=== PATIENT | male | born 1965 | race Caucasian/White ===

== ENCOUNTER 2022-04-30 08:44 | Inpatient (IN) ==
[2022-04-30] MEDS ORDERED: ASPIRIN CHEW 324 MG PO STA (08:53)
[2022-04-30] MEDS ORDERED: SODIUM CHLORIDE 0.9% 1000ML 1,000 ML IV ONE (08:55)
--- NOTE | 2022-04-30 08:55 | Emergency Department Note ---
Impression & Plan Syncope, Current tobacco use, Abnormal ECG, HTN (hypertension) ED Provider Note NAME: SHASTA PEREZ AGE: 56 SEX: M : 1965 ARRIVES VIA: Ambulance INFORMANT: Patient ED PROVIDER(S): Julio Cesar Fuentes DO CHIEF COMPLAINT: syncope HPI: Patient is a 56-year-old male who presents to the ER for syncope. He was working for [employer]. He was working and he felt very dizzy and lightheaded and passed out. He denies any chest pain or shortness of breath preceding or following the event. No belly pain, nausea, vomiting, or diarrhea. No dysuria, urgency, or frequency. No other exacerbating or remitting factors. Does have a history of hypertension, hyperlipidemia and is a smoker. ROS: See above HPI for pertinent positives & negatives. A total of 10 systems reviewed and were otherwise negative. PAST MEDICAL HISTORY:See Below PAST SURGICAL HISTORY:See Below FAMILY HISTORY:See Below SOCIAL HISTORY:See Below HOME MEDICATIONS:See Below ALLERGIES:See Below VITALS:See Below PHYSICAL EXAMINATION: GENERAL: Sitting up in bed, alert, well appearing, well nourished, no distress, non-toxic EYE EXAM: normal conjunctiva. OROPHARYNX: no exudate, no erythema, lips, buccal mucosa, and tongue normal and mucous membranes are moist NECK: supple, no nuchal rigidity, no adenopathy, non-tender LUNGS: Clear to auscultation. Normal chest wall mechanics HEART: no murmurs, S1 normal and S2 normal ABDOMEN: abdomen soft, non-tender, normo-active bowel sounds, no masses, no rebound or guarding. UPPER EXTREMITIES: upper extremities are grossly normal. LOWER EXTREMITIES: No pitting edema. NEURO EXAM: Normal sensorium, cranial nerves II-XII grossly intact, normal speech, no gross weakness of arms, no gross weakness of legs. MEDICAL DECISION MAKING: Patient is a 56-year-old male who presents ER for syncopal episode. IV was established blood work was obtained. He was brought in by EMS. Labs show no significant leukocytosis or anemia. BMP with slightly low CO2 at 19. There is no seizure activity per EMS. LFTs bilirubin were unremarkable. Troponin was negative. Lipase was unremarkable. COVID was negative. EKG showed ST depressions and T wave inversions in the inferior leads with no old to compare to. With his presentation of syncope and commendation with abnormal EKG and hypertension discussed with hospitalist for further evaluation. Triage Nursing notes reviewed. Limited review of prior medical records performed Vital Signs: reviewed and remarkable for no significant abnormalities Differential diagnosis: Differential diagnosis includes etiologies such as vasovagal event, infection, hypoglycemia, electrolyte abnormalities, cardiac sources, intracerebral event, toxicologic, neurologic, as well as others were entertained. ER treatment provided: See below Diagnostics interpreted by me: ECG: Sinus rhythm rate 86 ST depressions in inferior leads with T wave inversion Septal Q waves Nonspecific ST wave changes in the lateral leads QTC 418 Cardiac Monitoring: An order was placed for continuous cardiac monitoring. The monitor shows a rate of 89 with sinus rhythm. Laboratory studies: As stated above and show below. Imaging studies: Portable AP upright 1 view of the chest is unremarkable Consultation(s): Discussed with hospitalist for further evaluation [facility] Procedures: none Critical Care: None Past Med/Surg History Medical History Dyslipidemia Essential hypertension Surgical History History of hernia surgery S/P tonsillectomy Social History (Updated 04/30/22 @ 11:08 by Marlene De Los Santos PA-C) Smoking Status: Current every day smoker Tobacco Type: Cigarettes Cigarettes Per Day: 2 PPD since late teens; Do You Dip or Chew Tobacco: No; Tobacco Cessation Education Requested by Patient: No Hx Alcohol Use: Yes (Occasional depending on social setting - does not consume daily) Alcohol type: beer and wine Hx Substance Use: No Preferred Language: Guamanian Communication Ability: Effective Manager Mental Health Required: No Beliefs That Will Affect Care: None marital status: Current Living Situation: Spouse current occupational status: employed current occupation: works for [employer] Other Information That Helps Us Care for You: No Feels Safe at Home: Yes Safety Concerns: Feels Safe At This Time Assistive Devices: Glasses Allergies Allergies Allergy/AdvReac Type Severity Reaction Status Date / Time Penicillins Allergy Unknown Verified 05/31/19 11:50 Home Meds Home Medications Medication Instructions Recorded Confirmed amlodipine 5 mg tablet 5 mg PO DAILY 05/31/19 04/30/22 lisinopril 30 mg tablet 30 mg PO DAILY 05/31/19 04/30/22 rosuvastatin 10 mg tablet 10 mg PO DAILY 05/31/19 04/30/22 Results & Data (ED) Vital Signs Vital Signs - 24 hr 04/30/22 08:47 04/30/22 08:53 04/30/22 08:55 Temperature 36.5 C 36.5 C Temperature Source Oral Oral Pulse Rate 90 88 Pulse Rate [Left Finger] 89 Pulse Rhythm Regular Regular Pulse Rhythm [Left Finger] Regular Pulse Strength Normal Pulse Strength [Left Finger] Normal Respiratory Rate 21 21 21 Respiratory Effort / Characteristics Non-Labored Spontaneous Non-Labored Spontaneous Respiratory Depth Normal Normal Respiratory Pattern Regular Regular Blood Pressure 144/102 H Blood Pressure [Right Arm] 144/102 H Blood Pressure Mean 116 Blood Pressure Mean [Right Arm] 116 Blood Pressure Position Lying Blood Pressure Position [Right Arm] Lying Pulse Oximetry 96 97 97 Oxygen Delivery Method Room Air Room Air Room Air Sepsis Recent Fever Within 48 Hours No Sepsis New/Unexplained Change in Mental Status No Sepsis Action Taken by Nursing No Action Required 04/30/22 09:00 04/30/22 09:33 04/30/22 10:00 Temperature Temperature Source Pulse Rate Pulse Rate [Left Finger] 84 70 75 Pulse Rhythm Pulse Rhythm [Left Finger] Regular Regular Regular Pulse Strength Pulse Strength [Left Finger] Normal Normal Normal Respiratory Rate 18 18 17 Respiratory Effort / Characteristics Non-Labored Spontaneous Non-Labored Spontaneous Non-Labored Spontaneous Respiratory Depth Normal Normal Normal Respiratory Pattern Regular Blood Pressure Blood Pressure [Right Arm] 130/92 144/96 H 168/102 H Blood Pressure Mean Blood Pressure Mean [Right Arm] 104 112 124 Blood Pressure Position Blood Pressure Position [Right Arm] Lying Lying Lying Pulse Oximetry 98 97 99 Oxygen Delivery Method Room Air Room Air Room Air Sepsis Recent Fever Within 48 Hours Sepsis New/Unexplained Change in Mental Status Sepsis Action Taken by Nursing Laboratory Data Result diagrams: 04/30/22 08:55 04/30/22 08:55 Lab Results 04/30/22 04/30/22 04/30/22 Range/Units 08:55 08:55 08:55 WBC 10.11 (4.8-10.8) K/ul RBC 4.73 (4.63-6.08) M/uL Hgb 15.0 (14.0-18.0) g/dl Hct 43.3 (40.1-51.0) % MCV 91.5 (80.0-100.0) fL MCH 31.7 (25.0-34.0) pg MCHC 34.6 (32.0-36.0) g/dL RDW Std Deviation 45.1 (36.4-46.3) fL RDW Coeff of Bar 13.3 (11.5-14.5) % Plt Count 265 (130-400) K/uL MPV 9.6 (9.4-12.4) fL Immature Gran % (Auto) 0.4 % Neut % (Auto) 74.0 % Lymph % (Auto) 18.4 % [place] % (Auto) 6.0 % Eos % (Auto) 0.6 % Baso % (Auto) 0.6 % Neut # (Auto) 7.48 H (1.4-6.5) K/uL Lymph # (Auto) 1.86 (1.2-3.4) K/uL [place] # (Auto) 0.61 (0.24-0.82) K/uL Eos # (Auto) 0.06 (0-0.50) K/uL Baso # (Auto) 0.06 (0-0.2) K/uL Immature Gran # (Auto) 0.04 H (0.00-0.02) K/uL Sodium 139 (136-145) mmol/L Potassium 3.9 (3.5-5.1) mmol/L Chloride 107 (98-107) mmol/L Carbon Dioxide 19 L (21-32) mmol/L Anion Gap 13 H (3-11) BUN 8 (6-23) mg/dl Creatinine 0.89 (0.6-1.4) mg/dl Est Cr Clr Drug Dosing 94.0 ml/min Est GFR ( Amer) 110.0 ml/min Est GFR (Non-Af Amer) 94.9 ml/min BUN/Creatinine Ratio 9.0 L (10-20) Glucose 118 H (70-99(Fasting)) mg/dl Calcium 8.7 (8.5-10.1) mg/dl Total Bilirubin 0.4 (0.2-1.0) mg/dl AST 22 (13-39) U/L ALT 12 (7-52) U/L Alkaline Phosphatase 56 (34-104) U/L Troponin I High Sens 9.8 (0-20) pg/ml Total Protein 6.6 (6.0-8.3) gm/dl Albumin 3.9 (3.4-5.0) gm/dl Globulin 2.7 (2.5-4.0) gm/dl Albumin/Globulin Ratio 1.4 (0.9-2) Lipase 37 (11-82) U/L SARS-CoV-2, RNA, NAAT NEGATIVE (NEGATIVE) Administered Medications Amlodipine Besylate (Amlodipine Besylate 5 Mg Tab) 5 mg PO DAILY LILA Stop: 05/30/22 11:29 Last Admin: 04/30/22 12:38 Dose: 5 mg Documented by: [id number] Lisinopril (Lisinopril 10 Mg Tab) 30 mg PO DAILY LILA Stop: 05/30/22 11:29 Last Admin: 04/30/22 12:38 Dose: 30 mg Documented by: [id number] Rosuvastatin Calcium (Rosuvastatin Calcium 10 Mg Tab) 10 mg PO DAILY LILA Stop: 05/30/22 11:29 Last Admin: 04/30/22 12:39 Dose: 10 mg Documented by: [id number] Discontinued Medications Aspirin (Aspirin Chew 324 Mg) 324 mg PO NOW STA Stop: 04/30/22 08:54 Last Admin: 04/30/22 09:00 Dose: 324 mg Documented by: [id number] Sodium Chloride (Nss 1000ml) 1,000 mls @ 999 mls/hr IV .Q1H1M ONE Stop: 04/30/22 09:55 Last Infusion: 04/30/22 10:20 Dose: 0 mls/hr Documented by: [id number] Admin: 04/30/22 09:00 Dose: 999 mls/hr Documented by: [id number] Ioversol (Optiray 320 125ml) 120 ml IV ONCE ONE Stop: 04/30/22 12:36 Last Admin: 04/30/22 12:35 Dose: 120 ml Documented by: [id number] Imaging Data Radiologist's Impression: Chest X-Ray 04/30/22 08:52 XR chest 1V portable CLINICAL HISTORY: Chest Pain. COMPARISON STUDY: No previous studies for comparison. TECHNIQUE: 1 view of the chest FINDINGS: Single frontal view of the chest demonstrates the cardiomediastinal silhouette to be within normal limits. The lungs are clear of alveolar opacities. There is no evidence for pleural effusion. There is no evidence for vascular congestion. There is no acute osseous pathology. IMPRESSION: 1. No acute cardiopulmonary disease. ACT 112: Negative or not required by law. Electronically signed by: Bolivar Chand M.D. 04/30/2022 9:24 AM Discharge Plan Visit Data Chief Complaint: Syncope Stated Complaint: syncope ED Provider: Julio Cesar Fuentes Discharge Problem: Syncope, Current tobacco use, Abnormal ECG, HTN (hypertension) Patient Disposition: Admitted As Inpatient Discharge Instructions Interventions: ED Discharge Assessment Last Done: 04/30/22 10:48
[2022-04-30 09:07] LABS: Basophils # (auto) 0.06 K/uL (0-0.2); Basophils % (auto) 0.6 %; Eosinophils # (auto) 0.06 K/uL (0-0.50); Eosinophils % (auto) 0.6 %; Hematocrit (blood only) 43.3 % (40.1-51.0); Immature Granulocytes # (auto) 0.04 K/uL (0.00-0.02); Immature Granulocytes % (auto) 0.4 %; Lymphocytes # (auto) 1.86 K/uL (1.2-3.4); Lymphocytes % (auto) 18.4 %; Mean Corpuscular Hemoglobin 31.7 pg (25.0-34.0); Mean Corpuscular Hgb Conc 34.6 g/dL (32.0-36.0); Mean Corpuscular Volume 91.5 fL (80.0-100.0); Mean Platelet Volume 9.6 fL (9.4-12.4); Monocytes # (auto) 0.61 K/uL (0.24-0.82); Neutrophils # (auto) 7.48 K/uL (1.4-6.5); Platelet Count 265 K/uL (130-400); RDW Coefficient of Variation 13.3 % (11.5-14.5); RDW Standard Deviation 45.1 fL (36.4-46.3); Red Blood Count 4.73 M/uL (4.63-6.08); White Blood Count 10.11 K/ul (4.8-10.8)
--- NOTE | 2022-04-30 09:25 | XRay Report ---
XR chest 1V portable CLINICAL HISTORY: Chest Pain. COMPARISON STUDY: No previous studies for comparison. TECHNIQUE: 1 view of the chest FINDINGS: Single frontal view of the chest demonstrates the cardiomediastinal silhouette to be within normal li mits. The lungs are clear of alveolar opacities. There is no evidence for pleural effusion. There is no evidence for vascular congestion. There is no acute osseous pathology. IMPRESSION: 1. No acute cardiopulmonary disease. ACT 112: Negative or not required by law. Electronically signed by: Bolivar Chand M.D. 04/30/2022 9:24 AM
[2022-04-30 09:29] LABS: Albumin Globulin Ratio 1.4 (0.9-2); Albumin Level 3.9 gm/dl (3.4-5.0); Bilirubin,Total 0.4 mg/dl (0.2-1.0); Calcium 8.7 mg/dl (8.5-10.1); Est GFR (Non-African American) 94.9 ml/min; Globulin 2.7 gm/dl (2.5-4.0); Potassium 3.9 mmol/L (3.5-5.1); Total Protein 6.6 gm/dl (6.0-8.3)
[2022-04-30 09:35] LABS: Troponin I High Sensitivity 9.8 pg/ml (0-20)
--- NOTE | 2022-04-30 10:12 | History & Physical Report ---
Date of Service April 30, 2022 Assessment & Plan (1) Syncope: Plan: Seems more likely vasovagal based on clinical picture but question of EKG changes in ED and multiple cardiac risk factors so referred for additional work- up and observation - Observe in PCU overnight for arrhythmia - Check ECHO - CTA head/neck, CT head to evaluate for vascular/brain abnormalities - no known head trauma - Trend troponin, EKG in AM (2) Essential hypertension: Plan: Pt is not consistently taking his BP meds as outpatient - Continue home meds (3) Dyslipidemia: Plan: - Lipid panel in AM - Continue statin (4) Current tobacco use: Plan: Pt seen and reviewed with collaborating physician, Dr. Humphries. Plan of care discussed and as outlined above. Code Status: Full Code DVT Prophylaxis: Angelo De Los Santos PA-C History of Present Illness Chief Complaint: "passed out" this morning Primary Care Provider: Dr. Jocelyn Linares DO This is a 56 y/o male with a PMH of HTN, dyslipidemia and current tobaccco use who presented to the ED today with syncope. 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 The next thing he remembers is waking up with his co-worker who told him that he had passed out. Pt does not recall any specifics of the event. He was brought to the ED [facility]. In the ambulance, he had a slight STACY that has since resolved. He does not recall hitting his head. He is feeling at baseline at present. He denies chest pain or tightness, palpitations, SOB, N/V. He does not recall similar symptoms prior. He has a history of HTN and dyslipidemia but reports that he does not always take his medications consistently and did not take them this morning. He has noted improved in his BP as he has lost weight over the past year - both intentional and unintentional (needs dentures) - a total of 40-50 lbs lost. No prior cardiac work-up that he can recall. His father did have a stroke and his paternal uncle of a massive DE in his early 40s. Allergies Allergy/AdvReac Type Severity Reaction Status Date / Time Penicillins Allergy Unknown Verified 05/31/19 11:50 Home Medications Medication Instructions Recorded Confirmed Type amlodipine 5 mg tablet 5 mg PO DAILY 05/31/19 04/30/22 History lisinopril 30 mg tablet 30 mg PO DAILY 05/31/19 04/30/22 History rosuvastatin 10 mg tablet 10 mg PO DAILY 05/31/19 04/30/22 History Past Med/Surg History Medical History Dyslipidemia Essential hypertension Surgical History History of hernia surgery S/P tonsillectomy Social History (Updated 04/30/22 @ 11:08 by Marlene De Los Santos PA-C) Smoking Status: Current every day smoker Tobacco Type: Cigarettes Cigarettes Per Day: 2 PPD since late teens; Do You Dip or Chew Tobacco: No; Tobacco Cessation Education Requested by Patient: No Hx Alcohol Use: Yes (Occasional depending on social setting - does not consume daily) Alcohol type: beer and wine Hx Substance Use: No Preferred Language: [place] Islander Communication Ability: Effective Oenologist Required: No Beliefs That Will Affect Care: None marital status: Current Living Situation: Spouse current occupational status: employed current occupation: works for [employer] Other Information That Helps Us Care for You: No Feels Safe at Home: Yes Safety Concerns: Feels Safe At This Time Assistive Devices: Glasses Review of Systems Review of Systems: All systems reviewed & are unremarkable except as noted in HPI & below Constitutional: + weight loss (see HPI); no fever and no chills Eyes: no diplopia and no worsening vision Ear, Nose, Mouth, Throat: no nasal congestion, no sore throat and no dysphagia Respiratory: no cough, no dyspnea and no wheezing Cardiovascular: + syncope and + edema (occasional LE); no chest pain and no palpitations Gastrointestinal: no abdominal pain, no nausea, no vomiting, no diarrhea/loose stools and no blood in stools Genitourinary: no dysuria or no hematuria Musculoskeletal: + back pain (occasional) and + joint pain (occasional knee pain) Integumentary: no rash and no yellowing of the skin Neurologic: as per Subjective / HPI; no seizure-like activity, no headache(s) and no abnormal speech Psychiatric: no depression and no anxiety Physical Exam Constitutional: well developed and well nourished; no acute distress Eyes: PERRL, conjunctivae normal, anicteric sclerae EOM intact bilaterally Neck: trachea midline Respiratory: no respiratory distress and no labored breathing Auscultation: lungs clear to auscultation bilaterally; no rales, no rhonchi and no wheezes Cardiovascular: Rate/Rhythm: regular rate and regular rhythm Heart Sounds: no gallop, no murmur and no cardiac rub Vessels: radial pulses present; no JVD and no carotid bruit Extremities: no edema Gastrointestinal (Abdomen): Inspection/Auscultation: normal bowel sounds; abdomen not distended Percussion/Palpation: abdomen soft; abdomen nontender Musculoskeletal: Head/Neck/Chest: normocephalic, head atraumatic and neck supple Skin: no jaundice Neurologic: moves all extremities; no focal motor deficits and not confused Speech / Cognition: normal speech Motor/Sensory: no fasciculations, no pronator drift and no asterixis Cranial Nerves: PERRL, normal accommodation, EOM intact bilaterally, normal facial strength, tongue midline, able to rotate head bilaterally, able to elevate shoulders bilaterally and symmetric palate elevation Psychiatric: A+Ox3, euthymic affect Results & Data Results & Data ([facility]) Vital Signs (Past 12 Hours) Vital Signs Temp Pulse Pulse Resp BP BP Pulse Ox 04/30/22 10:00 75 17 168/102 H 99 04/30/22 09:33 70 18 144/96 H 97 04/30/22 09:00 84 18 130/92 98 04/30/22 08:55 88 21 97 04/30/22 08:53 36.5 C 89 21 144/102 H 97 04/30/22 08:47 36.5 C 90 21 144/102 H 96 Laboratory Results Laboratory Results - last 24 hr 04/30/22 04/30/22 04/30/22 08:55 08:55 08:55 WBC 10.11 RBC 4.73 Hgb 15.0 Hct 43.3 MCV 91.5 MCH 31.7 MCHC 34.6 RDW Std Deviation 45.1 RDW Coeff of Bar 13.3 Plt Count 265 MPV 9.6 Immature Gran % (Auto) 0.4 Neut % (Auto) 74.0 Lymph % (Auto) 18.4 [place] % (Auto) 6.0 Eos % (Auto) 0.6 Baso % (Auto) 0.6 Neut # (Auto) 7.48 H Lymph # (Auto) 1.86 [place] # (Auto) 0.61 Eos # (Auto) 0.06 Baso # (Auto) 0.06 Immature Gran # (Auto) 0.04 H Sodium 139 Potassium 3.9 Chloride 107 Carbon Dioxide 19 L Anion Gap 13 H BUN 8 Creatinine 0.89 Est Cr Clr Drug Dosing 94.0 Est GFR ( Amer) 110.0 Est GFR (Non-Af Amer) 94.9 BUN/Creatinine Ratio 9.0 L Glucose 118 H Calcium 8.7 Total Bilirubin 0.4 AST 22 ALT 12 Alkaline Phosphatase 56 Troponin I High Sens 9.8 Total Protein 6.6 Albumin 3.9 Globulin 2.7 Albumin/Globulin Ratio 1.4 Lipase 37 SARS-CoV-2, RNA, NAAT NEGATIVE Diagnostic Findings Chest X-ray 04/30/22 - IMPRESSION: 1. No acute cardiopulmonary disease. Medications Administered Discontinued Medications Aspirin (Aspirin Chew 324 Mg) 324 mg PO NOW STA Stop: 04/30/22 08:54 Last Admin: 04/30/22 09:00 Dose: 324 mg Documented by: [id number] Sodium Chloride (Nss 1000ml) 1,000 mls @ 999 mls/hr IV .Q1H1M ONE Stop: 04/30/22 09:55 Last Admin: 04/30/22 09:00 Dose: 999 mls/hr Documented by: [id number] Supervising Physician Co-Signing Physician Notes Pt was seen and examined/. Agreed with Rajinder GALLO exam, assessment and plan. 56 y/o male with a PMH of HTN, dyslipidemia and tobacco use who presented to the ED today with syncope. 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 Pt said that he was sweating a lot that is unusual for him. He said the next that he was seeing his co-worker next to him who told him that he had passed out. He denied any chest pain, palpitation, dizziness and SOB prior to the event. Exam showed no focal neuro deficit, Cardiac exam with no murmur and regular rate. Currently he said that he feels fine. Episode seems to be vasovagal but needs to r/o cardiac and neurological etiology. Will get a CT head and CTA head and neck. Will get an echo. Will monitor closely in telemetry. Fall precaution. MD Kristel
[2022-04-30] MEDS ORDERED: ACETAMINOPHEN 325 MG TAB PO PRN (11:04)
[2022-04-30] MEDS ORDERED: OPTIRAY 320 125ml IV ONE (12:35)
[2022-04-30] MEDS: lisinopril 10 MG TAB PO SCH (12:38)
[2022-04-30] MEDS: amLODIPine BESYLATE 5 MG TAB PO SCH (12:38)
[2022-04-30] MEDS: ROSUVASTATIN CALCIUM 10 MG TAB PO SCH (12:39)
--- NOTE | 2022-04-30 12:52 | CT Scan Report ---
CT angio neck with con, CT head/brain wo con, CT angio head w con CLINICAL HISTORY: syncope TECHNIQUE: Contiguous axial CT images of the head were acquired from the base of the skull to the sally anika without intravenous contrast administration. CT angiography of the head and neck was performed f ollowing intravenous administration of iodinated contrast. Coronal and sagittal MIPS were obtained fr om the axial data set and were submitted for review. Automated dose lowering techniques and/or adjus tment according to patient size were utilized for this examination. All measurements were calculated based on NASCET criteria. CT DOSE: 1047.45 mGy.cm Comparison: None available at the time of this dictation. FINDINGS: CT head: Areas of decreased attenuation are present in the periventricular and subcortical white hai er bilaterally consistent with small vessel ischemic disease. Generalized cerebral atrophy with comme nsurate enlargement of the ventricles, sulci, and cisterns is also present. Calcific densities are se en in the left cerebellum is noted. Lungs and soft tissues are unremarkable. CTA Neck: A 3 vessel aortic arch is shown. There is no significant atherosclerotic plaque in the aor tic arch or the origins of the innominate, left common carotid, and left subclavian arteries. The c ommon carotid, external carotid, cervical segments of the internal carotid arteries, and the cervical segments of the vertebral arteries are patent without hemodynamically significant stenosis. Codomina nt CTA Head: The anterior and posterior cerebral circulations are patent. No hemodynamically significan t stenosis, aneurysm, dissection, or arteriovenous malformation is shown. Atherosclerotic disease is noted. IMPRESSION: 1. No acute intracranial hemorrhage, evidence of acute territorial infarction, or other acute intrac ranial disease process. Calcifications in the left cerebellum are likely chronic. 2. No occlusion, hemodynamically significant stenosis, aneurysm, dissection, or arteriovenous malfor mation in the major intracranial arteries. 3. No occlusion, hemodynamically significant stenosis, or dissection in the major cervical arteries. Assessment of stenosis of the internal carotid arteries is based on NASCET criteria. ACT 112: Negative or not required by law. Electronically signed by: Tomás Simmons M.D. 04/30/2022 12:50 PM
--- NOTE | 2022-04-30 13:03 | Electrocardiogram Report ---
Test Reason : Blood Pressure : / mmHG Vent. Rate : 086 BPM Atrial Rate : 086 BPM P-R Int : 146 ms QRS Dur : 082 ms QT Int : 350 ms P-R-T Axes : 075 056 -26 degrees QTc Int : 418 ms Normal sinus rhythm Abnormal ECG No previous ECGs available Confirmed by Sherif Archibald ([id number]) on 04/30/2022 1:03:06 PM Referred By: REFERRED SELF Confirmed By:Jitendra Archibald
[2022-05-01 06:07] LABS: Basophils # (auto) 0.06 K/uL (0-0.2); Basophils % (auto) 0.8 %; Eosinophils # (auto) 0.09 K/uL (0-0.50); Eosinophils % (auto) 1.2 %; Hematocrit (blood only) 40.8 % (40.1-51.0); Immature Granulocytes # (auto) 0.02 K/uL (0.00-0.02); Immature Granulocytes % (auto) 0.3 %; Lymphocytes # (auto) 2.29 K/uL (1.2-3.4); Lymphocytes % (auto) 31.5 %; Mean Corpuscular Hemoglobin 31.7 pg (25.0-34.0); Mean Corpuscular Hgb Conc 34.3 g/dL (32.0-36.0); Mean Corpuscular Volume 92.3 fL (80.0-100.0); Mean Platelet Volume 9.7 fL (9.4-12.4); Monocytes # (auto) 0.73 K/uL (0.24-0.82); Neutrophils # (auto) 4.09 K/uL (1.4-6.5); Neutrophils % (auto) 56.2 %; Platelet Count 228 K/uL (130-400); RDW Coefficient of Variation 13.1 % (11.5-14.5); RDW Standard Deviation 44.7 fL (36.4-46.3); Red Blood Count 4.42 M/uL (4.63-6.08); White Blood Count 7.28 K/ul (4.8-10.8)
[2022-05-01 06:34] LABS: BUN Creatinine Ratio 13.2 (10-20); Calcium 8.2 mg/dl (8.5-10.1); Chol HDL Ratio 2.6 (0-5); Creatinine Clr Calc Pharmacy 108.2 ml/min; Est GFR (African American) 122.9 ml/min; Potassium 3.9 mmol/L (3.5-5.1)
[2022-05-01] MEDS: amLODIPine BESYLATE 5 MG TAB PO SCH (08:09)
[2022-05-01] MEDS: lisinopril 10 MG TAB PO SCH (08:09)
[2022-05-01] MEDS: ROSUVASTATIN CALCIUM 10 MG TAB PO SCH (08:09)
--- NOTE | 2022-05-01 10:36 | Hospitalist Progress Note ---
Date of Service May 01, 2022 Assessment & Plan (1) Syncope: Plan: Initially believed to be likely vasovagal based on clinical picture but question of EKG changes in ED and multiple cardiac risk factors so referred for additional work-up and observation - admitted for Observation in PCU overnight for arrhythmia - ECHO obtained - no significant valvular pathology noted, EF ~60%, no hypokinesis noted - no known head trauma - CTA head/neck, CT head to evaluate for vascular/brain abnormalities - obtained and unremarkable - Trend troponin, EKG in AM - initial troponin in ED negative, repeat troponin 119 - pt without any chest pain. Admitting physician obtained EKG - this AM repeat EKG w/ changes T wave inversions -pt continues to be w/o any chest pain, and been ambulating hallways -reports significant diaphoresis prior to his syncopal episode (pt also had si gnificant exertion, lifting heavy grates outside in hot weather) - Cardiology was consulted for further evaluation - pt to catheter builder, underwent stent to LAD - tolerated procedure well (2) Essential hypertension: Plan: Pt is not consistently taking his BP meds as outpatient - Continue home meds, will discuss further prior to DC (3) Dyslipidemia: Plan: - Lipid panel - Continue statin (4) Current tobacco use: Plan Code Status: Full Code DVT Prophylaxis: SCDs Admission and Anticipated Discharge Date Admission Date: April 30, 2022 Subjective Patient seen in follow-up of syncope Yesterday pt's troponin elevated, pt denied any chest pain, and has been walking in hallways Reports significant diaphoresis prior to syncopal episode echo obtained yesterday, and CTA head and neck EKG changes noted this AM - cardiology consulted Pt denies fever, chills, chest pain, shortness of breath, abd. pain, n/v Pt underwent cardiac cath - s/p stent to LAD - he is feeling well after procedure Review of Systems Review of Systems: All systems reviewed & are unremarkable except as noted in Subjective Physical Exam Physical Exam: Constitutional:L well developed and well nourished; n o acute distress Eyes: PERRL, conjunctiva e normal, anicteri c sclerae EOM int act bilaterally Neck: trachea midline Respiratory: no respiratory dis tress and no labor ed breathing Ausc ultation: lungs cl ear to auscultatio n bilaterally; no rales, no rhonchi and no wheezes Cardiovascular:L Rate/Rhythm: regul ar rate and regula r rhythm Heart So unds: no gallop, n o murmur and no ca rdiac rubExtremit ies: no edema Gastrointestinal ( Abdomen): Inspection/Auscult ation: normal zoraida l sounds; abdomen not distended Per cussion/Palpation: abdomen soft; abd omen nontender Musculoskeletal: Head/Neck/Chest: n ormocephalic, head atraumatic and ne ck supple Skin: no jaundice Neurologic: moves all extremit ies; no focal blaire r deficits and not confused Speech / Cognition: dionte l speechCranial N erves: PERRL, EOM intact bilaterally , no facial asymme try Psychiatric: A+Ox3, euthymic af fect Results & Data Results & Data ([facility]) Vital Signs (Past 12 Hours) Vital Signs Temp Pulse Pulse Resp BP Pulse Ox 05/01/22 08:07 36.4 C L 57 L 20 132/85 99 05/01/22 07:15 62 05/01/22 03:49 36.4 C L 67 18 146/95 H 97 04/30/22 23:41 36.7 C 65 18 133/82 98 Laboratory Results 05/01/22 05/01/22 05/01/22 Range/Units 05:40 05:40 05:40 WBC 7.28 (4.8-10.8) K/ul RBC 4.42 L (4.63-6.08) M/uL Hgb 14.0 (14.0-18.0) g/dl Hct 40.8 (40.1-51.0) % MCV 92.3 (80.0-100.0) fL MCH 31.7 (25.0-34.0) pg MCHC 34.3 (32.0-36.0) g/dL RDW Std Deviation 44.7 (36.4-46.3) fL RDW Coeff of Bar 13.1 (11.5-14.5) % Plt Count 228 (130-400) K/uL MPV 9.7 (9.4-12.4) fL Immature Gran % (Auto) 0.3 % Neut % (Auto) 56.2 % Lymph % (Auto) 31.5 % [place] % (Auto) 10.0 % Eos % (Auto) 1.2 % Baso % (Auto) 0.8 % Neut # (Auto) 4.09 (1.4-6.5) K/uL Lymph # (Auto) 2.29 (1.2-3.4) K/uL [place] # (Auto) 0.73 (0.24-0.82) K/uL Eos # (Auto) 0.09 (0-0.50) K/uL Baso # (Auto) 0.06 (0-0.2) K/uL Immature Gran # (Auto) 0.02 (0.00-0.02) K/uL Sodium 137 (136-145) mmol/L Potassium 3.9 (3.5-5.1) mmol/L Chloride 108 H (98-107) mmol/L Carbon Dioxide 23 (21-32) mmol/L Anion Gap 6 (3-11) BUN 9 (6-23) mg/dl Creatinine 0.68 (0.6-1.4) mg/dl Est Cr Clr Drug Dosing 108.2 ml/min Est GFR ( Amer) 122.9 ml/min Est GFR (Non-Af Amer) 106.0 ml/min BUN/Creatinine Ratio 13.2 (10-20) Glucose 95 (70-99(Fasting)) mg/dl Calcium 8.2 L (8.5-10.1) mg/dl Troponin I High Sens (0-20) pg/ml Triglycerides 73 (0-150) mg/dl Cholesterol 134 (0-200) mg/dl LDL Cholesterol, Calc 67 mg/dl VLDL Cholesterol, Calc 15 (0-30) mg/dl HDL Cholesterol 52 mg/dl Cholesterol/HDL Ratio 2.6 (0-5) TSH 1.101 (0.300-4.500) uIu/ml Hepatitis C Ab (EIA) Hep C Ab Signal/Cutoff 05/01/22 04/30/22 04/30/22 Range/Units 05:40 20:57 14:50 WBC (4.8-10.8) K/ul RBC (4.63-6.08) M/uL Hgb (14.0-18.0) g/dl Hct (40.1-51.0) % MCV (80.0-100.0) fL MCH (25.0-34.0) pg MCHC (32.0-36.0) g/dL RDW Std Deviation (36.4-46.3) fL RDW Coeff of Bar (11.5-14.5) % Plt Count (130-400) K/uL MPV (9.4-12.4) fL Immature Gran % (Auto) % Neut % (Auto) % Lymph % (Auto) % [place] % (Auto) % Eos % (Auto) % Baso % (Auto) % Neut # (Auto) (1.4-6.5) K/uL Lymph # (Auto) (1.2-3.4) K/uL [place] # (Auto) (0.24-0.82) K/uL Eos # (Auto) (0-0.50) K/uL Baso # (Auto) (0-0.2) K/uL Immature Gran # (Auto) (0.00-0.02) K/uL Sodium (136-145) mmol/L Potassium (3.5-5.1) mmol/L Chloride (98-107) mmol/L Carbon Dioxide (21-32) mmol/L Anion Gap (3-11) BUN (6-23) mg/dl Creatinine (0.6-1.4) mg/dl Est Cr Clr Drug Dosing ml/min Est GFR ( Amer) ml/min Est GFR (Non-Af Amer) ml/min BUN/Creatinine Ratio (10-20) Glucose (70-99(Fasting)) mg/dl Calcium (8.5-10.1) mg/dl Troponin I High Sens 66.5 H* D 119.1 H* D (0-20) pg/ml Triglycerides (0-150) mg/dl Cholesterol (0-200) mg/dl LDL Cholesterol, Calc mg/dl VLDL Cholesterol, Calc (0-30) mg/dl HDL Cholesterol mg/dl Cholesterol/HDL Ratio (0-5) TSH (0.300-4.500) uIu/ml Hepatitis C Ab (EIA) Pending Hep C Ab Signal/Cutoff Pending Medications Administered Current Inpatient Medications Acetaminophen (Acetaminophen 325 Mg Tab) 650 mg PO Q4H PRN PRN Reason: Pain or Fever Stop: 05/30/22 11:03 Amlodipine Besylate (Amlodipine Besylate 5 Mg Tab) 5 mg PO DAILY [facility] Stop: 05/30/22 11:29 Last Admin: 05/01/22 08:09 Dose: 5 mg Documented by: Lisinopril (Lisinopril 10 Mg Tab) 30 mg PO DAILY [facility] Stop: 05/30/22 11:29 Last Admin: 05/01/22 08:09 Dose: 30 mg Documented by: Rosuvastatin Calcium (Rosuvastatin Calcium 10 Mg Tab) 10 mg PO DAILY [facility] Stop: 05/30/22 11:29 Last Admin: 05/01/22 08:09 Dose: 10 mg Documented by: (1) Syncope Syncope type: unspecified Qualified Code(s): R55 - Syncope and collapse
--- NOTE | 2022-05-01 11:51 | Cardiology Consultation ---
Date of Consultation May 01, 2022 Assessment & Plan (1) Abnormal ECG: (2) HTN (hypertension): (3) Syncope: (4) Elevated troponin: Plan Patient admitted after syncopal event yesterday associated with diaphoresis. Initial EKG with T wave inversion in inferior leads. Minimally elevated troponin overnight. No recurrent symptoms. EKG this morning with acute changes, transient. ST/T wave elevation in anterolateral leads. No symptoms at the time. Repeat troponin pending. Given his recent events, elevated troponin, abnormal EKG, and cardiac risk factors, recommend proceeding with diagnostic cardiac catheterization. NPO at this time. Repeat EKG with resolution of anterolateral ST/T wave abnormality. Persistent T wave inversion in inferior leads. Echo yesterday without acute changes/findings. Case discussed with Dr. Narayan. Plan for cath this afternoon. Patient/ agreeable. Taken to [employer] lab[employer]. Supervising Physician Co-Signing Physician Notes Patient seen examined the bedside. Denies chest pain or shortness of breath. Reports excessive diaphoresis yesterday followed by syncope while at work. Feeling well overnight. ECG performed in the early a.m. hours demonstrating ST elevation in the anterior lateral leads concerning for acute injury pattern. PE: VSS. Gen: NAD, AAO x3. Heart: Regular, normal S1-S2. No murmur. Lungs: Clear bilateral, no rales rhonchi or wheeze. Extremities: No edema. Palpable radial and femoral pulses. A/P: Agree with above PA-C history, physical exam, assessment and plan. 56-year-old patient with history of heavy tobacco abuse admitted with syncopal episode preceded by severe diaphoresis. ECG this morning suggestive of anterior lateral injury pattern. Troponins elevated. Recommend cardiac catheterization for further evaluation. Risk, benefit, and alternatives to procedure discussed. Patient agreeable. History of Present Illness Reason for Consultation: Syncope; abnormal EKG; Elevated troponin Requesting Physician: Dr. Mccarty Attending Physician: Dr. Narayan History of Present Illness Patient is a 56 year old male with history of chronic tobacco abuse, hypertension, dyslipidemia. He denies history of cardiac problems or issues. 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 He recalls being lightheaded suddenly, but otherwise does not recall events. His co worker witnessed event and shook him to "wake him up." No loss of bowel or bladder function. No prior occurrences of syncope. He denied associated chest pain yesterday or dyspnea. He just recalls significant diaphoresis when he presented to ER. EKG at that time demonstrated mild inferior ST/T wave abnormality. Initial troponin normal. REpeat troponin mildly elevated at 111, with repeat around 66. He had no recurrent events last night. This morning repeat EKG demonstrated significant ST/T wave abnormality in anterolateral leads. Patient denied symptoms of CP/SOB. Repeat troponin was not drawn. No recurrent dizziness. He currently is asymptomatic. He does admit to intermittent "chest burning" over the last 6 months. Occurs at rest and with exertion. He felt this was possible 'heart burn'. Allergies Allergy/AdvReac Type Severity Reaction Status Date / Time Penicillins Allergy Unknown Verified 05/31/19 11:50 Home Medications Medication Instructions Recorded Confirmed Type amlodipine 5 mg tablet 5 mg PO DAILY 05/31/19 04/30/22 History lisinopril 30 mg tablet 30 mg PO DAILY 05/31/19 04/30/22 History rosuvastatin 10 mg tablet 10 mg PO DAILY 05/31/19 04/30/22 History Patient History Medical History (Updated 05/02/22 @ 10:35 by Rosemary Kuhn PA-C) CAD (coronary artery disease) Dyslipidemia Essential hypertension Surgical History (Updated 05/02/22 @ 10:35 by Rosemary Kuhn PA-C) History of hernia surgery S/P tonsillectomy Social History Smoking Status: Current every day smoker Tobacco Type: Cigarettes Cigarettes Per Day: 2 PPD since late teens; Do You Dip or Chew Tobacco: No; Tobacco Cessation Education Requested by Patient: No Hx Alcohol Use: Yes (Occasional depending on social setting - does not consume daily) Alcohol type: beer and wine Hx Substance Use: No Preferred Language: Mohawk Communication Ability: [employer] Computer Consultant Required: No Beliefs That Will Affect Care: None marital status: Current Living Situation: Spouse current occupational status: employed current occupation: works for [employer] Other Information That Helps Us Care for You: No Feels Safe at Home: Yes Safety Concerns: Feels Safe At This Time Assistive Devices: None Review of Systems Review of Systems: All systems reviewed & are unremarkable except as noted in HPI & below Physical Exam Constitutional: WD/WN, vitals as above well developed; no acute distress Neck: trachea midline, no thyromegaly Respiratory: normal respiratory effort, lungs clear to auscultation Cardiovascular: Rate/Rhythm: regular rate and regular rhythm Heart Sounds: normal S1 and normal S2; no murmur Extremities: no edema Gastrointestinal (Abdomen): normal bowel sounds, soft, nontender, no hepatosplenomegaly Musculoskeletal: no cyanosis or clubbing, extremities motor strength 5/5 Neurologic: PERRL, EOMI, accommodation nl, no face palsy, no dysarthria Results & Data ([facility]) Vital Signs (Past 12 Hours) Vital Signs Temp Pulse Pulse Resp BP Pulse Ox 05/01/22 08:07 36.4 C L 57 L 20 132/85 99 05/01/22 07:15 62 05/01/22 03:49 36.4 C L 67 18 146/95 H 97 04/30/22 23:41 36.7 C 65 18 133/82 98 Laboratory Results Laboratory Results WBC 7.28 K/ul (4.8-10.8) 05/01/22 05:40 RBC 4.42 M/uL (4.63-6.08) L 05/01/22 05:40 Hgb 14.0 g/dl (14.0-18.0) 05/01/22 05:40 Hct 40.8 % (40.1-51.0) 05/01/22 05:40 MCV 92.3 fL (80.0-100.0) 05/01/22 05:40 MCH 31.7 pg (25.0-34.0) 05/01/22 05:40 MCHC 34.3 g/dL (32.0-36.0) 05/01/22 05:40 RDW Std Deviation 44.7 fL (36.4-46.3) 05/01/22 05:40 RDW Coeff of Bar 13.1 % (11.5-14.5) 05/01/22 05:40 Plt Count 228 K/uL (130-400) 05/01/22 05:40 MPV 9.7 fL (9.4-12.4) 05/01/22 05:40 Immature Gran % (Auto) 0.3 % 05/01/22 05:40 Neut % (Auto) 56.2 % 05/01/22 05:40 Lymph % (Auto) 31.5 % 05/01/22 05:40 [place] % (Auto) 10.0 % 05/01/22 05:40 Eos % (Auto) 1.2 % 05/01/22 05:40 Baso % (Auto) 0.8 % 05/01/22 05:40 Neut # (Auto) 4.09 K/uL (1.4-6.5) 05/01/22 05:40 Lymph # (Auto) 2.29 K/uL (1.2-3.4) 05/01/22 05:40 [place] # (Auto) 0.73 K/uL (0.24-0.82) 05/01/22 05:40 Eos # (Auto) 0.09 K/uL (0-0.50) 05/01/22 05:40 Baso # (Auto) 0.06 K/uL (0-0.2) 05/01/22 05:40 Immature Gran # (Auto) 0.02 K/uL (0.00-0.02) 05/01/22 05:40 Sodium 137 mmol/L (136-145) 05/01/22 05:40 Potassium 3.9 mmol/L (3.5-5.1) 05/01/22 05:40 Chloride 108 mmol/L (98-107) H 05/01/22 05:40 Carbon Dioxide 23 mmol/L (21-32) 05/01/22 05:40 Anion Gap 6 (3-11) 05/01/22 05:40 BUN 9 mg/dl (6-23) 05/01/22 05:40 Creatinine 0.68 mg/dl (0.6-1.4) 05/01/22 05:40 Est Cr Clr Drug Dosing 108.2 ml/min 05/01/22 05:40 Est GFR ( Amer) 122.9 ml/min 05/01/22 05:40 Est GFR (Non-Af Amer) 106.0 ml/min 05/01/22 05:40 BUN/Creatinine Ratio 13.2 (10-20) 05/01/22 05:40 Glucose 95 mg/dl (70-99(Fasting)) 05/01/22 05:40 Calcium 8.2 mg/dl (8.5-10.1) L 05/01/22 05:40 Total Bilirubin 0.4 mg/dl (0.2-1.0) 04/30/22 08:55 AST 22 U/L (13-39) 04/30/22 08:55 ALT 12 U/L (7-52) 04/30/22 08:55 Alkaline Phosphatase 56 U/L (34-104) 04/30/22 08:55 Troponin I High Sens 66.5 pg/ml (0-20) H* D 04/30/22 20:57 Total Protein 6.6 gm/dl (6.0-8.3) 04/30/22 08:55 Albumin 3.9 gm/dl (3.4-5.0) 04/30/22 08:55 Globulin 2.7 gm/dl (2.5-4.0) 04/30/22 08:55 Albumin/Globulin Ratio 1.4 (0.9-2) 04/30/22 08:55 Triglycerides 73 mg/dl (0-150) 05/01/22 05:40 Cholesterol 134 mg/dl (0-200) 05/01/22 05:40 LDL Cholesterol, Calc 67 mg/dl 05/01/22 05:40 VLDL Cholesterol, Calc 15 mg/dl (0-30) 05/01/22 05:40 HDL Cholesterol 52 mg/dl 05/01/22 05:40 Cholesterol/HDL Ratio 2.6 (0-5) 05/01/22 05:40 Lipase 37 U/L (11-82) 04/30/22 08:55 TSH 1.101 uIu/ml (0.300-4.500) 05/01/22 05:40 SARS-CoV-2, RNA, NAAT NEGATIVE (NEGATIVE) 04/30/22 08:55 Impressions Chest X-Ray 04/30/22 08:52 XR chest 1V portable CLINICAL HISTORY: Chest Pain. COMPARISON STUDY: No previous studies for comparison. TECHNIQUE: 1 view of the chest FINDINGS: Single frontal view of the chest demonstrates the cardiomediastinal silhouette to be within normal limits. The lungs are clear of alveolar opacities. There is no evidence for pleural effusion. There is no evidence for vascular congestion. There is no acute osseous pathology. IMPRESSION: 1. No acute cardiopulmonary disease. ACT 112: Negative or not required by law. Electronically signed by: Bolivar Cahnd M.D. 04/30/2022 9:24 AM Head CTA 04/30/22 11:04 CT angio neck with con, CT head/brain wo con, CT angio head w con CLINICAL HISTORY: syncope TECHNIQUE: Contiguous axial CT images of the head were acquired from the base of the skull to the vertex without intravenous contrast administration. CT angiography of the head and neck was performed following intravenous administration of iodinated contrast. Coronal and sagittal MIPS were obtained from the axial data set and were submitted for review. Automated dose lowering techniques and/or adjustment according to patient size were utilized for this examination. All measurements were calculated based on NASCET criteria. CT DOSE: 1047.45 mGy.cm Comparison: None available at the time of this dictation. FINDINGS: CT head: Areas of decreased attenuation are present in the periventricular and subcortical white matter bilaterally consistent with small vessel ischemic disease. Generalized cerebral atrophy with commensurate enlargement of the ventricles, sulci, and cisterns is also present. Calcific densities are seen in the left cerebellum is noted. Lungs and soft tissues are unremarkable. CTA Neck: A 3 vessel aortic arch is shown. There is no significant atherosclerotic plaque in the aortic arch or the origins of the innominate, left common carotid, and left subclavian arteries. The common carotid, external carotid, cervical segments of the internal carotid arteries, and the cervical segments of the vertebral arteries are patent without hemodynamically significa nt stenosis. Codominant CTA Head: The anterior and posterior cerebral circulations are patent. No hemodynamically significant stenosis, aneurysm, dissection, or arteriovenous malformation is shown. Atherosclerotic disease is noted. IMPRESSION: 1. No acute intracranial hemorrhage, evidence of acute territorial infarction, or other acute intracranial disease process. Calcifications in the left cerebellum are likely chronic. 2. No occlusion, hemodynamically significant stenosis, aneurysm, dissection, or arteriovenous malformation in the major intracranial arteries. 3. No occlusion, hemodynamically significant stenosis, or dissection in the major cervical arteries. Assessment of stenosis of the internal carotid arteries is based on NASCET criteria. ACT 112: Negative or not required by law. Electronically signed by: Tomás Simmons M.D. 04/30/2022 12:50 PM Neck CTA 04/30/22 11:04 CT angio neck with con, CT head/brain wo con, CT angio head w con CLINICAL HISTORY: syncope TECHNIQUE: Contiguous axial CT images of the head were acquired from the base of the skull to the vertex without intravenous contrast administration. CT angiogr aphy of the head and neck was performed following intravenous administration of iodinated contrast. Coronal and sagittal MIPS were obtained from the axial data set and were submitted for review. Automated dose lowering techniques and/or adjustment according to patient size were utilized for this examination. All measurements were calculated based on NASCET criteria. CT DOSE: 1047.45 mGy.cm Comparison: None available at the time of this dictation. FINDINGS: CT head: Areas of decreased attenuation are present in the periventricular and subcortical white matter bilaterally consistent with small vessel ischemic disease. Generalized cerebral atrophy with commensurate enlargement of the ventricles, sulci, and cisterns is also present. Calcific densities are seen in the left cerebellum is noted. Lungs and soft tissues are unremarkable. CTA Neck: A 3 vessel aortic arch is shown. There is no significant atherosclerotic plaque in the aortic arch or the origins of the innominate, left common carotid, and left subclavian arteries. The common carotid, external carotid, cervical segments of the internal carotid arteries, and the cervical segments of the vertebral arteries are patent without hemodynamically significant stenosis. Codominant CTA Head: The anterior and posterior cerebral circulations are patent. No hemodynamically significant stenosis, aneurysm, dissection, or arteriovenous malformation is shown. Atherosclerotic disease is noted. IMPRESSION: 1. No acute intracranial hemorrhage, evidence of acute territorial infarction, or other acute intracranial disease process. Calcifications in the left cerebellum are likely chronic. 2. No occlusion, hemodynamically significant stenosis, aneurysm, dissection, or arteriovenous malformation in the major intracranial arteries. 3. No occlusion, hemodynamically significant stenosis, or dissection in the major cervical arteries. Assessment of stenosis of the internal carotid arteries is based on NASCET criteria. ACT 112: Negative or not required by law. Electronically signed by: Tomás Simmons M.D. 04/30/2022 12:[address] 04/30/22 11:14 CT angio neck with con, CT head/brain wo con, CT angio head w con CLINICAL HISTORY: syncope TECHNIQUE: Contiguous axial CT images of the head were acquired from the base of the skull to the vertex without intravenous contrast administration. CT angiography of the head and neck was performed following intravenous administration of iodinated contrast. Coronal and sagittal MIPS were obtained from the axial data set and were submitted for review. Automated dose lowering techniques and/or adjustment according to patient size were utilized for this examination. All measurements were calculated based on NASCET criteria. CT DOSE: 1047.45 mGy.cm Comparison: None available at the time of this dictation. FINDINGS: CT head: Areas of decreased attenuation are present in the periventricular and subcortical white matter bilaterally consistent with small vessel ischemic disease. Generalized cerebral atrophy with commensurate enlargement of the ventricles, sulci, and cisterns is also present. Calcific densities are seen in the left cerebellum is noted. Lungs and soft tissues are unremarkable. CTA Neck: A 3 vessel aortic arch is shown. There is no significant atherosclerotic plaque in the aortic arch or the origins of the innominate, left common carotid, and left subclavian arteries. The common carotid, external carotid, cervical segments of the internal carotid arteries, and the cervical segments of the vertebral arteries are patent without hemodynamically significant stenosis. Codominant CTA Head: The anterior and posterior cerebral circulations are patent. No hemodynamically significant stenosis, aneurysm, dissection, or arteriovenous malformation is shown. Atherosclerotic disease is noted. IMPRESSION: 1. No acute intracranial hemorrhage, evidence of acute territorial infarction, or other acute intracranial disease process. Calcifications in the left cerebellum are likely chronic. 2. No occlusion, hemodynamically significant stenosis, aneurysm, dissection, or arteriovenous malformation in the major intracranial arteries. 3. No occlusion, hemodynamically significant stenosis, or dissection in the major cervical arteries. Assessment of stenosis of the internal carotid arteries is based on NASCET criteria. ACT 112: Negative or not required by law. Electronically signed by: Tomás Simmons M.D. 04/30/2022 12:50 PM Diagnostic Findings Telemetry reviewed: NSR without concerning arrhythmias. EKG from this morning reviewed: NSR with ST/T elevation T wave inversions in anterolateral leads. T wave inversion in inferior leads. EKG from admission: Normal sinus rhythm ST & T wave abnormality, consider inferior ischemia Cardiac Enzymes 04/30/22 04/30/22 Range/Units 14:50 20:57 Troponin I High Sens 119.1 H* D 66.5 H* D (0-20) pg/ml Lipids 05/01/22 Range/Units 05:40 Triglycerides 73 (0-150) mg/dl Cholesterol 134 (0-200) mg/dl HDL Cholesterol 52 mg/dl Cholesterol/HDL Ratio 2.6 (0-5) CBC 05/01/22 Range/Units 05:40 WBC 7.28 (4.8-10.8) K/ul RBC 4.42 L (4.63-6.08) M/uL Hgb 14.0 (14.0-18.0) g/dl Hct 40.8 (40.1-51.0) % Plt Count 228 (130-400) K/uL Neut # (Auto) 4.09 (1.4-6.5) K/uL Lymph # (Auto) 2.29 (1.2-3.4) K/uL [place] # (Auto) 0.73 (0.24-0.82) K/uL Eos # (Auto) 0.09 (0-0.50) K/uL Baso # (Auto) 0.06 (0-0.2) K/uL Comprehensive Metabolic Panel 05/01/22 Range/Units 05:40 Sodium 137 (136-145) mmol/L Potassium 3.9 (3.5-5.1) mmol/L Chloride 108 H (98-107) mmol/L Carbon Dioxide 23 (21-32) mmol/L BUN 9 (6-23) mg/dl Creatinine 0.68 (0.6-1.4) mg/dl Glucose 95 (70-99(Fasting)) mg/dl Calcium 8.2 L (8.5-10.1) mg/dl Intake and Output 04/30/22 05/01/22 05/01/22 22:59 06:59 14:59 Intake Total 500 / 1600 100 / 1600 Balance 500 / 1600 100 / 1600 Intake: Oral 500 / 600 100 / 600 Other: # Unmeasured Voids 2 2 Weight 74.1 kg Weight Measurement [facility] Medications Administered Current Inpatient Medications Acetaminophen (Acetaminophen 325 Mg Tab) 650 mg PO Q4H PRN PRN Reason: Pain or Fever Stop: 05/30/22 11:03 Amlodipine Besylate (Amlodipine Besylate 5 Mg Tab) 5 mg PO DAILY LILA Stop: 05/30/22 11:29 Last Admin: 05/01/22 08:09 Dose: 5 mg Documented by: Lisinopril (Lisinopril 10 Mg Tab) 30 mg PO DAILY LILA Stop: 05/30/22 11:29 Last Admin: 05/01/22 08:09 Dose: 30 mg Documented by: Rosuvastatin Calcium (Rosuvastatin Calcium 10 Mg Tab) 10 mg PO DAILY [facility] Stop: 05/30/22 11:29 Last Admin: 05/01/22 08:09 Dose: 10 mg Documented by: (1) Syncope Syncope type: unspecified Qualified Code(s): R55 - Syncope and collapse (2) HTN (hypertension) Hypertension type: unspecified Qualified Code(s): I10 - Essential (primary) hypertension
--- NOTE | 2022-05-01 11:53 | Pre Anesthesia Assessment ---
Date of Service May 01, 2022 Pre Sedation Assessment Vital Signs Temp Pulse Pulse Pulse Resp BP BP 05/02/22 08:00 60 05/02/22 07:16 36.3 C L 61 20 153/88 H 05/02/22 05:27 36.7 C 79 16 131/56 L 05/01/22 23:09 36.4 C L 62 16 151/87 H 05/01/22 22:01 76 155/97 H 05/01/22 21:08 66 20 133/89 05/01/22 20:02 36.6 C 64 22 158/92 H 05/01/22 19:11 65 151/81 H 05/01/22 18:30 64 18 157/95 H 05/01/22 18:15 62 16 145/91 H 05/01/22 18:00 66 20 136/81 05/01/22 17:45 70 18 125/80 05/01/22 17:30 62 16 149/90 H 05/01/22 17:15 64 18 156/92 H 05/01/22 17:00 66 18 142/86 H 05/01/22 16:45 68 18 145/87 H 05/01/22 16:00 62 05/01/22 16:38 70 20 144/94 H 05/01/22 16:15 71 18 179/100 H 05/01/22 16:00 68 18 134/90 05/01/22 15:45 65 16 145/93 H 05/01/22 15:30 59 L 16 149/89 H 05/01/22 15:16 36.7 C 60 20 146/91 H 05/01/22 14:54 60 16 150/103 H 05/01/22 14:41 60 16 163/103 H 05/01/22 11:58 62 20 138/97 Pulse Ox O2 Del Method 05/02/22 08:00 05/02/22 07:16 98 Room Air 05/02/22 05:27 99 05/01/22 23:09 99 Room Air 05/01/22 22:01 96 Room Air 05/01/22 21:08 98 Room Air 05/01/22 20:02 96 Room Air 05/01/22 19:11 98 Room Air 05/01/22 18:30 100 Room Air 05/01/22 18:15 99 Room Air 05/01/22 18:00 99 Room Air 05/01/22 17:45 99 Room Air 05/01/22 17:30 99 Room Air 05/01/22 17:15 100 Room Air 05/01/22 17:00 100 Room Air 05/01/22 16:45 97 Room Air 05/01/22 16:00 05/01/22 16:38 97 Room Air 05/01/22 16:15 97 Room Air 05/01/22 16:00 98 Room Air 05/01/22 15:45 97 Room Air 05/01/22 15:30 97 Room Air 05/01/22 15:16 98 Room Air 05/01/22 14:54 94 Room Air 05/01/22 14:41 97 Room Air 05/01/22 11:58 97 Room Air Cardiovascular RRR, no murmur, no edema Pre-Sedation Airway Assessment Smoking Status: Current every day smoker NPO Status Date of Last Intake of Solid Food: 05/01/22 Time of Last Intake of Solid Foods: 07:00 Procedure Planning Contraindications for Sedation: none Current Medications Reviewed: Yes Notes The planned sedation has been discussed with the patient. Informed Consent was obtained. I have identified the patient, determined the appropriateness of sedation and have assessed the patient immediately prior to the procedure. All medicine(s) and interventions are by my order.
--- NOTE | 2022-05-01 12:00 | Electrocardiogram Report ---
Test Reason : Blood Pressure : / mmHG Vent. Rate : 074 BPM Atrial Rate : 074 BPM P-R Int : 098 ms QRS Dur : 082 ms QT Int : 372 ms P-R-T Axes : 034 037 -23 degrees QTc Int : 412 ms Sinus rhythm When compared with ECG of 30-APR-2022 08:50, RI interval has decreased Confirmed by Sherif Archibald ([id number]) on 05/01/2022 12:00:27 PM Referred By: REFERRED SELF Confirmed By:Jitendra Archibald
[2022-05-01] MEDS ORDERED: HEPARIN (PORCINE) 1000 UNIT/ML 10 ML (CATH LAB USE ONLY) ONE ×2 (12:03→14:13)
[2022-05-01] MEDS ORDERED: NITROGLYCERIN/D5W 100MCG/ML 20ML SYR ONE (12:03)
[2022-05-01] MEDS ORDERED: fentaNYL citrate 100 MCG/2 ML VIAL ONE ×2 (12:03→14:04)
[2022-05-01] MEDS ORDERED: niCARdipine HCL INJ 2.5 MG/ML 10 ML AMP ONE (12:03)
[2022-05-01] MEDS ORDERED: MIDAZOLAM HCL 1 MG/ML 2ML VIAL ONE ×3 (12:03→13:57)
--- NOTE | 2022-05-01 12:11 | Electrocardiogram Report ---
Test Reason : Blood Pressure : / mmHG Vent. Rate : 064 BPM Atrial Rate : 064 BPM P-R Int : 152 ms QRS Dur : 098 ms QT Int : 372 ms P-R-T Axes : 081 069 -83 degrees QTc Int : 383 ms Normal sinus rhythm T wave abnormality, consider anterolateral ischemia Abnormal ECG When compared with ECG of 01-MAY-2022 06:10, (unconfirmed) Non-specific change in ST segment in Lateral leads Nonspecific T wave abnormality has replaced inverted T waves in Inferior leads T wave inversion now evident in Anterolateral leads Confirmed by Sherif Archibald ([id number]) on 05/01/2022 12:11:27 PM Referred By: REFERRED SELF Confirmed By:Jitendra Archibald
--- NOTE | 2022-05-01 12:11 | Electrocardiogram Report ---
Test Reason : Blood Pressure : / mmHG Vent. Rate : 063 BPM Atrial Rate : 063 BPM P-R Int : 104 ms QRS Dur : 090 ms QT Int : 400 ms P-R-T Axes : 037 037 -35 degrees QTc Int : 409 ms Sinus rhythm T wave abnormality, consider inferior ischemia Abnormal ECG When compared with ECG of 30-APR-2022 15:56, (unconfirmed) No significant change was found Confirmed by Sherif Archibald ([id number]) on 05/01/2022 12:10:59 PM Referred By: REFERRED SELF Confirmed By:Jitendra Archibald
--- NOTE | 2022-05-01 12:15 | Electrocardiogram Report ---
Test Reason : Blood Pressure : / mmHG Vent. Rate : 065 BPM Atrial Rate : 065 BPM P-R Int : 104 ms QRS Dur : 084 ms QT Int : 386 ms P-R-T Axes : 029 058 -23 degrees QTc Int : 401 ms Sinus rhythm T wave abnormality, consider inferior ischemia Abnormal ECG When compared with ECG of 01-MAY-2022 06:22, (unconfirmed) Minimal criteria for Inferior infarct are no longer Present Inverted T waves have replaced nonspecific T wave abnormality in Inferior leads T wave inversion no longer evident in Anterolateral leads Confirmed by Sherif Archibald ([id number]) on 05/01/2022 12:15:28 PM Referred By: REFERRED SELF Confirmed By:Jitendra Archibald
[2022-05-01] MEDS ORDERED: LIDOCAINE 1% LOCAL 20 ML VIAL ONE (12:42)
--- NOTE | 2022-05-01 13:22 | Post Anesthesia Assessment ---
Date of Service May 01, 2022 Post Sedation Assessment Vital Signs Temp Pulse Pulse Pulse Resp BP BP 05/02/22 08:00 60 05/02/22 07:16 36.3 C L 61 20 153/88 H 05/02/22 05:27 36.7 C 79 16 131/56 L 05/01/22 23:09 36.4 C L 62 16 151/87 H 05/01/22 22:01 76 155/97 H 05/01/22 21:08 66 20 133/89 05/01/22 20:02 36.6 C 64 22 158/92 H 05/01/22 19:11 65 151/81 H 05/01/22 18:30 64 18 157/95 H 05/01/22 18:15 62 16 145/91 H 05/01/22 18:00 66 20 136/81 05/01/22 17:45 70 18 125/80 05/01/22 17:30 62 16 149/90 H 05/01/22 17:15 64 18 156/92 H 05/01/22 17:00 66 18 142/86 H 05/01/22 16:45 68 18 145/87 H 05/01/22 16:00 62 05/01/22 16:38 70 20 144/94 H 05/01/22 16:15 71 18 179/100 H 05/01/22 16:00 68 18 134/90 05/01/22 15:45 65 16 145/93 H 05/01/22 15:30 59 L 16 149/89 H 05/01/22 15:16 36.7 C 60 20 146/91 H 05/01/22 14:54 60 16 150/103 H 05/01/22 14:41 60 16 163/103 H 05/01/22 11:58 62 20 138/97 Pulse Ox O2 Del Method 05/02/22 08:00 05/02/22 07:16 98 Room Air 05/02/22 05:27 99 05/01/22 23:09 99 Room Air 05/01/22 22:01 96 Room Air 05/01/22 21:08 98 Room Air 05/01/22 20:02 96 Room Air 05/01/22 19:11 98 Room Air 05/01/22 18:30 100 Room Air 05/01/22 18:15 99 Room Air 05/01/22 18:00 99 Room Air 05/01/22 17:45 99 Room Air 05/01/22 17:30 99 Room Air 05/01/22 17:15 100 Room Air 05/01/22 17:00 100 Room Air 05/01/22 16:45 97 Room Air 05/01/22 16:00 05/01/22 16:38 97 Room Air 05/01/22 16:15 97 Room Air 05/01/22 16:00 98 Room Air 05/01/22 15:45 97 Room Air 05/01/22 15:30 97 Room Air 05/01/22 15:16 98 Room Air 05/01/22 14:54 94 Room Air 05/01/22 14:41 97 Room Air 05/01/22 11:58 97 Room Air Recovery Score Respiration: Deep Breath/Cough Circulation: +/-20% PreAnes Value Consciousness: Fully Awake Oxygen Saturation: > 92% On Room Air Discharge Sedation Level of Care: Phase I Post Sedation Plan On clinical assessment, the patient appears to have tolerated the sedation w ithout complications. Patient is recovering as anticipated. Patient will continue to be monitored by nursing and may be discharged when sedation discharge criteria are met per below protocol. Upon Completions of procedure up to 15 minutes continue every 5 minute vital signs and the P.A.R. score; then discharge to a Phase I or Fast Track to Phase II per the following guidelines: * Discharge Patient to appropriate Phase II area if PAR is 8 or greater or return to pre- procedure baseline. The post - procedure orders will be as directed. * If PAR score is less than 8 or not return to pre-procedure baseline then patient will follow Phase I monitoring till PAR is reached for Phase II. The Phase I may be done in procedure room or may call to secure a Phase I area. * If naloxone or flumazenil are used for reversal, hold in Phase I for continued monitoring from when last reversal dose was given for a minimum of 60 minutes or longer pending the nurse and/or physician discretion of patient condition before discharge to Phase II. Please call the Sedation Physician to re-evaluate and complete post-note for discharge to Phase II area. Do NOT discharge from procedure sedation or Phase 1 until post- sedation evaluation note is complete by procedure /sedation MD Sedation Discharge Instructions to be given to the patient at discharge to home.
--- NOTE | 2022-05-01 13:39 | Cardiac Catheterization ---
Cardiac Cath Procedure Full Procedure Date May 01, 2022 Pre-Procedure Diagnosis Pre-Procedure Diagnosis: Non STEMI and Cardiothoracic Symptom (syncope) AUC Score AUC Score: 8 Post-Procedure Diagnosis Post-Procedure Diagnosis: Severe CAD and Normal Intracardiac Pressures Procedure(s) Performed Procedure(s) Performed: Coronary Angiography and Left Heart Cath Civil Preparedness Coordinator Cortez Narayan DO Survey Coordinator(s) Evaristo RTR Estimated Blood Loss Estimated Blood Loss: 5cc Medication(s) Medication(s): Fentanyl, Heparin, Lidocaine 1%, Nicardipine, Nitroglycerin and Versed Summary of Findings 70% mid LAD, 'napkin ring", bifurcation, SERG 2 distal LAD flow. Hemodynamics Rest Ao:: 123/78/122 Final Ao: 122/82/100 LV: 132/3/12 Recommendations Recommendations: PCI without planned CABG Specimens Specimens: None Radiation Exposure (mGy) 829 Contrast (mls) 60 Fluids (cc crystalloids) Fluids (cc crystalloids): 90 Nss Drains Drains: N/A Anesthesia Moderate sedation. Start 1244. End 1312. Sedation monitor: Fransico BLUE Procedural Complication(s) None Disposition Patient remained in [facility] for PCI of the LAD I attest to the content of the Intraoperative Record and any orders documented therein. Any exceptions are noted below. ACC Data: [employer] Cardiac Status Clinical evaluation leading to the procedure 56-year-old patient presented to the emergency department with syncope. Cardiac enzymes mildly elevated. No chest discomfort. ECG performed in a.m. 05/01/[address]-T wave abnormality suggesting acute injury pattern. CAD Presenation: Non STEMI Coronary Anatomy Dominant: Right Left Main (% Stenosis): Normal LAD (% Stenosis): Proximal (20-30% diffuse), Mid (70% 'napkin ring' bifurcation lesion. SERG 2 distal LAD flow) and Distal (10-20% diffuse) D1 (% Stenosis): Ostial (60% small ,2mm vessel) D2 (% Stenosis): Ostial (20%) D3 (% Stenosis): Ostial (50% associated with LAD bifucation stenosis) Circumflex (% Stenosis): Proximal (10%) RCA (% Stenosis): Proximal (10-20% diffuse), Mid (20%) and Distal (10%) R PDA (% Stenosis): Proximal (20%) R PL1 (% Stenosis): Mid (20%) R PL2 (% Stenosis): Normal Diagnostic Physicians Name: Cortez Narayan DO Closure Device Percutaneous Entry Location: Radial Closure Device: Radial Band Recommendations: PCI without planned CABG Intraprocedure Events Significant Disection: No Perforation: No
[2022-05-01] MEDS ORDERED: CLOPIDOGREL BISULFATE 300 MG TAB ONE (14:30)
--- NOTE | 2022-05-01 15:21 | Post Anesthesia Assessment ---
Date of Service May 01, 2022 Post Sedation Assessment Vital Signs Temp Pulse Pulse Pulse Resp BP BP 05/01/22 15:16 98.1 F 60 20 146/91 H 05/01/22 14:54 60 16 150/103 H 05/01/22 14:41 60 16 163/103 H 05/01/22 11:58 62 20 138/97 05/01/22 08:07 97.5 F L 57 L 20 132/85 05/01/22 07:15 62 05/01/22 03:49 97.5 F L 67 18 146/95 H 04/30/22 23:41 98.1 F 65 18 133/82 04/30/22 22:20 63 04/30/22 22:16 45 L 04/30/22 19:28 97.9 F 65 18 151/96 H 04/30/22 15:30 98.4 F 78 18 141/96 H Pulse Ox 05/01/22 15:16 98 05/01/22 14:54 94 05/01/22 14:41 97 05/01/22 11:58 97 05/01/22 08:07 99 05/01/22 07:15 05/01/22 03:49 97 04/30/22 23:41 98 04/30/22 22:20 04/30/22 22:16 04/30/22 19:28 97 04/30/22 15:30 97 Recovery Score Activity: Moves 4 extremities Respiration: Deep Breath/Cough Circulation: +/-20% PreAnes Value Consciousness: Fully Awake Oxygen Saturation: > 92% On Room Air Post Anesthesia Score: 10 Discharge Sedation Level of Care: Fast Track Phase II Post Sedation Plan On clinical assessment, the patient appears to have tolerated the sedation without complications. Patient is recovering as anticipated. Patient will continue to be monitored by nursing and may be discharged when sedation discharge criteria are met per below protocol. Upon Completions of procedure up to 15 minutes continue every 5 minute vital signs and the P.A.R. score; then discharge to a Phase I or Fast Track to Phase II per the following guidelines: * Discharge Patient to appropriate Phase II area if PAR is 8 or greater or return to pre- procedure baseline. The post - procedure orders will be as directed. * If PAR score is less than 8 or not return to pre-procedure baseline then patient will follow Phase I monitoring till PAR is reached for Phase II. The Phase I may be done in procedure room or may call to secure a Phase I area. * If naloxone or flumazenil are used for reversal, hold in Phase I for continued monitoring from when last reversal dose was given for a minimum of 60 minutes or longer pending the nurse and/or physician discretion of patient condition before discharge to Phase II. Please call the Sedation Physician to re-evaluate and complete post-note for discharge to Phase II area. Do NOT discharge from procedure sedation or Phase 1 until post- sedation evaluation note is complete by procedure /sedation MD Sedation Discharge Instructions to be given to the patient at discharge to home.
--- NOTE | 2022-05-01 15:26 | Post Operative Brief Note ---
Cardiology Brief Post Op Date of Surgery May 01, 2022 Pre & Post Diagnosis Coronary artery disease Procedure PCI of LAD Bowling Alley Operator Sherif Julian MD Gusset Edger Lesli Estimated Blood Loss 15 Findings See Below Severe mid LAD disease at bifurcation with diagonal Successful PCI of mid LAD with single ABEL (2.75 x 22 mm Derby Line; post-dilated with 3.5 NC). - Angioplasty of jailed diagonal with 2.5 balloon. Drains Other Anesthesia Type RN Sedation Complications none Disposition Disposition: PCU Overlapping Procedure I was present for: the critical portions of procedure. I was immediately available: during the entire case. Back up surgeon: was not required during procedure.
[2022-05-01] MEDS ORDERED: SODIUM CHLORIDE 0.9% 1000ML 1,000 ML IV SCH (15:30)
--- NOTE | 2022-05-01 17:11 | Cardiac Catheterization ---
[facility] Data: Immigration Paralegal Cardiac Status Clinical evaluation leading to the procedure CAD Presenation: Non STEMI Anginal Classification: CCS IV Diagnostic Physicians Name: Sherif Julian MD Closure Device Recommendations: PCI without planned CABG Cardiac Cath Procedure Full Procedure Date May 01, 2022 Pre-Procedure Diagnosis Pre-Procedure Diagnosis: Non STEMI and Cardiothoracic Symptom (syncope) AUC Score AUC Score: 8 Post-Procedure Diagnosis Post-Procedure Diagnosis: Severe CAD and Successful PCI Procedure(s) Performed Procedure(s) Performed: Coronary Angiography, Drug Eluting Stent and IVUS Plan Nurse Sherif Julian MD Special Effects Technician(s) Evaristo RTR Estimated Blood Loss Estimated Blood Loss: 15 Medication(s) Medication(s): Clopidogrel, Fentanyl, Heparin, Nicardipine, Nitroglycerin and Versed Summary of Findings Indication: NSTEMI, syncope Access: 6 Fr right radial artery Catheters: EBU 3.5 guide Findings: For full details of patient's coronary angiography please see cath report dictated by Dr. Narayan. Briefly, patient found to have severe single-vessel CAD with mid LAD disease at bifurcation of diagonal. Decision to proceed with PCI. -- PCI -- Antithrombotic therapy: Heparin, clopidogrel Procedure: Left main cannulated with EBU 3.5 guide Pre-procedure flow SERG 2-3 BMW wire passed across lesion into distal LAD Prowater wire placed into diagonal [place] IVUS catheter placed across stenosis in LAD Pullback revealed severe, mildly calcified disease at takeoff of diagonal with moderate diffuse disease extending into proximal LAD Mid LAD stented with 2.75 x 22 mm [place] drug-eluting stent across takeoff of diagonal Stent postdilated with 3.5 NC balloon IVUS pullback revealed well expanded, well apposed stent with no apparent edge complications Flow-limiting ostial stenosis of jailed diagonal noted Diagonal rewired with test pilot 50 wire Ostial/proximal diagonal dilated through stent struts with 2.5 balloon to low atmospheres IC vasodilators administered for spasm Post procedure SERG 3 flow, stent well expanded, mild jailed residual stenosis with SERG-3 branch vessel flow. No apparent cardiac complications. Arterial Closure: TR band Summary: 1. Successful PCI of mid LAD with single drug-eluting stent (2.75 x 22 mm Ahsan; postdilated with 3.5 NC). -Angioplasty of jailed diagonal ostium with 2.5 balloon 2. Residual mild to moderate diffuse earlymid LAD disease by IVUS Recommendations: To PCU for continued monitoring Loaded with 600 mg in Immigration Paralegal Continue dual-antiplatelet therapy for at least 1 year Continue statin, and ASCVD risk factor modification Consult cardiac Rehab Hemodynamics Rest Ao:: 135/87/108 Final Ao: 119/71/91 LV: 132/13 Recommendations Recommendations: PCI without planned CABG Specimens Specimens: None Radiation Exposure (mGy) 1611 Contrast (mls) 110 Drains Drains: N/A Anesthesia Moderate sedation. Start 1354. End 1431. Sedation monitor: Fransico BLUE Procedural Complication(s) None Disposition PCU I attest to the content of the Intraoperative Record and any orders documented therein. Any exceptions are noted below. [facility] Card Cath Procedure Codes Therapeutic Services & Ancillary Proc Procedure 1: Cardiovascular Tx and Anc Procedures: 65730 IV Ultrasound (Coronary or Graft) Moderate Sedation Procedure 1: Sedation/Anesthesia: 56570 Mod Sedation by the same physician; Ea [id number] Minutes Stenting Procedure 1: Cardiovascular Stent Procedures: 94565 Perc transcatheter placement of intracoronary stent(s), with ang PG Care Time/CCT Total # of Minutes Spent Total Time Spent with Patient: Total time spent is greater than 50% in coordination of care (as documented) at patient's floor/unit and/or counseling patient:
[2022-05-02 07:06] LABS: Hematocrit (blood only) 41.3 % (40.1-51.0); Hemoglobin 14.3 g/dl (14.0-18.0); Mean Corpuscular Hemoglobin 31.2 pg (25.0-34.0); Mean Corpuscular Hgb Conc 34.6 g/dL (32.0-36.0); Mean Corpuscular Volume 90.2 fL (80.0-100.0); Mean Platelet Volume 10.1 fL (9.4-12.4); Platelet Count 229 K/uL (130-400); RDW Coefficient of Variation 13.2 % (11.5-14.5); RDW Standard Deviation 43.3 fL (36.4-46.3); Red Blood Count 4.58 M/uL (4.63-6.08); White Blood Count 8.06 K/ul (4.8-10.8)
[2022-05-02 07:22] LABS: BUN Creatinine Ratio 10.1 (10-20); Calcium 8.3 mg/dl (8.5-10.1); Creatinine Clr Calc Pharmacy 106.6 ml/min; Est GFR (African American) 122.1 ml/min; Est GFR (Non-African American) 105.4 ml/min; Magnesium 1.6 mg/dl (1.7-2.4); Phosphorus 2.9 mg/dl (2.5-4.9); Potassium 4.2 mmol/L (3.5-5.1)
[2022-05-02] MEDS: amLODIPine BESYLATE 5 MG TAB PO SCH (08:00)
[2022-05-02] MEDS: lisinopril 10 MG TAB PO SCH (08:01)
[2022-05-02] MEDS: ROSUVASTATIN CALCIUM 10 MG TAB PO SCH (08:01)
[2022-05-02] MEDS ORDERED: CLOPIDOGREL BISULFATE 75 MG TAB PO SCH (09:00)
[2022-05-02] MEDS ORDERED: ASPIRIN 81 MG ECTAB PO SCH (09:00)
[2022-05-02] MEDS ORDERED: lisinopril 10 MG TAB PO ONE (09:20)
[2022-05-02] MEDS ORDERED: MAGNESIUM OXIDE 400 MG TAB PO SCH (09:30)
--- NOTE | 2022-05-02 09:44 | Cardiology Progress Note ---
Date of Service May 02, 2022 Assessment & Plan (1) Abnormal ECG: (2) HTN (hypertension): (3) Syncope: (4) Elevated troponin: (5) S/P drug eluting coronary stent placement: Plan Patient admitted after syncopal event yesterday associated with diaphoresis and elevated troponin, consistent with NSTEMI. He had transient ST/T wave changes yesterday morning suggesting myocardial strain injury and was sent for diagnostic cardiac cath. Cath revealed LAD stenosis for which he underwent single ABEL placement. He also underwent angioplasty for jailed diagonal ostium. Other diffuse mild to moderate CAD noted for which medical management recommended. Magnesium level low this morning. Supplemented. BP remains borderline elevated. Lisinopril increased to 40 mg daily Patient will require dual antiplatelet therapy for 1 year. We discussed compliance with medications upon discharge including ASA, plavix, lisinopril, amlodipine, and crestor. Beta jace not initiated due to sinus bradycardia. We discussed work restrictions post cath due to lifting restrictions. 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 Cardiac rehab recommended. Will arrange f/u in office [facility] or [place]. Case to be discussed with Dr. Narayan. Anticipate discharge later today. Admission and Anticipated Discharge Date Admission Date: May 01, 2022 Supervising Physician Co-Signing Physician Notes Patient seen examined the bedside. Drug-eluting stent implanted to the LAD yesterday without complication. Denies any chest discomfort. Telemetry reveals sinus rhythm. PE: VSS. Gen: NAD, AAO x3. Heart: Regular, normal S1-S2. No murmur. Lungs: Clear bilateral, no rales rhonchi or wheeze. Extremities: No edema. Palpable radial and femoral pulses. A/P: Agree with above PA-C history, physical exam, assessment and plan. 56-year-old patient status post successful drug-eluting stent implantation to the left anterior descending artery. Discussed importance of continuing dual antiplatelet therapy for minimum of 6 months post percutaneous intervention. Post cardiac catheterization activity restrictions reviewed. Other medications be continued as previously ordered. Cardiology follow-up in 1-2 weeks. Subjective Patient ambulating in the hallways this morning. Denies acute complaints. Radial cath site without drainage or erythema. No chest pain or SOB. BP remains borderline elevated this morning. No dizziness. He is concerned with when he can go back to work. He works for [employer] and just started on April 24. Job duties often require heavy lifting. He was lifting heavy grates yesterday when he had syncopal event. We discussed lifting restrictions due to radial cath site for the next 7-10 days. 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 He started work on April 24 and does not vacation time. Otherwise he denies complaints. He is understanding of the need for medication therapies upon discharge. Review of Systems Review of Systems: All systems reviewed & are unremarkable except as noted in HPI & below Physical Exam Constitutional: WD/WN, vitals as above well developed; no acute distress Neck: trachea midline, no thyromegaly Respiratory: normal respiratory effort, lungs clear to auscultation Cardiovascular: Rate/Rhythm: regular rate and regular rhythm Heart Sounds: normal S1 and normal S2; no murmur Extremities: no edema Gastrointestinal (Abdomen): normal bowel sounds, soft, nontender, no hepatosplenomegaly Musculoskeletal: no cyanosis or clubbing, extremities motor strength 5/5 Skin: Right radial cath site without erythema or drainage. Good pulse. Neurologic: PERRL, EOMI, accommodation nl, no face palsy, no dysarthria Results & Data ([facility]) Vital Signs (Past 12 Hours) Vital Signs Temp Pulse Pulse Pulse Resp BP Pulse Ox 05/02/22 08:00 60 05/02/22 07:16 36.3 C L 61 20 153/88 H 98 05/02/22 05:27 36.7 C 79 16 131/56 L 99 05/01/22 23:09 36.4 C L 62 16 151/87 H 99 05/01/22 22:01 76 155/97 H 96 O2 Del Method 05/02/22 08:00 05/02/22 07:16 Room Air 05/02/22 05:27 05/01/22 23:09 Room Air 05/01/22 22:01 Room Air Laboratory Results Cardiac Enzymes 05/01/22 Range/Units 11:04 Troponin I High Sens 19.4 D (0-20) pg/ml CBC 05/02/22 Range/Units 06:44 WBC 8.06 (4.8-10.8) K/ul RBC 4.58 L (4.63-6.08) M/uL Hgb 14.3 (14.0-18.0) g/dl Hct 41.3 (40.1-51.0) % Plt Count 229 (130-400) K/uL Comprehensive Metabolic Panel 05/02/22 Range/Units 06:44 Sodium 135 L (136-145) mmol/L Potassium 4.2 (3.5-5.1) mmol/L Chloride 107 (98-107) mmol/L Carbon Dioxide 24 (21-32) mmol/L BUN 7 (6-23) mg/dl Creatinine 0.69 (0.6-1.4) mg/dl Glucose 94 (70-99(Fasting)) mg/dl Calcium 8.3 L (8.5-10.1) mg/dl Intake and Output 05/01/22 05/02/22 05/02/22 22:59 06:59 14:59 Intake Total 750 / 750 Output Total 2300 / 3250 950 / 3250 Balance -1550 / -2500 -950 / -2500 Intake: IV 750 / 750 Sodium Chloride 0.9% 1000ML 1, 750 / 750 000 ml @ 100 mls/hr IV .Q10H [facility] Rx#:[id number] Output: Urine 2300 / 3250 950 / 3250 Diagnostic Findings Telemetry reviewed: NSR with PAC's in the 60-70 range. No concerning arrhythmias. Cardiac cath results: Summary: 1. Successful PCI of mid LAD with single drug-eluting stent (2.75 x 22 mm Ahsan; postdilated with 3.5 NC). -Angioplasty of jailed diagonal ostium with 2.5 balloon 2. Residual mild to moderate diffuse earlymid LAD disease by IVUS Medications Administered Current Inpatient Medications Acetaminophen (Acetaminophen 325 Mg Tab) 650 mg PO Q4H PRN PRN Reason: Pain or Fever Stop: 05/30/22 11:03 Amlodipine Besylate (Amlodipine Besylate 5 Mg Tab) 5 mg PO DAILY [facility] Stop: 05/30/22 11:29 Last Admin: 05/02/22 08:00 Dose: 5 mg Aspirin (Aspirin 81 Mg Ectab) 81 mg PO QAM [facility] Stop: 06/01/22 08:59 Last Admin: 05/02/22 08:00 Dose: 81 mg Clopidogrel Bisulfate (Clopidogrel Bisulfate 75 Mg Tab) 75 mg PO QAM [facility] Stop: 06/01/22 08:59 Last Admin: 05/02/22 08:00 Dose: 75 mg Lisinopril (Lisinopril 40 Mg Tab) 40 mg PO DAILY [facility] Stop: 06/02/22 08:59 Magnesium Oxide (Magnesium Oxide 400 Mg Tab) 400 mg PO QAM [facility] Stop: 06/01/22 09:29 Rosuvastatin Calcium (Rosuvastatin Calcium 10 Mg Tab) 10 mg PO DAILY [facility] Stop: 05/30/22 11:29 Last Admin: 05/02/22 08:01 Dose: 10 mg (1) Syncope Syncope type: unspecified Qualified Code(s): R55 - Syncope and collapse (2) HTN (hypertension) Hypertension type: unspecified Qualified Code(s): I10 - Essential (primary) hypertension
--- NOTE | 2022-05-02 11:47 | Electrocardiogram Report ---
Test Reason : Blood Pressure : / mmHG Vent. Rate : 062 BPM Atrial Rate : 062 BPM P-R Int : 098 ms QRS Dur : 084 ms QT Int : 408 ms P-R-T Axes : 062 053 -29 degrees QTc Int : 414 ms Sinus rhythm with short CO T wave abnormality, consider inferior ischemia Abnormal ECG When compared with ECG of 01-MAY-2022 11:40, No significant change was found Confirmed by Sherif Archibald ([id number]) on 05/02/2022 11:46:49 AM Referred By: REFERRED SELF Confirmed By:Jitendra Archibald
--- NOTE | 2022-05-02 13:25 | Discharge Summary ---
Date of Service May 02, 2022 Admission HPI Per Admitting Provider This is a 56 y/o male with a PMH of HTN, dyslipidemia and current tobaccco use who presented to the ED today with syncope. 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 The next thing he remembers is waking up with his co-worker who told him that he had passed out. Pt does not recall any specifics of the event. He was brought to the ED [facility]. In the ambulance, he had a slight STACY that has since resolved. He does not recall hitting his head. He is feeling at baseline at present. He denies chest pain or tightness, palpitations, SOB, N/V. He does not recall similar symptoms prior. He has a history of HTN and dyslipidemia but reports that he does not always take his medications consistently and did not take them this morning. He has noted improved in his BP as he has lost weight over the past year - both intentional and unintentional (needs dentures) - a total of 40-50 lbs lost. No prior ca rdiac work-up that he can recall. His father did have a stroke and his paternal uncle of a massive PA in his early 40s. Principal Diagnosis NSTEMI syncope Discharge Exam CONSTITUTIONAL: WNWD, vitals as above, generally well-appearing, ambulating in the hallway. EYES: pupils are round and equal bilaterally, normal conjunctivae, no scleral icterus ENT: external ear and nose normal, MMM, poor dentition. NECK: trachea midline, RESPIRATORY: clear to auscultation bilaterally, no crackles, rales or wheezes, normal respiratory effort CARDIOVASCULAR: regular rate and rhythm, S1 and 2 heard without murmurs, gallops or rubs, no JVD, no peripheral edema CHEST: inspection of chest was normal GASTROINTESTINAL: normal bowel sounds, soft, nontender, ND, no guarding MUSCULOSKELETAL: strength 5/5 throughout, head is normocephalic and atraumatic, neck supple, normal palpation of chest wall without tenderness SKIN: warm and dry, mild skin rash (appearance similar to razor burn n a freshly shaved area on right wrist around puncture site) NEUROLOGIC: CN 2-12 grossly intact, no sensory deficit, normal cognition, normal speech, no tremor PSYCHIATRIC: alert cooperative and oriented to person, place and time. Euthymic mood, makes good eye contact, language grossly intact, recent and remote memory grossly intact. Discharge Data Allergies Allergy/AdvReac Type Severity Reaction Status Date / Time Penicillins Allergy Unknown Verified 05/31/19 11:50 Consultations 04/30/22 10:08 ED Decision to Admit Stat 05/01/22 10:33 Consult Cardiology Routine 05/01/22 15:28 Consult Cardiac Rehabilitation Routine Procedures Performed Operation Date: 05/01/22 12:00 Actual Procedures p Cath, Left with Cors and Vent - Cortez Narayan, DO s Cineradiography w/Routine Exam - Cortez Narayan, DO s IVUS Coronary Single Vessel - Rashid Julian MD p Drug Eluting Stent SGl Vessel - Rashid Julian MD Ordered Studies 04/30/22 11:04 CT angio head w con Routine CT angio neck with con Routine 04/30/22 11:14 CT head/brain wo con Routine 05/01/22 12:01 CL Cath Imgs for PACS use only Urgent Hospital Course (1) Syncope: (2) Essential hypertension: (3) Dyslipidemia: (4) Current tobacco use: Plan The patient is a 56-year-old man who presented to the ER after a syncopal episode. He had presyncopal symptoms of dizziness and lightheadedness prior to losing consciousness. Denied any chest pain or shortness of breath preceding or following the event. In the ER lab work revealed no significant leukocytosis or anemia and BMP was normal aside from a low CO2 at 19. There was no seizure activity per EMS. LFTs and bilirubin were unremarkable. Troponin was negative. Lipase was unremarkable. COVID was negative. EKG revealed ST depressions and T wave inversions in the inferior leads with no old EKG to compare to. With his presentation of syncope and abnormal EKG and hypertension he was admitted to the hospital service for further work-up and monitoring. He notably had multiple cardiac risk factors including father who had a stroke and paternal uncle who of a massive heart attack in his early 40s. There was no known head trauma and a CTA of the head and neck along with a CT head was obtained to evaluate for basilar vascular brain abnormalities. This revealed no acute intracranial hemorrhage, evidence of acute territorial infarction or other intracranial disease process that was acute. There were calcifications in the left cerebellum that are likely considered to be chronic. There was no evidence of occlusion hemodynamically significant stenosis, aneurysm, dissection or arteriovenous malformation in the major intracranial arteries. There was no occlusion, hemodynamically significant stenosis, or dissection in the major cervical arteries. A chest x-ray revealed no acute cardiopulmonary disease. Cardiology was consulted and noted minimally elevated troponin on troponin trend overnight. There was no recurrent symptoms. Acute changes were seen on EKG the following morning including ST/T wave elevation in the anterior leads. Again patient was asymptomatic. Given recent events elevated troponin abnormal EKG and cardiac risk factors a diagnostic cardiac catheterization was entertained. 2D resting echocardiogram revealed no acute changes or findings. He underwent a cardiac catheterization on 05/01 with successful PCI of mid LAD with single drug- eluting stent placed. There was angioplasty performed of jailed diagonal ostium with 2.5 balloon there was residual mild to moderate diffuse early to mid LAD disease by IVUS. He was loaded with 600 mg of Plavix in the Cook Night and continued on dual antiplatelet therapy with a recommendation to continue this for at least 12 months. Statin was continued and ASCVD risk factor modification is recommended. Cardiac rehab is also recommended. Following the procedure he was monitored in the hospital overnight, and the following day was asymptomatic. He was ambulating around the hallways without issue and was mentating at his baseline. He was tolerating p.o. He was discharged in stable condition with close primary care follow-up recommended. Smoking cessation was strongly recommended. Nicotine patches were prescribed at discharge and patient was willing to try this. Was also instructed on the [facility] smoking cessation program as an option. Verbalized understanding of the importance of smoking cessation. Total Time Total Time Spent Total Time Spent (In Minutes): 60 Discharge Plan Discharge Items Patient Disposition: Home - Self-Care Reason For Visit: SYNCOPE Discharge Diagnosis: NSTEMI syncope Condition on Discharge: Good Activity: Resume your previous activity Non-emergency contact: Primary Care Provider Call non-emergency contact if: you have any medication questions, your symptoms worsen, your pain is not controlled, your pain is worsening, your pain is unusual for you, your pain is concerning for you, you have a fever, your wound has increased redness, your wound has increased drainage and your wound pain has increased Follow-up/Referrals: Cortez Narayan DO [Nipple Threader] - Evans Carmona MD [Outside Practitioners] - 05/07/22 11:00 am (Date & Time 05/07/2022 11:00 AM Provider Evans Carmona MD Department Family Practice [facility] ) Diet: Heart Healthy Addtl Attending Provider Instructions: Please take all medications as instructed on discharge list below. Please follow-up with [facility] cardiology as instructed for check up after stent placement and to initiate cardiac rehabilitation. It is recommended that you follow-up with your primary care physician within one week of discharge from the hospital to ensure you are still doing well after leaving and review any medication changes. No work for the next 5 days, and then light duty recommended for another 5 days. It was a pleasure taking care of you! Please call if you have any questions or problems. You can reach a [facility] hospitalist on duty at [facility] 24 hours a day by calling [phone]. Take care of yourself. Zohra Ladd, [facility] Hospitalist Addtl Laboratory Director Provider Instructions: ACTIVITY RECOMMENDATIONS: Excess manipulation of the wrist should be avoided for the next 24-48 hours. * No lifting over 2 pounds (approximately a 1/2 gallon of milk) with the utilized arm for 24 hours. * No strenuous activity such as bowling or tennis for 3 days. * Keep the site of the procedure covered with a bandage for 24 hours. *You may shower the day after the procedure. Do not take a tub bath or submerge the puncture site in water for the next 3 days. *Do not operate any motorized equipment for 3 days. SPECIAL CARE INSTRUCTIONS: The site may be slightly bruised and sore following your procedure. Should any of the following occur, contact the Dr. who performed your procedure. 1. Redness/inflammation, swelling, chills, or fever, or colored drainage at procedure site within 3-7 days after your procedure. 2. Coldness, discoloration, ongoing numbness, severe pain, or swelling. Expect mild tingling of hand and tenderness at the puncture site for up to three days. If this persists beyond three days, or other symptoms develop, notify the Dr. who performed your procedure. BLEEDING: If the procedure site on your wrist begins to bleed, do not panic 1. Place 1 or 2 fingers firmly just slightly above the insertion site to stop the bleeding. You may be able to feel your pulse as you hold pressure. 2. Lift your finger after 5 minutes to see if the bleeding has stopped. 3. Once the bleeding has stopped, gently wipe the wrist area clean with a bandage. * If the bleeding from your wrist does not stop after 10 minutes, or if there is a large amount of bleeding or spurting, call 911 (do not drive yourself to the hospital). SKIN IRRITATION: * You may experience some redness and/or swelling in the area where radiation was administered. If any skin irritation occurs, please contact your family physician. FOLLOW UP VISIT: Keep any scheduled doctor appointments. Pending Studies at Discharge: No Stand-Alone Forms: [facility] [employer], Work/School Release Medications and DC Order Prescriptions: New clopidogrel 75 mg Tablet 75 mg PO QAM Qty: 30 0RF lisinopril [Zestril] 40 mg Tablet 40 mg PO DAILY Qty: 30 0RF aspirin 81 mg Tablet,Delayed Release (Dr/Ec) 81 mg PO QAM Qty: 90 1RF nicotine [Nicoderm CQ] 21 mg/24 hr patch 24 hour 1 patch transdermal DAILY Qty: 14 1RF Continued amlodipine 5 mg Tablet 5 mg PO DAILY rosuvastatin 10 mg Tablet 10 mg PO DAILY Discontinued lisinopril 30 mg Tablet 30 mg PO DAILY Discharge Orders: Discharge Order (Routine); Ordered 05/02/22 Ordered By: Zohra Ladd Admission Data Admit Date/Time: 05/01/22 18:32 Attending Provider: Zohra Ladd Admit Provider: Juan R Humphries Primary Care Provider: PCP,NO Other Providers: Juan R Humphries ; Cortez Narayan Other Interventions: Discharge Summary Assessment (RN) Last Done: 05/02/22 14:05
[2022-05-03] MEDS ORDERED: lisinopril 40 MG TAB PO SCH (09:00)
== END 2022-05-02 15:01 | disposition home or self-care (01) | DRG 247 ==
LOC: ED 08:44 → 2S 08:44 → SUATTDRO 10:15 → 2S 10:48 → SUATTDRO 05-01 18:32

== ENCOUNTER 2022-06-28 08:14 | Observation (INO) ==
[2022-06-28] MEDS ORDERED: ASPIRIN CHEW 324 MG PO STA (08:39)
--- NOTE | 2022-06-28 08:44 | Emergency Department Note ---
Impression & Plan Syncope, Diaphoresis, CAD (coronary atherosclerotic disease), Lightheadedness ED Provider Note NAME: SHASTA PEREZ AGE: 57 SEX: M : 1965 ARRIVES VIA: Ambulance INFORMANT: [Patient] ED PROVIDER(S): [Viet Edwards MD] CHIEF COMPLAINT: Cardiac assessment HISTORY OF PRESENT ILLNESS: The patient is a 57-year-old male with a history of WV around 2 months ago. He had one coronary stent placed. The patient states that 2 months ago when he had his heart attack, he did not have any chest pain but had a syncopal spell and sweating. Today, the patient felt somewhat lightheaded with standing. He was sitting and apparently, had 2 brief syncopal events accompanied with diaphoresis. He did feel something across the chest but cannot explain exactly what he felt. He was mildly short of breath. There has been no recent cough or cold or congestion. The patient has been doing well since his stenting. He is followed by [facility] cardiology. REVIEW OF SYSTEMS: See HPI for pertinent positives and negatives. A total of ten systems were reviewed and were otherwise negative. PMHx/PSHx: See Below SOCIAL HISTORY: See Below. PHYSICAL EXAM: GENERAL: Patient is in no acute distress. HEENT: No acute trauma, normocephalic atraumatic, mucous membranes moist, no nasal congestion, no scleral icterus. NECK: No stridor, no adenopathy, no meningismus, trachea is midline. LUNGS: Breath sounds are somewhat diminished bilaterally with a few faint whee zes. No respiratory distress, no crackles. HEART: Without murmurs gallops or rubs, regular rate and rhythm. ABDOMEN: Soft, nontender, bowel sounds positive, no peritonitis. EXTREMITIES: No cyanosis or edema, full range of motion of all the joints without pain or difficulty, no signs for acute trauma. NEUROLOGIC: Oriented x 3, no acute motor or sensory deficits, no focal weakness. SKIN: No rash, no jaundice, no diaphoresis. DIFFERENTIAL DIAGNOSIS: Cardiac ischemia, aortic dissection, pulmonary embolism, V. tach, dysrhythmia, pneumothorax, pneumonia, pericarditis, myocarditis, esophageal rupture, GERD, cholecystitis, pancreatitis, musculoskeletal, as well as other pathologies. EMERGENCY DEPARTMENT COURSE/PROCEDURES: ECG: Indication was syncope. The ECG shows a normal sinus rhythm with a rate of 79. There are inverted T waves seen in the inferior leads. There is some T wave flattening laterally. No ST elevation. The QTc is 415. Compared to an ECG from 01 May 2022, the lateral flattened T waves are new. Continuous Cardiac Monitoring: An order was placed for continuous cardiac monitoring. The monitor shows a rate of 77 with normal sinus rhythm. MEDICAL DECISION MAKING: There is no leukocytosis or worrisome anemia. There is a normal platelet count. No coagulopathy. No renal failure or significant electrolyte abnormality. No worrisome liver enzyme elevation. Pancreatitis does not appear present based on our testing. ECG shows a normal sinus rhythm, no obvious ischemia. The patient does have some newly flattened lateral T waves of unknown significance. Cardiac enzyme testing x1 is not consistent with acute cardiac injury. COVID test returned negative. Chest x-ray did not show pneumonia or CHF. The patient presents with syncope and diaphoresis. He felt very similar with his WV just 2 months ago. He did require a coronary stent. Given the circumstances, I do think a hospital stay is warranted. Cardiac ischemia, dysrhythmia is certainly a concern. I did speak with the patient and case management. The on-call hospitalist was consulted. Past Med/Surg History Medical History Abnormal ECG CAD (coronary artery disease) Current tobacco use Current tobacco use Dyslipidemia Elevated troponin Essential hypertension HTN (hypertension) Hyperlipidemia Near syncope Syncope Surgical History History of hernia surgery S/P drug eluting coronary stent placement S/P drug eluting coronary stent placement S/P tonsillectomy Social History Smoking Status: Heavy tobacco smoker Tobacco Type: Cigarettes Cigarettes Per Day: 2 PPD since late teens; Do You Dip or Chew Tobacco: No; Hx Alcohol Use: Yes Alcohol type: beer and wine Hx Substance Use: No Preferred Language: Anguillan Communication Ability: Effective Irrigation Manager Required: No Beliefs That Will Affect Care: None marital status: Current Living Situation: Spouse current occupational status: employed current occupation: works for [employer] Feels Safe at Home: Yes Assistive Devices: None Allergies Allergies Allergy/AdvReac Type Severity Reaction Status Date / Time Penicillins Allergy Unknown Verified 05/31/19 11:50 Home Meds Home Medications Medication Instructions Recorded Confirmed amlodipine 5 mg tablet 5 mg PO DAILY 05/31/19 06/28/22 rosuvastatin 10 mg tablet 10 mg PO DAILY 05/31/19 06/28/22 Previous Rx's Medication Instructions Recorded aspirin 81 mg tablet,delayed 81 mg PO QAM #90 tabs 05/02/22 release clopidogrel 75 mg tablet 75 mg PO QAM #30 tabs 05/02/22 lisinopril 40 mg tablet (Zestril) 40 mg PO DAILY #30 tabs 05/02/22 nicotine 21 mg/24 hr daily 1 patch transdermal DAILY #14 ea 05/02/22 transdermal patch (Nicoderm CQ) Results & Data (ED) Vital Signs Vital Signs - 24 hr 06/28/22 08:23 06/28/22 08:23 06/28/22 08:25 Temperature 36.8 C Temperature Source Oral Pulse Rate 83 74 Pulse Rate from SpO2 Sensor Pulse Rhythm Regular Pulse Strength Normal Respiratory Rate 18 22 Respiratory Effort / Characteristics Non-Labored Respiratory Depth Normal Respiratory Pattern Regular Blood Pressure 111/80 Blood Pressure Mean 90 Blood Pressure Position Sitting Pulse Oximetry 98 98 99 Oxygen Delivery Method Room Air Room Air Room Air Sepsis Recent Fever Within 48 Hours No Sepsis New/Unexplained Change in Mental Status No Sepsis Action Taken by Nursing No Action Required 06/28/22 08:30 06/28/22 08:30 06/28/22 08:42 Temperature Temperature Source Pulse Rate 77 77 Pulse Rate from SpO2 Sensor Pulse Rhythm Regular Pulse Strength Respiratory Rate 23 19 Respiratory Effort / Characteristics Respiratory Depth Respiratory Pattern Blood Pressure 123/84 Blood Pressure Mean 97 Blood Pressure Position Pulse Oximetry 98 98 Oxygen Delivery Method Room Air Room Air Sepsis Recent Fever Within 48 Hours Sepsis New/Unexplained Change in Mental Status Sepsis Action Taken by Nursing 06/28/22 08:40 06/28/22 08:45 06/28/22 08:45 Temperature Temperature Source Pulse Rate 76 73 Pulse Rate from SpO2 Sensor Pulse Rhythm Pulse Strength Respiratory Rate 16 17 Respiratory Effort / Characteristics Respiratory Depth Respiratory Pattern Blood Pressure 120/82 Blood Pressure Mean 94 Blood Pressure Position Pulse Oximetry 93 Oxygen Delivery Method Room Air Sepsis Recent Fever Within 48 Hours Sepsis New/Unexplained Change in Mental Status Sepsis Action Taken by Nursing 06/28/22 08:50 06/28/22 09:00 06/28/22 09:00 Temperature Temperature Source Pulse Rate 86 88 Pulse Rate from SpO2 Sensor Pulse Rhythm Pulse Strength Respiratory Rate 17 19 Respiratory Effort / Characteristics Respiratory Depth Respiratory Pattern Blood Pressure 104/78 Blood Pressure Mean 86 Blood Pressure Position Pulse Oximetry Oxygen Delivery Method Sepsis Recent Fever Within 48 Hours Sepsis New/Unexplained Change in Mental Status Sepsis Action Taken by Nursing 06/28/22 09:10 06/28/22 09:15 06/28/22 09:15 Temperature Temperature Source Pulse Rate 78 85 Pulse Rate from SpO2 Sensor Pulse Rhythm Pulse Strength Respiratory Rate 22 22 Respiratory Effort / Characteristics Respiratory Depth Respiratory Pattern Blood Pressure 124/83 Blood Pressure Mean 96 Blood Pressure Position Pulse Oximetry 98 92 Oxygen Delivery Method Room Air Room Air Sepsis Recent Fever Within 48 Hours Sepsis New/Unexplained Change in Mental Status Sepsis Action Taken by Nursing 06/28/22 09:20 06/28/22 09:30 06/28/22 09:30 Temperature Temperature Source Pulse Rate 78 75 Pulse Rate from SpO2 Sensor Pulse Rhythm Pulse Strength Respiratory Rate 18 20 Respiratory Effort / Characteristics Respiratory Depth Respiratory Pattern Blood Pressure 141/92 H Blood Pressure Mean 108 Blood Pressure Position Pulse Oximetry 100 98 Oxygen Delivery Method Room Air Room Air Sepsis Recent Fever Within 48 Hours Sepsis New/Unexplained Change in Mental Status Sepsis Action Taken by Nursing 06/28/22 09:40 06/28/22 09:45 06/28/22 09:45 Temperature Temperature Source Pulse Rate 70 69 Pulse Rate from SpO2 Sensor Pulse Rhythm Pulse Strength Respiratory Rate 22 22 Respiratory Effort / Characteristics Respiratory Depth Respiratory Pattern Blood Pressure 126/87 Blood Pressure Mean 100 Blood Pressure Position Pulse Oximetry 100 98 Oxygen Delivery Method Room Air Room Air Sepsis Recent Fever Within 48 Hours Sepsis New/Unexplained Change in Mental Status Sepsis Action Taken by Nursing 06/28/22 09:50 06/28/22 10:00 06/28/22 10:00 Temperature Temperature Source Pulse Rate 67 66 Pulse Rate from SpO2 Sensor 65 Pulse Rhythm Pulse Strength Respiratory Rate 18 18 Respiratory Effort / Characteristics Respiratory Depth Respiratory Pattern Blood Pressure 114/77 Blood Pressure Mean 89 Blood Pressure Position Pulse Oximetry 99 98 Oxygen Delivery Method Room Air Sepsis Recent Fever Within 48 Hours Sepsis New/Unexplained Change in Mental Status Sepsis Action Taken by Nursing 06/28/22 10:10 Temperature Temperature Source Pulse Rate 78 Pulse Rate from SpO2 Sensor 81 Pulse Rhythm Pulse Strength Respiratory Rate 18 Respiratory Effort / Characteristics Respiratory Depth Respiratory Pattern Blood Pressure Blood Pressure Mean Blood Pressure Position Pulse Oximetry 100 Oxygen Delivery Method Sepsis Recent Fever Within 48 Hours Sepsis New/Unexplained Change in Mental Status Sepsis Action Taken by Skilled Nursing Medications Current Medication List: was personally reviewed by me Laboratory Data Attestation: I reviewed the patient's lab results. Result diagrams: 06/28/22 08:25 06/28/22 08:25 Lab Results 06/28/22 06/28/22 06/28/22 Range/Units 08:25 08:25 08:25 WBC 9.67 (4.8-10.8) K/ul RBC 4.74 (4.63-6.08) M/uL Hgb 15.1 (14.0-18.0) g/dl Hct 43.2 (40.1-51.0) % MCV 91.1 (80.0-100.0) fL MCH 31.9 (25.0-34.0) pg MCHC 35.0 (32.0-36.0) g/dL RDW Std Deviation 43.8 (36.4-46.3) fL RDW Coeff of Bar 13.1 (11.5-14.5) % Plt Count 303 (130-400) K/uL MPV 9.9 (9.4-12.4) fL Immature Gran % (Auto) 0.4 % Neut % (Auto) 68.7 % Lymph % (Auto) 22.9 % Sabine % (Auto) 6.8 % Eos % (Auto) 0.9 % Baso % (Auto) 0.3 % Neut # (Auto) 6.64 H (1.4-6.5) K/uL Lymph # (Auto) 2.21 (1.2-3.4) K/uL Sabine # (Auto) 0.66 (0.24-0.82) K/uL Eos # (Auto) 0.09 (0-0.50) K/uL Baso # (Auto) 0.03 (0-0.2) K/uL Immature Gran # (Auto) 0.04 H (0.00-0.02) K/uL PT 10.2 (9.0-12.0) Seconds INR 1.0 (0.9-1.1) APTT 25.4 (21.0-31.0) Seconds PTT Ratio 0.9 Sodium 135 L (136-145) mmol/L Potassium 4.0 (3.5-5.1) mmol/L Chloride 106 (98-107) mmol/L Carbon Dioxide 22 (21-32) mmol/L Anion Gap 7 (3-11) BUN 12 (6-23) mg/dl Creatinine 0.77 (0.6-1.4) mg/dl Est Cr Clr Drug Dosing 94.4 ml/min Est GFR ( Amer) 115.9 ml/min Est GFR (Non-Af Amer) 100.0 ml/min BUN/Creatinine Ratio 15.6 (10-20) Glucose 139 H (70-99(Fasting)) mg/dl Calcium 8.8 (8.5-10.1) mg/dl Magnesium 1.7 (1.7-2.4) mg/dl Total Bilirubin 0.6 (0.2-1.0) mg/dl AST 18 (13-39) U/L ALT 12 (7-52) U/L Alkaline Phosphatase 57 (34-104) U/L Troponin I High Sens 5.3 D (0-20) pg/ml Total Protein 6.8 (6.0-8.3) gm/dl Albumin 4.1 (3.4-5.0) gm/dl Globulin 2.7 (2.5-4.0) gm/dl Albumin/Globulin Ratio 1.5 (0.9-2) Lipase 50 (11-82) U/L SARS-CoV-2, RNA, NAAT (NEGATIVE) 06/28/22 Range/Units 08:45 WBC (4.8-10.8) K/ul RBC (4.63-6.08) M/uL Hgb (14.0-18.0) g/dl Hct (40.1-51.0) % MCV (80.0-100.0) fL MCH (25.0-34.0) pg MCHC (32.0-36.0) g/dL RDW Std Deviation (36.4-46.3) fL RDW Coeff of Bar (11.5-14.5) % Plt Count (130-400) K/uL MPV (9.4-12.4) fL Immature Gran % (Auto) % Neut % (Auto) % Lymph % (Auto) % Sabine % (Auto) % Eos % (Auto) % Baso % (Auto) % Neut # (Auto) (1.4-6.5) K/uL Lymph # (Auto) (1.2-3.4) K/uL Sabine # (Auto) (0.24-0.82) K/uL Eos # (Auto) (0-0.50) K/uL Baso # (Auto) (0-0.2) K/uL Immature Gran # (Auto) (0.00-0.02) K/uL PT (9.0-12.0) Seconds INR (0.9-1.1) APTT (21.0-31.0) Seconds PTT Ratio Sodium (136-145) mmol/L Potassium (3.5-5.1) mmol/L Chloride (98-107) mmol/L Carbon Dioxide (21-32) mmol/L Anion Gap (3-11) BUN (6-23) mg/dl Creatinine (0.6-1.4) mg/dl Est Cr Clr Drug Dosing ml/min Est GFR ( Amer) ml/min Est GFR (Non-Af Amer) ml/min BUN/Creatinine Ratio (10-20) Glucose (70-99(Fasting)) mg/dl Calcium (8.5-10.1) mg/dl Magnesium (1.7-2.4) mg/dl Total Bilirubin (0.2-1.0) mg/dl AST (13-39) U/L ALT (7-52) U/L Alkaline Phosphatase (34-104) U/L Troponin I High Sens (0-20) pg/ml Total Protein (6.0-8.3) gm/dl Albumin (3.4-5.0) gm/dl Globulin (2.5-4.0) gm/dl Albumin/Globulin Ratio (0.9-2) Lipase (11-82) U/L SARS-CoV-2, RNA, NAAT NEGATIVE (NEGATIVE) Administered Medications Magnesium Sulfate/Dextrose (Magnesium Sulfate / D5w) 1 gm in 100 mls @ 50 mls/hr IV Q2H LILA Stop: 06/28/22 17:44 Last Admin: 06/28/22 14:09 Dose: 50 mls/hr Documented By: SM Discontinued Medications Aspirin (Aspirin Chew 324 Mg) 324 mg PO NOW STA Stop: 06/28/22 08:40 Last Admin: 06/28/22 08:46 Dose: 324 mg Documented By: Imaging Data Radiologist's Impression: Chest X-Ray 06/28/22 08:39 XR chest 1V portable CLINICAL HISTORY: Atypical chest pain. COMPARISON STUDY: Chest radiograph April 30, 2022. FINDINGS: Possible mild lung hyperexpansion. Lungs are clear. There is no pneumothorax or pleural effusion. Cardiac size is normal. Mediastinal contours are normal. Subtle interstitial thickening is unchanged since prior exam. IMPRESSION: No acute cardiopulmonary findings. No change in appearance of the chest. ACT 112: Negative or not required by law. Electronically signed by: Ben Baron M.D. 06/28/2022 9:08 AM Discharge Plan Visit Data Chief Complaint: Cardiac Assessment Stated Complaint: SYNCOPE ED Provider: Viet Edwards Discharge Problem: Syncope, Diaphoresis, CAD (coronary atherosclerotic disease), Lightheadedness Patient Disposition: Admitted As Inpatient Condition: Good Discharge Instructions Interventions: ED Discharge Assessment Last Done: 06/28/22 13:11
[2022-06-28 08:55] LABS: Basophils # (auto) 0.03 K/uL (0-0.2); Basophils % (auto) 0.3 %; Eosinophils # (auto) 0.09 K/uL (0-0.50); Eosinophils % (auto) 0.9 %; Hematocrit (blood only) 43.2 % (40.1-51.0); Hemoglobin 15.1 g/dl (14.0-18.0); Immature Granulocytes # (auto) 0.04 K/uL (0.00-0.02); Immature Granulocytes % (auto) 0.4 %; Lymphocytes # (auto) 2.21 K/uL (1.2-3.4); Lymphocytes % (auto) 22.9 %; Mean Corpuscular Hemoglobin 31.9 pg (25.0-34.0); Mean Corpuscular Volume 91.1 fL (80.0-100.0); Mean Platelet Volume 9.9 fL (9.4-12.4); Monocytes # (auto) 0.66 K/uL (0.24-0.82); Monocytes % (auto) 6.8 %; Neutrophils # (auto) 6.64 K/uL (1.4-6.5); Neutrophils % (auto) 68.7 %; Platelet Count 303 K/uL (130-400); RDW Coefficient of Variation 13.1 % (11.5-14.5); RDW Standard Deviation 43.8 fL (36.4-46.3); Red Blood Count 4.74 M/uL (4.63-6.08); White Blood Count 9.67 K/ul (4.8-10.8)
[2022-06-28 09:07] LABS: Partial Thromboplastin Ratio 0.9; Partial Thromboplastin Time 25.4 Seconds (21.0-31.0); Prothrombin Time 10.2 Seconds (9.0-12.0)
--- NOTE | 2022-06-28 09:10 | XRay Report ---
XR chest 1V portable CLINICAL HISTORY: Atypical chest pain. COMPARISON STUDY: Chest radiograph April 30, 2022. FINDINGS: Possible mild lung hyperexpansion. Lungs are clear. There is no pneumothorax or pleural eff usion. Cardiac size is normal. Mediastinal contours are normal. Subtle interstitial thickening is unc hanged since prior exam. IMPRESSION: No acute cardiopulmonary findings. No change in appearance of the chest. ACT 112: Negative or not required by law. Electronically signed by: Ben Baron M.D. 06/28/2022 9:08 AM
[2022-06-28 09:26] LABS: Albumin Globulin Ratio 1.5 (0.9-2); Albumin Level 4.1 gm/dl (3.4-5.0); BUN Creatinine Ratio 15.6 (10-20); Bilirubin,Total 0.6 mg/dl (0.2-1.0); Calcium 8.8 mg/dl (8.5-10.1); Creatinine Clr Calc Pharmacy 94.4 ml/min; Est GFR (African American) 115.9 ml/min; Globulin 2.7 gm/dl (2.5-4.0); Magnesium 1.7 mg/dl (1.7-2.4); Total Protein 6.8 gm/dl (6.0-8.3)
[2022-06-28 09:30] LABS: Troponin I High Sensitivity 5.3 pg/ml (0-20)
--- NOTE | 2022-06-28 10:01 | History & Physical Report ---
Date of Service June 28, 2022 Assessment & Plan (1) CAD (coronary artery disease): (2) S/P drug eluting coronary stent placement: (3) Near syncope: (4) Hyperlipidemia: (5) Current tobacco use: Plan Mr. Silvestre San is a 57 y/o who was a recent PCI s/p ABEL x1 to the LAD on J 2021. He is now presenting with similar symptoms as previously: Lighteheadedness at work, diaphoresis, near syncope as reported by his colleagues. Hemodynamically stable, labs ok, trending Trops, EKG with some flat T wave and some inversion but no overt signs of STEMI. He reports being compliant with his meds, but continues to smoke 1 PPD. He has been attending cards f/u with Dr. Schmitt, last appt 06/01. I have him NPO for now and trending trops with some ortho BPs. CAD s/p drug eluting coronary stent placement Near Syncope: -05/01/22: 70% LAD occlusion; single ABEL placement. He also underwent angioplasty for jailed diagonal ostium. -Follows with Cardiology; treatment includes dual-antiplt therapy x1 year with Plavix and ASA. Last Cardiology f/u: 06/01/22 -Flat T wave on EKG. Check in AM -Last ECHO: 04/30/22 EF 60-65%; order new ECHO -Trend Troponin: initial 5.4 -Ortho BPs ordered -NPO for now -Cardiology consult placed. Essential HTN: -Hemodynamically stable: continue Amlodipine and Lisinopril -Lisinopril was increased from 30mg to 40 mg last admission HLD: -Continue Rosuvastatin -Check lipid panel in AM Current Tobacco Use: -Currently smoking 1 PPD; Recommend smoking cessation program -Continue Nicotine Patch Disposition: -PCP: Dr. Carmona -Code Status: Full -VTE Prophylaxis: SCDs -Goal to return home at [place] History of Present Illness Chief Complaint: lightheadedness Primary Care Provider: Evans Carmona MD Mr. San presented to the [facility] ED as he was experiencing lightheadedness while he was at work. His coworker stated that his eyes rolled back into his head and was not responsive for a few seconds. He was admitted in April with similar symptoms and was evaluated by Cardiology and underwent a PCI and was found to have 70% LAD occlusion s/p ABEL placed x 1. ECHO at that time was EF 60- 65%. Pt is currently smoking 1 pack of cigarettes daily. CXR performed and krissy clements. Flat T wave present on EKG today. Additional PMH includes: hyperlipidemia, tobacco use and essential HTN. Pt denies fevers, cough, sore throat, dizziness, STACY, CP, palpitations, abdominal pain, N/V/D. Patient will be admitted for further evaluation and medical management. Please see A/P for further details. Allergies Allergy/AdvReac Type Severity Reaction Status Date / Time Penicillins Allergy Unknown Verified 05/31/19 11:50 Home Medications Medication Instructions Recorded Confirmed Type amlodipine 5 mg tablet 5 mg PO DAILY 05/31/19 06/28/22 History rosuvastatin 10 mg tablet 10 mg PO DAILY 05/31/19 06/28/22 History aspirin 81 mg tablet,delayed 81 mg PO QAM #90 tabs 05/02/22 06/28/22 Rx release clopidogrel 75 mg tablet 75 mg PO QAM #30 tabs 05/02/22 06/28/22 Rx lisinopril 40 mg tablet (Zestril) 40 mg PO DAILY #30 tabs 05/02/22 06/28/22 Rx nicotine 21 mg/24 hr daily 1 patch transdermal DAILY #14 ea 05/02/22 06/28/22 Rx transdermal patch (Nicoderm CQ) Past Med/Surg History Medical History Abnormal ECG CAD (coronary artery disease) Current tobacco use Current tobacco use Dyslipidemia Elevated troponin Essential hypertension HTN (hypertension) Hyperlipidemia Near syncope Syncope Surgical History History of hernia surgery S/P drug eluting coronary stent placement S/P drug eluting coronary stent placement S/P tonsillectomy Social History Smoking Status: Heavy tobacco smoker Tobacco Type: Cigarettes Cigarettes Per Day: 2 PPD since late teens; Do You Dip or Chew Tobacco: No; Hx Alcohol Use: Yes Alcohol type: beer and wine Hx Substance Use: No Preferred Language: Khmer Communication Ability: Effective Babbitter Required: No Beliefs That Will Affect Care: None marital status: Current Living Situation: Spouse current occupational status: employed current occupation: works for [employer] Feels Safe at Home: Yes Assistive Devices: None Review of Systems Review of Systems: Neuro: (-) Falls, trauma, slurred speech HEENT: (-) STACY, dizziness, dysphagia, visual or auditory changes CV: (-) CP, palpitations, swelling (+) substernal burning Resp: (-) SOB GI: (-) appetite changes, N/V/D, bowel changes : (-) urinary changes Skin: (-) rashes Psych: (-) anxiety, depression Physical Exam Physical Exam: Physical exam as documented by Dr. Schultz Results & Data Results & Data ([facility]) Vital Signs (Past 12 Hours) Vital Signs Temp Pulse Resp BP Pulse Ox O2 Del Method 06/28/22 08:42 77 19 98 Room Air 06/28/22 08:30 77 23 98 Room Air 06/28/22 08:30 123/84 06/28/22 08:25 74 22 99 Room Air 06/28/22 08:23 36.8 C 83 18 111/80 98 Room Air 06/28/22 08:23 98 Room Air Laboratory Results Short CBC 06/28/22 Range/Units 08:25 WBC 9.67 (4.8-10.8) K/ul Hgb 15.1 (14.0-18.0) g/dl Hct 43.2 (40.1-51.0) % Plt Count 303 (130-400) K/uL BMP 06/28/22 08:25 Sodium 135 L Potassium 4.0 Chloride 106 Carbon Dioxide 22 BUN 12 Creatinine 0.77 Glucose 139 H Calcium 8.8 Liver Function 06/28/22 Range/Units 08:25 Total Bilirubin 0.6 (0.2-1.0) mg/dl AST 18 (13-39) U/L ALT 12 (7-52) U/L Alkaline Phosphatase 57 (34-104) U/L Albumin 4.1 (3.4-5.0) gm/dl Diagnostic Findings Chest X-Ray 06/28/22 08:39 XR chest 1V portable CLINICAL HISTORY: Atypical chest pain. COMPARISON STUDY: Chest radiograph April 30, 2022. FINDINGS: Possible mild lung hyperexpansion. Lungs are clear. There is no pneumothorax or pleural effusion. Cardiac size is normal. Mediastinal contours are normal. Subtle interstitial thickening is unchanged since prior exam. IMPRESSION: No acute cardiopulmonary findings. No change in appearance of the chest. ACT 112: Negative or not required by law. Electronically signed by: Ben Baron M.D. 06/28/2022 9:08 AM Code Status & VTE Plan Code Status Full code in the event of cardiac or respiratory arrest VTE Prophylaxis Plan VTE Prophylaxis will be ordered: Yes Supervising Physician Co-Signing Physician Notes 57-year-old male with PMH of recent syncopal episode in April 2022, likely cardiac and status post ABEL of mid LAD; current tobacco abuse [4 packs a day, cut down to 1 pack a day since April 2022, smoking since 42 years]; alcohol use [drinks 1-2 glasses of wine with dinner]; HTN, HLD presented to our ED 06/28 from work with concerns of syncopal episode which he likens to prior syncopal episode in April 2022 when he was found to have severe one-vessel CAD and underwent stenting of mid LAD. Patient reports that he was resting his head and shutting his eyes but his coworkers told him that he rolled his eyes backward and was unresponsive for few seconds and was sweating heavily. This happened twice at work and once in route to emergency per patient. No further episodes in the emergency. Patient denies any chest pain or palpitation. Patient denies any fever/sore throat/myalgias/changes in bowel or bladder habits/belly pain/other review of symptoms. Of note, patient does report on and off chest pain with exertion ongoing for several months [patient has to stop to catch breath and the chest pain would go away] which has decreased in frequency after he received a stent in April 2022. Patient reports father with a stroke in his 40s and uncle dying of massive heart attack in his 40s. Mother with lung cancer and grandmother with breast cancer. Admitting labs reviewed, troponin WNL, EKG with T wave inversion in inferior leads. April echo with ejection fraction of 60 to 65%. April cath with PCI of mid LAD. Magnesium 1.7, replete with a goal of magnesium above 2.0. Admitting imagings reviewed. Trend troponins, cardiology consult, orthostatic vitals, EKG as needed for chest pain, EKG in a.m., lipid panel in AM. N.p.o. until cardiology evaluation. Patient has not eaten his meals in the morning. Upon examination: GENERAL: Alert and oriented x3. NAD, on RA. HEENT: No pallor, no icterus. Pupils equal, round and reactive to light. Oral mucosa moist. NECK: No JVD, no neck masses. HEART: S1 and S2 heard. Regular rate and rhythm. No murmur, no gallop. RESPIRATORY SYSTEM: Normal AP diameter. No accessory muscle use. No wheezing, no crackles. ABDOMEN: Soft, bowel sounds present, nontender, no distention. CENTRAL NERVOUS SYSTEM: No facial droop. Speech is clear. Obeys simple commands. Moves extremities. EXTREMITIES: No edema, no erythema seen. I have seen and examined the patient and have discussed the case with the provider above. I agree with the assessment and plan as stated.
--- NOTE | 2022-06-28 12:12 | Cardiology Consultation ---
Date of Consultation June 28, 2022 Assessment & Plan (1) Syncope: (2) S/P drug eluting coronary stent placement: Plan The patient has had 2 syncopal events. He had a coronary stent placed in the LAD after the first event and had been doing well. Today he has had his second syncopal event both were not related with chest pain or shortness of breath or other indications of angina. I think we have to be careful and exclude cardiac arrhythmias. Patient should be admitted and be placed on a telemetry unit. His admitting EKG is unchanged from previous with T wave inversions in the inferior leads noted. First set of cardiac markers was negative. The patient should have orthostatic blood pressure checks. History of Present Illness History of Present Illness This is a 57-year-old male patient who works for the [employer] and at the end of April while at work he felt a little queasy, dizzy and became diaphoretic. He sat down and had a syncopal episode. He was brought to the hospital where he was admitted. The patient had an elevation in his high- sensitivity troponins which led to heart catheterization. He was found to have a 70% stenosis of the LAD and received a drug-eluting stent. The patient recovered and returned to work. He has been doing well without activity related chest pain or progressive shortness of breath. He has had no heart palpitations or tachycardia. No dizziness or lightheadedness. The patient was once again at work. 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 He became queasy and lightheaded. He then began to sweat. According to his coworkers he passed out for several seconds and then spontaneously recovered. There was no myoclonic jerking motions. Patient had no paralysis or paresthesias. No loss of bowel or bladder. After this syncopal event the patient remembers being very diaphoretic. He was brought to the emergency department. His EKG is unchanged with T wave inversions in the inferior leads which may be a normal variant. His first set of high-sensitivity troponins are negative. Others are pending. He denies any current symptoms. He is currently in a sinus rhythm on the telemetry. Allergies Allergy/AdvReac Type Severity Reaction Status Date / Time Penicillins Allergy Unknown Verified 05/31/19 11:50 Home Medications Medication Instructions Recorded Confirmed Type amlodipine 5 mg tablet 5 mg PO DAILY 05/31/19 06/28/22 History rosuvastatin 10 mg tablet 10 mg PO DAILY 05/31/19 06/28/22 History aspirin 81 mg tablet,delayed 81 mg PO QAM #90 tabs 05/02/22 06/28/22 Rx release clopidogrel 75 mg tablet 75 mg PO QAM #30 tabs 05/02/22 06/28/22 Rx lisinopril 40 mg tablet (Zestril) 40 mg PO DAILY #30 tabs 05/02/22 06/28/22 Rx nicotine 21 mg/24 hr daily 1 patch transdermal DAILY #14 ea 05/02/22 06/28/22 Rx transdermal patch (Nicoderm CQ) Patient History Medical History Abnormal ECG CAD (coronary artery disease) Current tobacco use Current tobacco use Dyslipidemia Elevated troponin Essential hypertension HTN (hypertension) Hyperlipidemia Near syncope Syncope Surgical History History of hernia surgery S/P drug eluting coronary stent placement S/P drug eluting coronary stent placement S/P tonsillectomy Social History Smoking Status: Current every day smoker Tobacco Type: Cigarettes Cigarettes Per Day: 2 PPD since late teens; Hx Alcohol Use: Yes (Occasional depending on social setting - does not consume daily) Alcohol type: beer and wine Hx Substance Use: No Preferred Language: Kinyarwanda Communication Ability: Effective 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 All other 10 point review of systems are negative. Physical Exam Physical Exam: General: no acute distress and stated age Head: normocephalic, no masses, lesions, tenderness or abnormalities Eyes: conjunctiva are pink and non-injected, sclera clear Neck: supple, no adenopathy, no bruits, normal jugular venous pulse, no hepatojugular reflux Chest: normal shape and normal respiratory effort Lungs: clear to auscultation and percussion Cardiac Exam: - regular rate & rhythm, no murmurs gallops or rubs - normal S1, normal S2 Pulses: 2(+) throughout Abdomen: abdomen soft, non-tender, no abnormal masses and no hepatosplenomegaly Musculoskeletal: no gait disturbance, no joint inflammation, no deforming arthritis Extremities: no edema and no cyanosis Neuro: grossly normal exam Results & Data ([facility]) Vital Signs (Past 12 Hours) Vital Signs Temp Pulse Resp BP Pulse Ox O2 Del Method 06/28/22 09:50 67 18 99 Room Air 06/28/22 09:45 69 22 98 Room Air 06/28/22 09:45 126/87 06/28/22 09:40 70 22 100 Room Air 06/28/22 09:30 75 20 98 Room Air 06/28/22 09:30 141/92 H 06/28/22 09:20 78 18 100 Room Air 06/28/22 09:15 124/83 06/28/22 09:15 85 22 92 Room Air 06/28/22 09:10 78 22 98 Room Air 06/28/22 09:00 88 19 06/28/22 09:00 104/78 06/28/22 08:50 86 17 06/28/22 08:45 120/82 06/28/22 08:45 73 17 93 Room Air 06/28/22 08:40 76 16 06/28/22 08:42 77 19 98 Room Air 06/28/22 08:30 77 23 98 Room Air 06/28/22 08:30 123/84 06/28/22 08:25 74 22 99 Room Air 06/28/22 08:23 36.8 C 83 18 111/80 98 Room Air 06/28/22 08:23 98 Room Air Laboratory Results Laboratory Results - last 24 hr 06/28/22 06/28/22 06/28/22 08:25 08:25 08:25 WBC 9.67 RBC 4.74 Hgb 15.1 Hct 43.2 MCV 91.1 MCH 31.9 MCHC 35.0 RDW Std Deviation 43.8 RDW Coeff of Bar 13.1 Plt Count 303 MPV 9.9 Immature Gran % (Auto) 0.4 Neut % (Auto) 68.7 Lymph % (Auto) 22.9 Grayson % (Auto) 6.8 Eos % (Auto) 0.9 Baso % (Auto) 0.3 Neut # (Auto) 6.64 H Lymph # (Auto) 2.21 Grayson # (Auto) 0.66 Eos # (Auto) 0.09 Baso # (Auto) 0.03 Immature Gran # (Auto) 0.04 H PT 10.2 INR 1.0 APTT 25.4 PTT Ratio 0.9 Sodium 135 L Potassium 4.0 Chloride 106 Carbon Dioxide 22 Anion Gap 7 BUN 12 Creatinine 0.77 Est Cr Clr Drug Dosing 94.4 Est GFR ( Amer) 115.9 Est GFR (Non-Af Amer) 100.0 BUN/Creatinine Ratio 15.6 Glucose 139 H Calcium 8.8 Magnesium 1.7 Total Bilirubin 0.6 AST 18 ALT 12 Alkaline Phosphatase 57 Troponin I High Sens 5.3 D Total Protein 6.8 Albumin 4.1 Globulin 2.7 Albumin/Globulin Ratio 1.5 Lipase 50 SARS-CoV-2, RNA, NAAT 06/28/22 06/28/22 08:45 11:18 WBC RBC Hgb Hct MCV MCH MCHC RDW Std Deviation RDW Coeff of Bar Plt Count MPV Immature Gran % (Auto) Neut % (Auto) Lymph % (Auto) Grayson % (Auto) Eos % (Auto) Baso % (Auto) Neut # (Auto) Lymph # (Auto) Grayson # (Auto) Eos # (Auto) Baso # (Auto) Immature Gran # (Auto) PT INR APTT PTT Ratio Sodium Potassium Chloride Carbon Dioxide Anion Gap BUN Creatinine Est Cr Clr Drug Dosing Est GFR ( Amer) Est GFR (Non-Af Amer) BUN/Creatinine Ratio Glucose Calcium Magnesium Total Bilirubin AST ALT Alkaline Phosphatase Troponin I High Sens Pending Total Protein Albumin Globulin Albumin/Globulin Ratio Lipase SARS-CoV-2, RNA, NAAT NEGATIVE
--- NOTE | 2022-06-28 13:55 | XRay Report ---
SINGLE VIEW CHEST CLINICAL HISTORY: Lightheadedness. FINDINGS: An AP, portable, upright chest radiograph is compared to study dated 06/28/2022. The cardiome diastinal silhouette is unremarkable. Emphysema and chronic interstitial thickening is similar to pre vious. There is mild bibasilar scarring/atelectasis. No airspace consolidation or large pleural effus ion is identified. No pneumothorax is seen. The bony thorax is grossly intact. IMPRESSION: Emphysematous change with no active disease in the chest. ACT 112: Negative or not required by law. Electronically signed by: Viet Craig M.D. 06/28/2022 1:53 PM
[2022-06-28] MEDS: MAGNESIUM SULFATE / D5W 1 GM/100 ML BAG IV SCH ×2 (14:09→16:20)
--- NOTE | 2022-06-28 16:51 | Electrocardiogram Report ---
Test Reason : Blood Pressure : / mmHG Vent. Rate : 079 BPM Atrial Rate : 079 BPM P-R Int : 146 ms QRS Dur : 086 ms QT Int : 362 ms P-R-T Axes : 069 051 -20 degrees QTc Int : 415 ms Normal sinus rhythm T wave abnormality, consider inferior ischemia Abnormal ECG When compared with ECG of 01-MAY-2022 14:32, GA interval has increased Nonspecific T wave abnormality now evident in Lateral leads Confirmed by Sherif Archibald ([id number]) on 06/28/2022 4:51:09 PM Referred By: REFERRED SELF Confirmed By:Jitendra Archibald
[2022-06-28] MEDS: HEPARIN SOD 5,000 UNIT/0.5 ML VIAL SQ SCH (21:57)
[2022-06-29 05:35] LABS: Hematocrit (blood only) 40.2 % (40.1-51.0); Hemoglobin 13.6 g/dl (14.0-18.0); Mean Corpuscular Hemoglobin 31.2 pg (25.0-34.0); Mean Corpuscular Hgb Conc 33.8 g/dL (32.0-36.0); Mean Corpuscular Volume 92.2 fL (80.0-100.0); Mean Platelet Volume 9.9 fL (9.4-12.4); Platelet Count 257 K/uL (130-400); RDW Coefficient of Variation 12.9 % (11.5-14.5); RDW Standard Deviation 43.7 fL (36.4-46.3); Red Blood Count 4.36 M/uL (4.63-6.08); White Blood Count 6.35 K/ul (4.8-10.8)
[2022-06-29 06:04] LABS: BUN Creatinine Ratio 17.4 (10-20); Calcium 8.4 mg/dl (8.5-10.1); Chol HDL Ratio 2.3 (0-5); Creatinine Clr Calc Pharmacy 105.3 ml/min; Est GFR (African American) 121.3 ml/min; Est GFR (Non-African American) 104.6 ml/min; Magnesium 1.9 mg/dl (1.7-2.4); Potassium 4.1 mmol/L (3.5-5.1)
[2022-06-29 06:10] LABS: Troponin I High Sensitivity 8.5 pg/ml (0-20)
[2022-06-29] MEDS ORDERED: CLOPIDOGREL BISULFATE 75 MG TAB PO SCH (09:00)
[2022-06-29] MEDS ORDERED: amLODIPine BESYLATE 5 MG TAB PO SCH (09:00)
[2022-06-29] MEDS ORDERED: lisinopril 40 MG TAB PO SCH (09:00)
[2022-06-29] MEDS ORDERED: NICOTINE 21 MG/24 HR TDSY TD SCH (09:00)
[2022-06-29] MEDS ORDERED: ROSUVASTATIN CALCIUM 10 MG TAB PO SCH (09:00)
[2022-06-29] MEDS ORDERED: ASPIRIN 81 MG ECTAB PO SCH (09:00)
--- NOTE | 2022-06-29 09:26 | Cardiology Progress Note ---
Date of Service June 29, 2022 Assessment & Plan (1) Syncope: (2) S/P drug eluting coronary stent placement: (3) Hyperlipidemia: Plan: (1) Syncope: 57-year-old male who recently started a new position with the [employer] department. 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 Evaluation at time of that admission included abnormal EKG with inferior T wave inversions, and elevation in the high-sensitivity troponin I, which peaked at 119 PG per mL. Patient went on to undergo cardiac catheterization 05/01/2022 with findings of a 70% "napkin ring "stenosis of the mid LAD for which the patient underwent PCI, implantation of a drug-eluting stent. Echocardiogram at that time revealed normal left ventricular wall motion, LVEF 60 to 65%. In the meantime, patient has been feeling well, and has returned to work. Yesterday at just after 7:30 in the morning, he states he had been doing some tasks that were not significantly strenuous. The patient got back into the work vehicle as a passenger, and his coworker witnessed him to have heavy perspiration and to his had a transient loss of consciousness while in a seated position. The patient does not recall "blacking out "however he also did not have any significant mental status change afterward. No tonic-clonic movement. No loss of bowel or bladder control. Work-up this admission reveals stable EKG findings unchanged compared to April. Serial troponin measurements are within normal limits. He has no symptoms as of recently to suggest angina. Blood pressure at the time of the arrival of the paramedics yesterday was reportedly normal around 120/80. History suggestive of an occult arrhythmia event. At this time recommend implantation of a implantable loop recorder. We will see if this can be performed today. Patient will likely need to be off of work for at least 1 week pending further assessment. (2) S/P drug eluting coronary stent placement: -Continue aspirin, clopidogrel, lisinopril, amlodipine, current doses. (3) Hyperlipidemia: Continue rosuvastatin, 10 mg daily. Admission and Anticipated Discharge Date Admission Date: June 28, 2022 Subjective Mr Zhao is seen in cardiology follow up of syncope. He notes feeling well. Denies chest pain , lightheadedness or syncope overnight. Telemetry reveals stable SR in the 60s to 70s. Review of Systems Review of Systems: All systems reviewed & are unremarkable except as noted in HPI & below Physical Exam Physical Exam: Temp Pulse Resp BP Pulse Ox O2 Del Method 36.7 C 69 19 131/90 98 06/29/22 07:59 06/29/22 07:59 06/29/22 07:59 06/29/22 07:59 06/29/22 07:59 06/29/22 07:59 Constitutional: WD/WN, vitals as above Respiratory: normal respiratory effort, lungs clear to auscultation Cardiovascular: RRR, no murmur, no edema Gastrointestinal (Abdomen): normal bowel sounds, soft, nontender, no hepatosplenomegaly Neurologic: PERRL, EOMI, accommodation nl, no face palsy, no dysarthria Results & Data ([facility]) Vital Signs (Past 12 Hours) Vital Signs Temp Pulse Pulse Resp BP Pulse Ox O2 Del Method 06/29/22 07:59 36.7 C 69 19 131/90 98 Room Air 06/29/22 07:13 62 06/29/22 04:00 36.6 C 68 18 136/87 98 Room Air 06/28/22 22:30 62 06/28/22 22:00 36.6 C 75 18 127/80 97 Room Air 06/28/22 21:49 Room Air Laboratory Results Cardiac Enzymes 06/28/22 06/28/22 06/28/22 Range/Units 08:25 11:18 16:24 AST 18 (13-39) U/L Troponin I High Sens 5.3 D 17.9 D 18.6 (0-20) pg/ml 06/28/22 06/29/22 Range/Units 23:11 05:16 AST (13-39) U/L Troponin I High Sens 13.2 D 8.5 D (0-20) pg/ml Lipids 06/29/22 Range/Units 05:16 Triglycerides 87 (0-150) mg/dl Cholesterol 108 (0-200) mg/dl HDL Cholesterol 46 mg/dl Cholesterol/HDL Ratio 2.3 (0-5) CBC 06/29/22 Range/Units 05:16 WBC 6.35 (4.8-10.8) K/ul RBC 4.36 L (4.63-6.08) M/uL Hgb 13.6 L (14.0-18.0) g/dl Hct 40.2 (40.1-51.0) % Plt Count 257 (130-400) K/uL Comprehensive Metabolic Panel 06/28/22 06/29/22 Range/Units 08:25 05:16 Sodium 135 L 136 (136-145) mmol/L Potassium 4.0 4.1 (3.5-5.1) mmol/L Chloride 106 107 (98-107) mmol/L Carbon Dioxide 22 25 (21-32) mmol/L BUN 12 12 (6-23) mg/dl Creatinine 0.77 0.69 (0.6-1.4) mg/dl Glucose 139 H 91 (70-99(Fasting)) mg/dl Calcium 8.8 8.4 L (8.5-10.1) mg/dl AST 18 (13-39) U/L ALT 12 (7-52) U/L Alkaline Phosphatase 57 (34-104) U/L Total Protein 6.8 (6.0-8.3) gm/dl Albumin 4.1 (3.4-5.0) gm/dl Intake and Output 06/28/22 06/29/22 06/29/22 22:59 06:59 14:59 Intake Total 400 / 400 Balance 400 / 400 Intake: IV 200 / 200 Magnesium Sulfate / D5w 1 gm In 200 / 200 100 ml @ 50 mls/hr IV Q2H [facility] Rx#:[id number] Oral 200 / 200 Other: Other Intake Source NPO Weight 71.7 kg Weight Measurement Method Standing Scale Diagnostic Findings EKG performed 06/28/22 and interpreted independently: SR at 79 bpm, inferior T wave inversion. Unchanged compared to prior dated 05/01/22. EKG 06/29/22 , interpreted independently: SR at 68 bpm, inferior T wave changes, once again unchanged. (1) Syncope Syncope type: unspecified Qualified Code(s): R55 - Syncope and collapse
--- NOTE | 2022-06-29 10:05 | Electrocardiogram Report ---
Test Reason : Blood Pressure : / mmHG Vent. Rate : 068 BPM Atrial Rate : 068 BPM P-R Int : 128 ms QRS Dur : 084 ms QT Int : 384 ms P-R-T Axes : 039 064 -50 degrees QTc Int : 408 ms Normal sinus rhythm with sinus arrhythmia Nonspecific T wave abnormality Abnormal ECG When compared with ECG of 28-JUN-2022 08:16, Nonspecific T wave abnormality no longer evident in Anterolateral leads Confirmed by Tod Kirkpatrick ([id number]) on 06/29/2022 10:04:32 AM Referred By: REFERRED SELF Confirmed By:Tod Kirkpatrick
[2022-06-29] MEDS ORDERED: LIDOCAINE 1% LOCAL 20 ML VIAL ONE (10:29)
--- NOTE | 2022-06-29 10:34 | Communication Note ---
Date of Service: June 29, 2022 I called patient's spouse. Notified her of plan for loop recorder.
[2022-06-29] MEDS: HEPARIN SOD 5,000 UNIT/0.5 ML VIAL SQ SCH (10:55)
--- NOTE | 2022-06-29 12:57 | Electrophysiology Report ---
Date of Service June 29, 2022 Electrophysiology Procedure Electrophysiology Procedure Report The procedure performed: Implantation of patient activated loop recorder Staff education and training manager: Sherif Archibald MD Indication: The patient is a 49-year-old gentleman with a history of syncope. In order to provide some diagnostic information the patient was 5 to consider implantation of a loop recorder. Procedure in detail: The patient was informed of the risks benefits and alternatives to the intended procedure. They understood such and wished to proceed. The patient was taken to the electrophysiology suite where the upper chest area was prepped and draped in the usual sterile fashion. An area left lateral to the sternum in the 4th intercostal space was subsequently anesthetized using subcutaneous administration of lidocaine solution. A small incision was made at this site and implantation of the loop recorder was accomplished using a proprietary implantation tool. The small incision was subsequently closed using a single 4 0 Vicryl suture. Steri-Strips and a sterile dressing were then applied. The patient tolerated the procedure well. There were no immediate complications. The device was tested noninvasively prior to conclusion of the procedure. Equipment used: Patient activated loop recorder: Pattern [employer]er [employer]. Model number [id number]. Serial number [id number] Electrophysiology codes Implantable Monitors Procedure 1: Implantable Monitors: [id number] Loop Recorder Implant
--- NOTE | 2022-06-29 14:31 | Hospitalist Progress Note ---
Date of Service June 29, 2022 Assessment & Plan (1) CAD (coronary artery disease): (2) S/P drug eluting coronary stent placement: (3) Hyperlipidemia: (4) Current tobacco use: (5) Syncope: Plan Mr. Silvestre San is a 57 y/o who was a recent PCI s/p ABEL x1 to the LAD on May 01, 2022. He described no presyncopal symptoms and reports some diaphoresis and blurry vision right after the episode. CAD s/p drug eluting coronary stent placement Near Syncope: -05/01/22: 70% LAD occlusion; single ABEL placement. He also underwent angioplasty for jailed diagonal ostium. -Follows with Cardiology; treatment includes dual-antiplt therapy x1 year with Plavix and ASA. Last Cardiology f/u: 06/01/22 -echo pending -serial HS trops overnight were negative. -loop recorder placement for today Essential HTN: -chronic, cont amlodipine and lisinopril -Lisinopril was increased from 30mg to 40 mg last admission HLD: -chronic, stable, cont crestor per home regimen. Current Tobacco Use: -Currently smoking 1 PPD; Recommend smoking cessation program -Continue Nicotine Patch Disposition: -PCP: Dr. Carmona -Code Status: Full -VTE Prophylaxis: SCDs/heparin -Goal to return home at [place] after loop recorder placement. Zohra Ladd DO [facility] Hospitalist Admission and Anticipated Discharge Date Admission Date: June 28, 2022 Subjective 57 yo M presented with syncope Feels well today with no lightheadedness, chest pain, SOB Tolerating PO Ambulating at baseline Given recurrent syncope, scheduled for loop recorder implantation over lunch time. Review of Systems Review of Systems: All systems were reviewed and negative except as indicated on subjective above. Physical Exam Physical Exam: CONSTITUTIONAL: WNWD, vitals as above, generally well- appearing, NAD EYES: normal conjunctivae, no scleral icterus, ENT: external ear and nose normal, MMM, poor dentition NECK: trachea midline, RESPIRATORY: clear to auscultation bilaterally, no crackles, rales or wheezes, normal respiratory effort CARDIOVASCULAR: regular rate and rhythm, S1 and 2 heard without murmurs, gallops or rubs, no JVD, no peripheral edema CHEST: inspection of chest was normal GASTROINTESTINAL: soft, nontender, ND, no guarding MUSCULOSKELETAL: strength 5/5 throughout, head is normocephalic and atraumatic, SKIN: warm and dry NEUROLOGIC: CN 2-12 grossly intact, no sensory deficit, normal cognition, normal speech, no tremor PSYCHIATRIC: alert cooperative and oriented to person, place and time. Results & Data Results & Data ([facility]) Vital Signs (Past 12 Hours) Vital Signs Temp Pulse Pulse Resp BP Pulse Ox O2 Del Method 06/29/22 12:11 63 134/103 H 100 06/29/22 11:23 37 C 63 18 134/87 100 Room Air 06/29/22 07:59 36.7 C 69 19 131/90 98 Room Air 06/29/22 07:13 62 06/29/22 04:00 36.6 C 68 18 136/87 98 Room Air Laboratory Results Short CBC 06/29/22 Range/Units 05:16 WBC 6.35 (4.8-10.8) K/ul Hgb 13.6 L (14.0-18.0) g/dl Hct 40.2 (40.1-51.0) % Plt Count 257 (130-400) K/uL BMP 06/29/22 05:16 Sodium 136 Potassium 4.1 Chloride 107 Carbon Dioxide 25 BUN 12 Creatinine 0.69 Glucose 91 Calcium 8.4 L Medications Administered Current Inpatient Medications Amlodipine Besylate (Amlodipine Besylate 5 Mg Tab) 5 mg PO DAILY [facility] Stop: 07/29/22 08:59 Last Admin: 06/29/22 10:55 Dose: 5 mg Aspirin (Aspirin 81 Mg Ectab) 81 mg PO QAM [facility] Stop: 07/29/22 08:59 Last Admin: 06/29/22 10:55 Dose: 81 mg Clopidogrel Bisulfate (Clopidogrel Bisulfate 75 Mg Tab) 75 mg PO QAM [facility] Stop: 07/29/22 08:59 Last Admin: 06/29/22 10:55 Dose: 75 mg Heparin Sodium (Porcine) (Heparin Sod 5,000 Unit/0.5 Ml Vial) 5,000 units SQ Q12 [facility] Stop: 07/28/22 20:59 Last Admin: 06/29/22 10:55 Dose: Not Given Lisinopril (Lisinopril 40 Mg Tab) 40 mg PO DAILY [facility] Stop: 07/29/22 08:59 Last Admin: 06/29/22 10:55 Dose: 40 mg Miscellaneous (Remove Nicoderm Patch) 1 each N/A DAILY@0859 [facility] Stop: 07/29/22 08:58 Last Admin: 06/29/22 10:56 Dose: Not Given Nicotine (Nicotine 21 Mg/24 Hr Tdsy) 21 mg TD DAILY [facility] Stop: 07/29/22 08:59 Last Admin: 06/29/22 10:57 Dose: Not Given Rosuvastatin Calcium (Rosuvastatin Calcium 10 Mg Tab) 10 mg PO DAILY [facility] Stop: 07/29/22 08:59 Last Admin: 06/29/22 10:55 Dose: 10 mg (1) Syncope Syncope type: unspecified Qualified Code(s): R55 - Syncope and collapse
--- NOTE | 2022-06-29 15:09 | Discharge Summary ---
Discharge Summary Date of Service June 29, 2022 Notes For Next Care Provider -followup wound check -ensure no further symptoms of syncope/lightheadedness since leaving hospital Medication Changes From Visit no changes Admission HPI Per Admitting Provider Mr. San presented to the [facility] ED as he was experiencing lightheadedness while he was at work. His coworker stated that his eyes rolled back into his head and was not responsive for a few seconds. He was admitted in April with similar symptoms and was evaluated by Cardiology and underwent a PCI and was found to have 70% LAD occlusion s/p ABEL placed x 1. ECHO at that time was EF 60- 65%. Pt is currently smoking 1 pack of cigarettes daily. CXR performed and negative. Flat T wave present on EKG today. Additional PMH includes: hyperlipidemia, tobacco use and essential HTN. Pt denies fevers, cough, sore throat, dizziness, STACY, CP, palpitations, abdominal pain, N/V/D. Patient will be admitted for further evaluation and medical management. Please see A/P for further details. Admission Exam Per Admitting Provider Upon examination: GENERAL: Alert and oriented x3. NAD, on RA. HEENT: No pallor, no icterus. Pupils equal, round and reactive to light. Oral mucosa moist. NECK: No JVD, no neck masses. HEART: S1 and S2 heard. Regular rate and rhythm. No murmur, no gallop. RESPIRATORY SYSTEM: Normal AP diameter. No accessory muscle use. No wheezing, no crackles. ABDOMEN: Soft, bowel sounds present, nontender, no distention. CENTRAL NERVOUS SYSTEM: No facial droop. Speech is clear. Obeys simple commands. Moves extremities. EXTREMITIES: No edema, no erythema seen. Principal Dx & Hospital Course #1 = Principal Diagnosis (1) Syncope: (2) CAD (coronary artery disease): (3) S/P drug eluting coronary stent placement: (4) Hyperlipidemia: (5) Current tobacco use: Plan 57-year-old man with history of syncope presented with recurrent loss of consciousness. On admission EKG did not reveal lindsey ischemia and serial troponin measurements were within normal limits. He had no symptoms recently to suggest angina. Blood pressure and other hemodynamics were within normal limits during his stay and just prior to arrival. He has a history suggestive of an occult arrhythmia event and cardiology recommended an implantable loop recorder. He has a history of recent drug-eluting stent placement in was continued on aspirin, Plavix, lisinopril, amlodipine at current doses. Also taking rosuvastatin. He underwent implantation of a loop recorder by Dr. Sherif Archibald on 06/29/2022 without complications. He was discharged in stable condition with close primary care followup recommended. He was advised to avoid work for 1 week. He was counseled to quit smoking. Discharge Exam CONSTITUTIONAL: WNWD, vitals as above, generally well-appearing, NAD EYES: normal conjunctivae, no scleral icterus, ENT: external ear and nose normal, MMM, poor dentition NECK: trachea midline, RESPIRATORY: clear to auscultation bilaterally, no crackles, rales or wheezes, normal respiratory effort CARDIOVASCULAR: regular rate and rhythm, S1 and 2 heard without murmurs, gallops or rubs, no JVD, no peripheral edema CHEST: inspection of chest was normal GASTROINTESTINAL: soft, nontender, ND, no guarding MUSCULOSKELETAL: strength 5/5 throughout, head is normocephalic and atraumatic, SKIN: warm and dry NEUROLOGIC: CN 2-12 grossly intact, no sensory deficit, normal cognition, normal speech, no tremor PSYCHIATRIC: alert cooperative and oriented to person, place and time. Updated Medication List Medication Instructions Recorded Confirmed Type amlodipine 5 mg tablet 5 mg PO DAILY 05/31/19 06/28/22 History rosuvastatin 10 mg tablet 10 mg PO DAILY 05/31/19 06/28/22 History aspirin 81 mg tablet,delayed 81 mg PO QAM #90 tabs 05/02/22 06/28/22 Rx release clopidogrel 75 mg tablet 75 mg PO QAM #30 tabs 05/02/22 06/28/22 Rx lisinopril 40 mg tablet (Zestril) 40 mg PO DAILY #30 tabs 05/02/22 06/28/22 Rx nicotine 21 mg/24 hr daily 1 patch transdermal DAILY #14 ea 05/02/22 06/28/22 Rx transdermal patch (Nicoderm CQ) Hospital Stay Data Consultations 06/28/22 09:58 ED Decision to Admit Stat 06/28/22 10:33 Consult Cardiology Routine Procedures Performed Operation Date: 06/29/22 12:30 Actual Procedures p Loop Insertion - Sherif Archibald MD Diagnostic Imagining Performed Laboratory Results WBC 6.35 K/ul (4.8-10.8) 06/29/22 05:16 RBC 4.36 M/uL (4.63-6.08) L 06/29/22 05:16 Hgb 13.6 g/dl (14.0-18.0) L 06/29/22 05:16 Hct 40.2 % (40.1-51.0) 06/29/22 05:16 MCV 92.2 fL (80.0-100.0) 06/29/22 05:16 MCH 31.2 pg (25.0-34.0) 06/29/22 05:16 MCHC 33.8 g/dL (32.0-36.0) 06/29/22 05:16 RDW Std Deviation 43.7 fL (36.4-46.3) 06/29/22 05:16 RDW Coeff of Bar 12.9 % (11.5-14.5) 06/29/22 05:16 Plt Count 257 K/uL (130-400) 06/29/22 05:16 MPV 9.9 fL (9.4-12.4) 06/29/22 05:16 Immature Gran % (Auto) 0.4 % 06/28/22 08:25 Neut % (Auto) 68.7 % 06/28/22 08:25 Lymph % (Auto) 22.9 % 06/28/22 08:25 Elliott % (Auto) 6.8 % 06/28/22 08:25 Eos % (Auto) 0.9 % 06/28/22 08:25 Baso % (Auto) 0.3 % 06/28/22 08:25 Neut # (Auto) 6.64 K/uL (1.4-6.5) H 06/28/22 08:25 Lymph # (Auto) 2.21 K/uL (1.2-3.4) 06/28/22 08:25 Elliott # (Auto) 0.66 K/uL (0.24-0.82) 06/28/22 08:25 Eos # (Auto) 0.09 K/uL (0-0.50) 06/28/22 08:25 Baso # (Auto) 0.03 K/uL (0-0.2) 06/28/22 08:25 Immature Gran # (Auto) 0.04 K/uL (0.00-0.02) H 06/28/22 08:25 PT 10.2 Seconds (9.0-12.0) 06/28/22 08:25 INR 1.0 (0.9-1.1) 06/28/22 08:25 APTT 25.4 Seconds (21.0-31.0) 06/28/22 08:25 PTT Ratio 0.9 06/28/22 08:25 Sodium 136 mmol/L (136-145) 06/29/22 05:16 Potassium 4.1 mmol/L (3.5-5.1) 06/29/22 05:16 Chloride 107 mmol/L (98-107) 06/29/22 05:16 Carbon Dioxide 25 mmol/L (21-32) 06/29/22 05:16 Anion Gap 4 (3-11) 06/29/22 05:16 BUN 12 mg/dl (6-23) 06/29/22 05:16 Creatinine 0.69 mg/dl (0.6-1.4) 06/29/22 05:16 Est Cr Clr Drug Dosing 105.3 ml/min 06/29/22 05:16 Est GFR ( Amer) 121.3 ml/min 06/29/22 05:16 Est GFR (Non-Af Amer) 104.6 ml/min 06/29/22 05:16 BUN/Creatinine Ratio 17.4 (10-20) 06/29/22 05:16 Glucose 91 mg/dl (70-99(Fasting)) 06/29/22 05:16 Calcium 8.4 mg/dl (8.5-10.1) L 06/29/22 05:16 Magnesium 1.9 mg/dl (1.7-2.4) 06/29/22 05:16 Total Bilirubin 0.6 mg/dl (0.2-1.0) 06/28/22 08:25 AST 18 U/L (13-39) 06/28/22 08:25 ALT 12 U/L (7-52) 06/28/22 08:25 Alkaline Phosphatase 57 U/L (34-104) 06/28/22 08:25 Troponin I High Sens 8.5 pg/ml (0-20) D 06/29/22 05:16 Total Protein 6.8 gm/dl (6.0-8.3) 06/28/22 08:25 Albumin 4.1 gm/dl (3.4-5.0) 06/28/22 08:25 Globulin 2.7 gm/dl (2.5-4.0) 06/28/22 08:25 Albumin/Globulin Ratio 1.5 (0.9-2) 06/28/22 08:25 Triglycerides 87 mg/dl (0-150) 06/29/22 05:16 Cholesterol 108 mg/dl (0-200) 06/29/22 05:16 LDL Cholesterol, Calc 45 mg/dl 06/29/22 05:16 VLDL Cholesterol, Calc 17 mg/dl (0-30) 06/29/22 05:16 HDL Cholesterol 46 mg/dl 06/29/22 05:16 Cholesterol/HDL Ratio 2.3 (0-5) 06/29/22 05:16 Lipase 50 U/L (11-82) 06/28/22 08:25 SARS-CoV-2, RNA, NAAT NEGATIVE (NEGATIVE) 06/28/22 08:45 Impressions Chest X-Ray 06/28/22 13:24 SINGLE VIEW CHEST CLINICAL HISTORY: Lightheadedness. FINDINGS: An AP, portable, upright chest radiograph is compared to study dated 06/28/2022. The cardiomediastinal silhouette is unremarkable. Emphysema and chronic interstitial thickening is similar to previous. There is mild bibasilar scarring/atelectasis. No airspace consolidation or large pleural effusion is identified. No pneumothorax is seen. The bony thorax is grossly intact. IMPRESSION: Emphysematous change with no active disease in the chest. ACT 112: Negative or not required by law. Electronically signed by: Viet Craig M.D. 06/28/2022 1:53 PM Pending Results Patient Have Any Pending Studies at Discharge: No Discharge Instructions Given to Patient (Per Discharging Provider) Please take all medications as instructed on discharge list below. Please follow-up with cardiology next week for a wound check and with primary care at the date and time above. This will be important to review how you are feeling since discharge from the hospital and fill out any benefit paperwork for your employer as needed. It is strongly recommended that you quit smoking as this is terrible for your health! 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 Please keep the chest wound with steri strips over your wound dry for at least 5 days and follow-up with the cardiology office at [facility] for a post operative wound check. It was a pleasure taking care of you! Please call if you have any questions or problems. You can reach a [facility] on duty at [facility] 24 hours a day by calling [phone]. Take care of yourself. Zohra Ladd, [facility] Hospitalist Total Time Total Time Spent Total Time Spent (In Minutes): 60
== END 2022-06-29 16:37 | disposition home or self-care (01) | DRG 310 ==
LOC: ED 08:14 → INTOOBSV 10:11 → SUATTDRO 10:11 → EDINP 10:11 → 2N 13:11

== ENCOUNTER 2022-10-23 06:57 | Observation (INO) ==
[2022-10-23] MEDS ORDERED: LIDOCAINE 1% LOCAL 20 ML VIAL ONE (07:06)
[2022-10-23] MEDS ORDERED: niCARdipine HCL INJ 2.5 MG/ML 10 ML AMP ONE (07:51)
[2022-10-23] MEDS ORDERED: HEPARIN (PORCINE) 1000 UNIT/ML 10 ML (CATH LAB USE ONLY) ONE (07:51)
[2022-10-23] MEDS ORDERED: MIDAZOLAM HCL 1 MG/ML 2ML VIAL ONE (07:51)
[2022-10-23] MEDS ORDERED: NITROGLYCERIN/D5W 100MCG/ML 20ML SYR ONE (07:52)
[2022-10-23] MEDS ORDERED: fentaNYL citrate 100 MCG/2 ML VIAL ONE (07:52)
--- NOTE | 2022-10-23 07:56 | History & Physical Bridge Note ---
Date of Service October 23, 2022 History & Physical Bridge Note I have examined the patient, reviewed the History & Physical and in the interval since the performance of the History & Physical I have noted the following changes of clinical significance: no changes noted
--- NOTE | 2022-10-23 07:59 | Pre Anesthesia Assessment ---
Date of Service October 23, 2022 Pre Sedation Assessment Vital Signs Temp Pulse Pulse Resp BP Pulse Ox O2 Del Method 10/24/22 06:30 36.4 C L 72 18 128/86 97 Room Air 10/24/22 03:02 36.5 C 78 18 115/80 97 Room Air 10/23/22 22:44 36.6 C 71 16 109/71 98 Room Air 10/23/22 19:42 36.7 C 71 18 114/78 98 Room Air 10/23/22 16:00 36.7 C 66 14 118/76 99 Room Air 10/23/22 16:10 36.7 C 66 14 118/76 99 Room Air 10/23/22 15:00 60 18 106/82 98 Room Air 10/23/22 14:00 80 18 125/85 98 Room Air 10/23/22 13:30 67 18 123/87 98 Room Air 10/23/22 13:15 82 18 116/86 98 Room Air 10/23/22 13:00 64 18 133/85 96 Room Air 10/23/22 12:45 78 18 117/85 98 Room Air 10/23/22 12:30 75 18 116/85 98 Room Air 10/23/22 12:15 81 18 125/90 98 Room Air 10/23/22 12:00 80 18 112/88 98 Room Air 10/23/22 11:45 66 18 119/87 98 Room Air 10/23/22 11:30 73 18 127/91 99 Room Air 10/23/22 11:00 83 18 149/90 H 98 Room Air 10/23/22 11:15 64 18 114/83 99 Room Air 10/23/22 10:45 89 18 142/101 H 98 Room Air 10/23/22 10:30 81 18 150/92 H 98 Room Air 10/23/22 10:15 77 18 130/90 98 Room Air 10/23/22 10:00 70 18 132/92 98 Room Air 10/23/22 09:55 79 18 134/98 98 Room Air Cardiovascular + regular rate and + regular rhythm + S1 normal and + S2 normal; no murmur + femoral pulses present and + radial pulses present; no JVD and no carotid bruit no edema Respiratory + respiratory effort normal; no respiratory distress no crackles, no rales, no rhonchi and no wheezes Pre-Sedation Airway Assessment Smoking Status: Current every day smoker Hx Sleep Apnea: No Short, Thick Neck: No Thyromental Distance: > or= 3.5 Finger Breadths Oral Cavity: + WNL Mallampati Class: II ASA: ASA2 NPO Status Date of Last Intake of Fluids: 10/23/22 Time of Last Intake of Fluids: 05:00 Date of Last Intake of Solid Food: 10/22/22 Time of Last Intake of Solid Foods: 18:00 Procedure Planning Contraindications for Sedation: none Current Medications Reviewed: No Notes The planned sedation has been discussed with the patient. Informed Consent was obtained. I have identified the patient, determined the appropriateness of sedation and have assessed the patient immediately prior to the procedure. All medicine(s) and interventions are by my order.
[2022-10-23] MEDS ORDERED: PHENYLEPHRINE HCL INJ 10 MG/ML VIAL (CATH LAB USE ONLY) ONE (08:37)
--- NOTE | 2022-10-23 09:17 | Post Anesthesia Assessment ---
Date of Service October 23, 2022 Post Sedation Assessment Vital Signs Temp Pulse Pulse Resp BP Pulse Ox O2 Del Method 10/24/22 06:30 36.4 C L 72 18 128/86 97 Room Air 10/24/22 03:02 36.5 C 78 18 115/80 97 Room Air 10/23/22 22:44 36.6 C 71 16 109/71 98 Room Air 10/23/22 19:42 36.7 C 71 18 114/78 98 Room Air 10/23/22 16:00 36.7 C 66 14 118/76 99 Room Air 10/23/22 16:10 36.7 C 66 14 118/76 99 Room Air 10/23/22 15:00 60 18 106/82 98 Room Air 10/23/22 14:00 80 18 125/85 98 Room Air 10/23/22 13:30 67 18 123/87 98 Room Air 10/23/22 13:15 82 18 116/86 98 Room Air 10/23/22 13:00 64 18 133/85 96 Room Air 10/23/22 12:45 78 18 117/85 98 Room Air 10/23/22 12:30 75 18 116/85 98 Room Air 10/23/22 12:15 81 18 125/90 98 Room Air 10/23/22 12:00 80 18 112/88 98 Room Air 10/23/22 11:45 66 18 119/87 98 Room Air 10/23/22 11:30 73 18 127/91 99 Room Air 10/23/22 11:00 83 18 149/90 H 98 Room Air 10/23/22 11:15 64 18 114/83 99 Room Air 10/23/22 10:45 89 18 142/101 H 98 Room Air 10/23/22 10:30 81 18 150/92 H 98 Room Air 10/23/22 10:15 77 18 130/90 98 Room Air 10/23/22 10:00 70 18 132/92 98 Room Air 10/23/22 09:55 79 18 134/98 98 Room Air Recovery Score Activity: Moves 4 extremities Respiration: Deep Breath/Cough Circulation: +/-20% PreAnes Value Consciousness: Arouseable (by name) Oxygen Saturation: > 92% On Room Air Discharge Sedation Level of Care: Phase I Post Sedation Plan On clinical assessment, the patient appears to have tolerated the sedation without complications. Patient is recovering as anticipated. Patient will continue to be monitored by nursing and may be discharged when sedation discharge criteria are met per below protocol. Upon Completions of procedure up to 15 minutes continue every 5 minute vital signs and the P.A.R. score; then discharge to a Phase I or Fast Track to Phase II per the following guidelines: * Discharge Patient to appropriate Phase II area if PAR is 8 or greater or return to pre- procedure baseline. The post - procedure orders will be as directed. * If PAR score is less than 8 or not return to pre-procedure baseline then patient will follow Phase I monitoring till PAR is reached for Phase II. The Phase I may be done in procedure room or may call to secure a Phase I area. * If naloxone or flumazenil are used for reversal, hold in Phase I for continued monitoring from when last reversal dose was given for a minimum of 60 minutes or longer pending the nurse and/or physician discretion of patient condition before discharge to Phase II. Please call the Sedation Physician to re-evaluate and complete post-note for discharge to Phase II area. Do NOT discharge from procedure sedation or Phase 1 until post- sedation evaluation note is complete by procedure /sedation MD Sedation Discharge Instructions to be given to the patient at discharge to home.
--- NOTE | 2022-10-23 09:30 | Cardiac Catheterization ---
Cardiac Cath Procedure Full Procedure Date October 23, 2022 Pre-Procedure Diagnosis Pre-Procedure Diagnosis: Angina, Positive Stress Test and CAD AUC Score AUC Score: 8 Post-Procedure Diagnosis Post-Procedure Diagnosis: Severe CAD and Successful PCI Procedure(s) Performed Procedure(s) Performed: Coronary Angiography, Drug Eluting Stent and IVUS Acting Section Chief Cortez Narayan DO Nail Technician Teacher(s) Jacky RTNan Estimated Blood Loss Estimated Blood Loss: 6cc Medication(s) Medication(s): Fentanyl, Heparin, Sudhakar-Synephrine (300mcg for asymptomatic hypotension), Nicardipine, Nitroglycerin and Versed Summary of Findings 70% proximal LAD Patent LAD stent Hemodynamics Rest Ao:: 72/50/61 Final Ao: 104/67/84 LV: 99//12 Recommendations Recommendations: Management Recommendatons (IVUS LAD with PCI if indicated) Radiation Exposure (mGy) 685 Contrast (mls) 30 Fluids (cc crystalloids) Fluids (cc crystalloids): 500 nss Drains Drains: N/A Anesthesia Moderate sedation. Start 0828. End 0908. Sedation monitor: Sudhir BLUE Procedural Complication(s) Hypotensive reaction to nicardipine/nitroglycerin infusion. I attest to the content of the Intraoperative Record and any orders documented therein. Any exceptions are noted below. 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 Recent dobutamine stress echo with reproduction of angina and ECG changes, however, no regional wall motion abnormality identified. Due to ongoing symptoms, patient referred for cardiac catheterization. CAD Presenation: Stable angina Anginal Classification: CCS II Coronary Anatomy Dominant: Right Left Main (% Stenosis): Normal LAD (% Stenosis): Proximal (70%), Mid (patent stent) and Distal (Luminal irregularities, 20%) D1 (% Stenosis): Ostial (70%, small 1mm vesssel) D2 (% Stenosis): Normal D3 (% Stenosis): Ostial (50%, jailed by LAD stent) Circumflex (% Stenosis): Normal OM1 (% Stenosis): Normal RCA (% Stenosis): Proximal (luminal irregularities, 20%) and Mid (luminal irregularities, 20%) R PDA (% Stenosis): Proximal (luminal irregularities, 10%) R PL1 (% Stenosis): Normal R PL2 (% Stenosis): Normal Diagnostic Physicians Name: Cortez Nraayan, Closure Device Percutaneous Entry Location: Radial Closure Device: Radial Band Recommendations: Management Recommendatons (IVUS LAD with PCI if indicated) Intraprocedure Events Significant Disection: No Perforation: No
[2022-10-23] MEDS ORDERED: CLOPIDOGREL BISULFATE 300 MG TAB ONE (09:58)
[2022-10-23] MEDS ORDERED: ACETAMINOPHEN 325 MG TAB PO PRN (10:20)
[2022-10-23] MEDS ORDERED: ONDANSETRON INJ 2 MG/ML 2 ML VIAL IV PRN (10:20)
--- NOTE | 2022-10-23 11:42 | Post Anesthesia Assessment ---
Date of Service October 23, 2022 Post Sedation Assessment Vital Signs Pulse Resp BP Pulse Ox O2 Del Method 10/23/22 11:00 83 18 149/90 H 98 Room Air 10/23/22 11:15 64 18 114/83 99 Room Air 10/23/22 10:45 89 18 142/101 H 98 Room Air 10/23/22 10:30 81 18 150/92 H 98 Room Air 10/23/22 10:15 77 18 130/90 98 Room Air 10/23/22 10:00 70 18 132/92 98 Room Air 10/23/22 09:55 79 18 134/98 98 Room Air 10/23/22 07:20 79 16 130/80 96 Room Air Recovery Score Activity: Moves 4 extremities Respiration: Deep Breath/Cough Circulation: +/-20% PreAnes Value Consciousness: Fully Awake Oxygen Saturation: > 92% On Room Air Post Anesthesia Score: 10 Discharge Sedation Level of Care: Fast Track Phase II Post Sedation Plan On clinical assessment, the patient appears to have tolerated the sedation without complications. Patient is recovering as anticipated. Patient will continue to be monitored by nursing and may be discharged when sedation discharge criteria are met per below protocol. Upon Completions of procedure up to 15 minutes continue every 5 minute vital signs and the P.A.R. score; then discharge to a Phase I or Fast Track to Phase II per the following guidelines: * Discharge Patient to appropriate Phase II area if PAR is 8 or greater or return to pre- procedure baseline. The post - procedure orders will be as directed. * If PAR score is less than 8 or not return to pre-procedure baseline then patient will follow Phase I monitoring till PAR is reached for Phase II. The Phase I may be done in procedure room or may call to secure a Phase I area. * If naloxone or flumazenil are used for reversal, hold in Phase I for continued monitoring from when last reversal dose was given for a minimum of 60 minutes or longer pending the nurse and/or physician discretion of patient condition before discharge to Phase II. Please call the Sedation Physician to re-evaluate and complete post-note for discharge to Phase II area. Do NOT discharge from procedure sedation or Phase 1 until post- sedation evaluation note is complete by procedure /sedation MD Sedation Discharge Instructions to be given to the patient at discharge to home.
--- NOTE | 2022-10-23 11:49 | Cardiac Catheterization ---
ACC Data: Fuel Cell Test Engineer Cardiac Status Clinical evaluation leading to the procedure CAD Presenation: Positive Stress Test and Unstable angina Anginal Classification: CCS III Diagnostic Physicians Name: Sherif Julian MD Closure Device Recommendations: PCI without planned CABG Cardiac Cath Procedure Full Procedure Date October 23, 2022 Pre-Procedure Diagnosis Pre-Procedure Diagnosis: Angina and Positive Stress Test AUC Score AUC Score: 8 Post-Procedure Diagnosis Post-Procedure Diagnosis: Severe CAD and Successful PCI Procedure(s) Performed Procedure(s) Performed: Coronary Angiography, Drug Eluting Stent and IVUS Movie Editor Sherif Julian MD Chief School Finance Officer(s) Jacky RTNan Estimated Blood Loss Estimated Blood Loss: 15 Medication(s) Medication(s): Clopidogrel, Fentanyl, Heparin, Lidocaine 1%, Nicardipine, Nitroglycerin and Versed Summary of Findings Indication: Abnormal stress test, angina Access: 6 Fr right radial artery Catheters: EBU 3.5 guide Findings: For full details of patient's coronary angiography please see cath report dic tated by Dr. Narayan. Briefly, patient found to have severe single-vessel LAD disease upstream from prior stent. In the setting of refractory symptoms, abnormal stress test decision to further evaluate with IVUS and proceed with potential PCI. -- PCI -- Antithrombotic therapy: Heparin, clopidogrel Procedure: Left main cannulated with EBU 3.5 guide Pre-procedure flow SERG 3 BMW wire passed across lesion into distal vessel Augusta IVUS catheter placed into mid LAD across stents Pullback revealed widely patent mid LAD stent that was well apposed without restenosis. Proximal to mid LAD showed moderate to severe, calcified disease (MLA 3.5 mm, 76% by IVUS) Proximal to mid LAD stented with 2.75 x 28 mm Xience drug-eluting stent which overlapped proximal aspect of prior stent Stent post-dilated with 3.5 noncompliant balloon Repeat IVUS showed well expanded, well apposed stent with no apparent edge complications. IC vasodilators administered for spasm Post procedure SERG 3 flow, stent well expanded with minimal residual stenosis and no apparent cardiac complications. Arterial Closure: TR band Summary: 1. Successful PCI of proximal to mid LAD with single drug-eluting stent overl apping proximal aspect of prior mid LAD stent (2.75 x 28 mm Xience; postdilated with 3.5 NC) Recommendations: To PCU for continued monitoring Reloaded with clopidogrel 300 mg in Fuel Cell Test Engineer Continue dual-antiplatelet therapy for at least 6 months Continue statin, and ASCVD risk factor modification Consult cardiac Rehab Hemodynamics Rest Ao:: 120/76/94 Final Ao: 133/81/103 LV: -- Recommendations Recommendations: PCI without planned CABG Specimens Specimens: None Radiation Exposure (mGy) 1650 Contrast (mls) 60 Anesthesia Moderate sedation. Start 0918. End 0947. Sedation monitor: Sudhir BLUE Procedural Complication(s) None Disposition PCU I attest to the content of the Intraoperative Record and any orders documented therein. Any exceptions are noted below. [facility] Card Cath Procedure Codes Therapeutic Services & Ancillary Procedure 1: Cardiovascular Tx and Anc Procedures: 66395 IV Ultrasound (Coronary or Graft) Moderate Sedation Procedure 1: Sedation/Anesthesia: 15386 Mod Sedation by the same physician; Ea [id number] Minutes Stenting Procedure 1: Cardiovascular Stent Procedures: 96172 Perc transcatheter placement of intracoronary stent(s), with ang PG Care Time/CCT Total # of Minutes Spent Total Time Spent with Patient: Total time spent is greater than 50% in coordination of care (as documented) at patient's floor/unit and/or counseling patient:
[2022-10-23] MEDS: SODIUM CHLORIDE 0.9% 1000ML 1,000 ML IV SCH (14:08)
--- NOTE | 2022-10-23 16:32 | Electrocardiogram Report ---
Test Reason : Blood Pressure : / mmHG Vent. Rate : 065 BPM Atrial Rate : 065 BPM P-R Int : 100 ms QRS Dur : 086 ms QT Int : 380 ms P-R-T Axes : 029 044 039 degrees QTc Int : 395 ms Sinus rhythm with short [place] Otherwise normal ECG When compared with ECG of 29-JUN-2022 05:32, T wave inversion no longer evident in Inferior leads Confirmed by Franck Michaud ([id number]) on 10/23/2022 4:31:56 PM Referred By: Rosemary Kuhn Confirmed By:Franck Michaud
[2022-10-23] MEDS: METOPROLOL SUCC 25MG EXT REL TAB PO SCH (19:52)
[2022-10-24] MEDS: SODIUM CHLORIDE 0.9% 1000ML 1,000 ML IV SCH ×3 (00:34→08:25)
[2022-10-24] MEDS: METOPROLOL SUCC 25MG EXT REL TAB PO SCH (08:23)
[2022-10-24 08:42] LABS: Basophils # (auto) 0.05 K/uL (0-0.2); Basophils % (auto) 0.7 %; Eosinophils # (auto) 0.09 K/uL (0-0.50); Eosinophils % (auto) 1.3 %; Hematocrit (blood only) 38.4 % (40.1-51.0); Hemoglobin 13.6 g/dl (14.0-18.0); Immature Granulocytes # (auto) 0.02 K/uL (0.00-0.02); Immature Granulocytes % (auto) 0.3 %; Lymphocytes # (auto) 1.91 K/uL (1.2-3.4); Lymphocytes % (auto) 26.6 %; Mean Corpuscular Hemoglobin 31.6 pg (25.0-34.0); Mean Corpuscular Hgb Conc 35.4 g/dL (32.0-36.0); Mean Corpuscular Volume 89.3 fL (80.0-100.0); Mean Platelet Volume 10.1 fL (9.4-12.4); Monocytes # (auto) 0.63 K/uL (0.24-0.82); Monocytes % (auto) 8.8 %; Neutrophils # (auto) 4.47 K/uL (1.4-6.5); Neutrophils % (auto) 62.3 %; Platelet Count 217 K/uL (130-400); RDW Coefficient of Variation 12.4 % (11.5-14.5); RDW Standard Deviation 40.5 fL (36.4-46.3); White Blood Count 7.17 K/ul (4.8-10.8)
--- NOTE | 2022-10-24 08:56 | Cardiology Progress Note ---
Date of Service October 24, 2022 Assessment & Plan (1) S/P drug eluting coronary stent placement: (2) CAD (coronary atherosclerotic disease): (3) Hyperlipidemia: (4) Current tobacco use: Plan Discussed importance of continuing dual antiplatelet therapy for minimum of 1 year. Patient voiced understanding. Other cardiovascular medications will be continued as previously ordered. Outpatient cardiology follow-up schedule 11/29/2022. Postprocedural activity restrictions reviewed. All questions answered to patient satisfaction. Discharge home today. Admission and Anticipated Discharge Date Admission Date: October 23, 2022 Subjective Patient seen examined the bedside. Resting comfortably. Denies chest discomfort or shortness of breath overnight. Telemetry reveals sinus rhythm in the 60s. Occasional PVCs recorded. No palpitations. Patient offers no concerns/complaints. Review of Systems Review of Systems: All systems reviewed & are unremarkable except as noted in Subjective Physical Exam Constitutional: well developed and well nourished; no acute distress and not ill appearing Respiratory: normal respiratory effort; no respiratory distress A uscultation: no crackles, no rales, no rhonchi and no wheezes Cardiovascular: Rate/Rhythm: regular rate and regular rhythm Heart Sounds: normal S1 and normal S2; no murmur Vessels: femoral pulses present and radial pulses present; no JVD and no carotid bruit Extremities: no edema Gastrointestinal (Abdomen): Inspection/Auscultation: abdomen normal to inspection and normal bowel sounds; abdomen not distended Percussion/Palpation: abdomen soft; abdomen nontender, no guarding and abdomen not rigid Neurologic: CN's II-XI intact bilaterally and moves all extremities; no focal motor deficits Psychiatric: A+Ox3, euthymic affect Results & Data ([facility]) Vital Signs (Past 12 Hours) Vital Signs Temp Pulse Resp BP Pulse Ox O2 Del Method 10/24/22 06:30 36.4 C L 72 18 128/86 97 Room Air 10/24/22 03:02 36.5 C 78 18 115/80 97 Room Air 10/23/22 22:44 36.6 C 71 16 109/71 98 Room Air (1) CAD (coronary atherosclerotic disease) Associated angina: without angina Coronary Disease-Associated Artery/Lesion type: unspecified vessel or lesion type [place] vs. transplanted heart: [place] heart Qualified Code(s): I25.10 - Atherosclerotic heart disease of [place] coronary artery without angina pectoris
[2022-10-24] MEDS ORDERED: NICOTINE 21 MG/24 HR TDSY TD SCH (09:00)
[2022-10-24] MEDS ORDERED: ASPIRIN 81 MG ECTAB PO SCH (09:00)
[2022-10-24] MEDS ORDERED: ROSUVASTATIN CALCIUM 10 MG TAB PO SCH (09:00)
[2022-10-24] MEDS ORDERED: ISOSORBIDE MONO EXTENDED REL 30 MG TABCR PO SCH (09:00)
[2022-10-24] MEDS ORDERED: CLOPIDOGREL BISULFATE 75 MG TAB PO SCH (09:00)
[2022-10-24] MEDS ORDERED: lisinopril 40 MG TAB PO SCH (09:00)
[2022-10-24] MEDS ORDERED: amLODIPine BESYLATE 5 MG TAB PO SCH (09:00)
[2022-10-24 09:10] LABS: BUN Creatinine Ratio 10.6 (10-20); Creatinine Clr Calc Pharmacy 110.1 ml/min; Est GFR (African American) 123.5 ml/min; Est GFR (Non-African American) 106.6 ml/min
--- NOTE | 2022-10-24 10:12 | Discharge Summary ---
Date of Service October 24, 2022 Admission HPI Per Admitting Provider 57-year-old patient presents for cardiac catheterization due to anginal symptoms and equivocal stress test findings. Principal Diagnosis Coronary artery disease status post drug-eluting stent implantation to the left anterior descending artery. Discharge Exam Constitutional well developed and well nourished; no acute distress and not ill appearing ENUT Mallampati Class: II Respiratory normal respiratory effort; no respiratory distress Auscultation: no crackles, no rales, no rhonchi and no wheezes Cardiovascular Rate/Rhythm: regular rate and regular rhythm Heart Sounds: normal S1 and normal S2; no murmur Vessels: femoral pulses present and radial pulses present; no JVD and no carotid bruit Extremities: no edema Gastrointestinal (Abdomen) Inspection/Auscultation: abdomen normal to inspection and normal bowel sounds; abdomen not distended Percussion/Palpation: abdomen soft; abdomen nontender, no guarding and abdomen not rigid Neurologic CN's II-XI intact bilaterally and moves all extremities; no focal motor deficits Psychiatric A+Ox3, euthymic affect Discharge Data Allergies Allergy/AdvReac Type Severity Reaction Status Date / Time Penicillins Allergy Unknown Verified 05/31/19 11:50 Procedures Performed Operation Date: 10/23/22 08:00 Actual Procedures s Cineradiography w/Routine Exam - Cortez Narayan, DO p Cath, Left with Cors and Vent - Cortez Narayan, DO p Drug Eluting Stent SGl Vessel - Rashid Julian MD s IVUS Coronary Single Vessel - Rashid Julian MD Ordered Studies 10/23/22 07:04 CL Cath Imgs for PACS use only Routine 10/23/22 10:25 CL IVUS Coronary Single Vessel Routine Hospital Course (1) S/P drug eluting coronary stent placement: (2) CAD (coronary atherosclerotic disease): (3) Hyperlipidemia: (4) Current tobacco use: Plan Discussed importance of continuing dual antiplatelet therapy for minimum of 1 year. Patient voiced understanding. Other cardiovascular medications will be continued as previously ordered. Outpatient cardiology follow-up schedule 11/29/2022. Postprocedural activity restrictions reviewed. All questions answered to patient satisfaction. Discharge home today. Total Time Total Time Spent Total Time Spent (In Minutes): 30 Discharge Plan Discharge Items Patient Disposition: Home - Self-Care Reason For Visit: cp, cad Discharge Diagnosis: Status post cardiac catheterization with implantation of drug-eluting stent to the left anterior descending artery. 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 * Do not drive or operate any motorized equipment for the next three days. * Limit stair usage (2 or 3 trips a day only) for the next three days. * Do not lift anything heavier than 10 pounds for the next three days. * Do not engage in vigorous exercise or any sports for the next five days. * You may shower the day after your procedure, but do not immerse the area for three days. Cleanse the site gently with soap and water. SPECIAL CARE INSTRUCTIONS: * You may replace the pressure dressing or band-aid the morning after the procedure. * After your procedure, it is normal to have a small bruise or small lump at the site. Examine your site daily for any change in the bruise or lump, redness, swelling, drainage or numbness. Notify your doctor if any change. BLEEDING: * If there is a small amount of bleeding at the site, lie down and apply firm pressure with a clean cloth for ten minutes. When the bleeding stops, lie quietly keeping the procedure limb straight for six hours. Notify your doctor as soon as possible. * If the bleeding does not stop after ten minutes or if there is a large amount of bleeding or spurting, call 911 immediately. Continue to lie down and hold firm pressure until help arrives. SKIN IRRITATION: * You may experience some redness and/or swelling in the area where radiation was administered. If any skin irritation occurs, please contact your family physician. FOLLOW UP VISIT: Keep any scheduled doctor appointments. Follow-up with Rosemary Kuhn PA-C as scheduled 11/29/2022. Pending Studies at Discharge: No Stand-Alone Forms: My [employer], Smoking Cessation Medications and DC Order Prescriptions: Continued amlodipine 5 mg Tablet 5 mg PO DAILY rosuvastatin 10 mg Tablet 10 mg PO DAILY isosorbide mononitrate 30 mg Tablet Extended Release 24 Hr 15 mg PO DAILY metoprolol succinate 25 mg Tablet Extended Release 24 Hr 25 mg PO BID clopidogrel 75 mg Tablet 75 mg PO QAM Qty: 30 0RF lisinopril [Zestril] 40 mg Tablet 40 mg PO DAILY Qty: 30 0RF aspirin 81 mg Tablet,Delayed Release (Dr/Ec) 81 mg PO QAM Qty: 90 1RF nicotine [Nicoderm CQ] 21 mg/24 hr patch 24 hour 1 patch transdermal DAILY Qty: 14 1RF Discharge Orders: Discharge Order (Routine); Ordered 10/24/22 Ordered By: Cortez Narayan Admission Data Admit Date/Time: 10/23/22 10:19 Attending Provider: Cortez Narayan Admit Provider: Cortez Narayan Primary Care Provider: Evans Carmona
== END 2022-10-24 12:27 | disposition home or self-care (01) ==
LOC: CC 06:57 → 4W 06:57

== ENCOUNTER 2023-10-13 09:07 | Observation (INO) ==
--- OUTSIDE RECORDS SUMMARY | 2023-10-13 09:11 | External Medical Summary | Summary of Care ---
Author Name Unknown Organization [facility] Address [address] [place] [address] Phone [phone] Care Team Providers Care Movie Machine Operator Name Role Phone Evans Carmona MD Primary Care Provider [phone] Encounter Details Date Type Department Care Team (Late st Contact Info) Description 09/05/2023 Result Scan Unspecified Department Willam Schmitt, DO [address] [place] [address] <No scans attached> Allergies Active Allergy Reactions Criticality Noted Date Comments Nicardipine Hypotension 10/23/2022 Severe hypotension with administration of intra-arterial nicardipine and nitroglycerin during cardiac catheterization via right radial artery, [facility] Nitro[facility]in Hypotension 10/23/2022 Severe hypotension with administration of intra-arterial nicardipine and nitroglycerin during cardiac catheterization via right radial artery, [facility]23/22, [facility] Penicillins 12/29/2001 Pravastatin 06/07/2004 Pravachol--upset stomach documented as of this encounter (statuses as of 09/05/2023) Medications Medication Sig Dispensed Refills Start Date End Date Status LORATADINE 10 MG PO TABSIndications:Hive s One pill by mouth once a day as needed for hives 30 Tab 5 12/18/2012 Active Aspirin 81 MG Oral Tablet Delayed Release Take 1 Tablet by mouth in the morning. 0 05/02/2022 Active Nitroglycerin 0.4 MG Sublingual Tablet Sublingual (Nitrostat) Place 1 Tablet (0.4 mg) under the tongue every 5 minutes as needed for Pain, Chest. up to 3 doses in 15 minutes 25 Tablet 11 09/06/2022 Active Additional Information Patient not taking.Reported on 08/29/2023 Isosorbide Mononitrate ER 30 MG Oral Tablet Extended Release 24 Hour (Imdur) Take 0.5 Tablets by mouth in the morning. 30 Tablet 11 10/18/2022 Active Metoprolol Succinate ER 25 MG Oral Tablet Extended Release 24 Hour (toPROL XL) Take 1 Tablet by mouth in the morning and 1 Tablet before bedtime. 60 Tablet 11 10/18/2022 Active Citalopram Hydrobromide 20 MG Oral Tablet (CeleXA) Take 2 Tablets by mouth in the morning. 90 Tablet 3 03/25/2023 Active Clopidogrel Bisulfate 75 MG Oral Tablet (pLAVix) Take 1 Tablet by mouth in the morning. 90 Tablet 1 04/24/2023 Active amLODIPine Besylate 5 MG Oral Tablet (Norvasc) TAKE ONE TABLET BY MOUTH EVERY DAY IN THE MORNING. 90 Tablet 1 06/05/2023 Active Rosuvastatin Calcium 10 MG Oral Tablet (Crestor) TAKE ONE TABLET BY MOUTH EVERY DAY IN THE MORNING. 90 Tablet 1 06/05/2023 Active buPROPion HCl ER (XL) 150 MG Oral Tablet Extended Release 24 Hour (Wellbutrin XL)Indications:Depre ssion with anxiety Take 1 Tablet by mouth in the morning. 90 Tablet 3 07/01/2023 Active Losartan Potassium 50 MG Oral Tablet (Cozaar)Indications: HTN, goal below 130/80 Take 1 Tablet by mouth in the morning. 90 Tablet 3 07/01/2023 Active documented as of this encounter (statuses as of 09/05/2023) Active Problems Problem Noted Date Diagnosed Date Depression with anxiety 10/19/2022 Status post placement of implantable loop record er 07/05/2022 Overweight (BMI 25.0-29.9) 05/09/2022 Coronary artery disease of n ative artery of [place] heart with stable angina pectoris 05/06/2022 S/P drug eluting coronary stent placement 2021 Overview: Dr Julian in April of 2022 Dyslipidemia 09/27/2009 Overview: Per Lipid Taxonomy. HTN, goal below 130/80 08/26/2009 Overview: Modified per HTN Taxonomy. Tobacco use disorder 03/24/2003 documented as of this encounter (statuses as of 09/05/2023) Resolved Problems Problem Noted Date Diagnosed Date Resolved Date HTN, goal below 140/90 09/06/202210/14 Coronary artery disease invo lving coronary bypass graft of [place] heart with angina pectoris 09/06/2022 10/14/2022 Syncope and collapse 07/05/2022 022 Obesity, Class II, BMI 35-39 .9, isolated (see actual BMI) 05/06/2022 10/14/2022 Erectile dysfunction due to diseases classified elsewhere 05/06/2022 10/14/2022 Dyslipidemia, goal LDL below 70 12/26/2010 06/23/2023 Obesity, Class II, BMI 35-39 .9, isolated (see actual BMI) 04/03/2010 05/06/2022 Overview: Per Obesity Protocol, #19 LUMBAGO 02/12/2005 05/06/2022 BENIGN HYPERTENSION 08/20/2002 08/26/20 09 Overview: Modified per HTN Taxonomy. Mixed dyslipidemia 08/20/2002 9 Overview: Per Lipid Taxonomy. documented as of this encounter (statuses as of 09/05/2023) Immunizations Name Administration Dates Next Due H1N1 2009 Influenza, IM 10/26/2009 Pneumococcal Conjugate Vacci ne, 20-valent ([id number]) 07/05/2022 Pneumococcal Polysaccharide PPV23 (Pneumovax) 04/18/2009 SEASONAL INFLUENZA, PF, 6 M & Above, IM , (FLULAVAL or FLUZONE) 08/29/2023,09/06/2022 Seasonal Influenza, Split, I IV3, With Preserve, Inj 12/18/2012,07/13/2011,12/26/2010,10/26 TDAP (age 11 and older)(Adacel) 04/18/2009 Zoster Vaccine Recombinant (Shingrix) 07/05/2022 documented as of this encounter Social History Tobacco Use Types Packs/Day Years Used Date Smoking Tobacco: Every Day Cigarettes 1 18 Smokeless Tobacco: Former Comments:Cut down from 1 ppd to 0.5 ppd since Oct 2022 Alcohol Use Standard Drinks/Week Comments Yes 0 (1 standard drink = 0.6 oz pur e alcohol) PHQ-2 Answer Date Recorded PHQ Adult Total Score 0 07/05/2022 Hunger Vital Sign Answer Date Recorded Within the past 12 months, y ou worried that your food would run out before you got the money to buy more. Never true 07/05/20 22 Within the past 12 months, t he food you bought just didn't last and you didn't have money to get more. Never true 07/05/2022 Sex and Gender Information Value Date Recorded Sex Assigned at Not on file Gender Identity Not on file Sexual Orientation Not on file Job Start Date Occupation Industry Not on file Not on file Not on file documented as of this encounter Plan of Treatment Upcoming Encounters Date Type Department Care Team (Late st Contact Info) Description 12/13/2023 8:30 AM EST Cardiac Studies Cardiology, [facility] [address] [address] [facility] [address] [address] 12/30/2023 11:40 AM EDT Office Visit Family Practice [facility] [address] [address] Evnas Carmona MD [address] [place] [address] 02/28/2024 10:00 AM EDT Office Visit Cardiology, [facility] [address] [address] Rosemary Kuhn PA-C [address] [address] Health Maintenance Due Date Last Done Comments DISCUSS TOBACCO CESSATION (REFER TO SMARTSET #3265) 1965 Hepatitis B (1 of 3 - 3-dose series) 1965 COVID-19 Vaccine (#1) 1965 HIV Screening 1979 Hepatitis C Screening 1982 Colonoscopy 2009 Fecal Occult Blood Test 2009 Sigmoidoscopy 2009 DTaP,Tdap,and Td Vaccines (2 - Td or Tdap) 04/18/2019 04/18/2009 Zoster Vaccines (2 of 2) 08/30/2022 07/05/2022 Depression Screening 07/05/2023 07/05/2022 GFR 10/19/2023 10/19/2022, 08/21, 01/02/2019, Additional history exists Cologuard 08/18/2024 08/18/2021 Colorectal Cancer Screening 08/18/2024 Albumin/Creatinine Ratio 07/05/2025 07/05/2022, 06/2011 Diabetes Screening 10/19/2025 10/19/2022, 1 11/07/2021, 06/16/2016, Additional history exists Pneumococcal Vaccine: Pediatrics (0 to 5 Years) and At-Risk Patients (6 to 64 Years) Completed 07/05/2022, 04/18/2009 Influenza Vaccine (FLU shot) Completed 06/2023, 09/06/2022, 12/18/2012, Additional history exists GARDASIL-HPV IMMUNIZATION SERIES Aged Out No longer eligible based on patient's age to complete this topic MENINGOCOCCAL (MENACTRA/MENVEO) Aged Out No longer eligible based on patient's age to complete this topic documented as of this encounter Medical Devices Not on filedocumented as of this encounter Procedures Procedure Name Priority Date/Time Associated Diagnosis Comments CARDIOLOGY SCANNED RESULT 09/05/2023 documented in this encounter Results * CARDIOLOGY SCANNED RESULT (09/05/2023) 09/05/2023 Willam Schmitt DO OTHER documented in this encounter Care Teams Movie Machine Operator Relationship Specialty Start Date End Date Evans Carmona MD [address] [address] PCP - General Family Medicine 05/09/22 documented as of this encounter
--- OUTSIDE RECORDS SUMMARY | 2023-10-13 09:11 | External Medical Summary | Summary of Care ---
Author Name Unknown Organization [facility] Address [address] [place] [address] Phone [phone] Care Team Providers Care Business Services Tech Name Role Phone Evans Carmona MD Primary Care Provider [phone] Reason for Visit * Reason Onset Date Comments Follow Up 08/29/2023 Encounter Details Date Type Department Care Team (Late st Contact Info) Description 08/29/2023 Telephone Cardiology, [facility] [address] [facility] [address] [address] iWllam Schmitt, DO [address] [facility] [place] [address] Follow Up Allergies Active Allergy Reactions Criticality Noted Date Comments Nicardipine Hypotension 10/23/2022 Severe hypotension with administration of intra-arterial nicardipine and nitroglycerin during cardiac catheterization via right radial artery, 10/23/22, Katerina Luciano Nitroglycerin Hypotension 10/23/2022 Severe hypotension with administration of intra-arterial nicardipine and nitroglycerin during cardiac catheterization via right radial artery, 10/23/22, Katerina Luciano Penicillins 12/29/2001 Pravastatin 06/07/2004 Pravachol--upset stomach documented as of this encounter (statuses as of 09/03/2023) Medications Medication Sig Dispensed Refills Start Date [...] as of this encounter (statuses as of 09/03/2023) Active Problems Problem Noted Date Diagnosed Date Depression with anxiety 10/19/2022 Status post placement of implantable loop record er 07/05/2022 Overweight (BMI 25.0-29.9) 05/09/2022 Coronary artery disease of n ative artery of [place] heart with stable angina pectoris 05/06/2022 S/P drug eluting coronary stent placement 2021 Overview: Dr Julian in April of 2022 Dyslipidemia 09/27/2009 Overview: Per Lipid Taxonomy. HTN, goal below 130/80 08/26/2009 Overview: Modified per HTN Taxonomy. Tobacco use disorder 03/24/2003 documented as of this encounter (statuses as of 09/03/2023) Resolved Problems Problem Noted Date Diagnosed Date Resolved Date HTN, goal below 140/90 09/06/202210/14 Coronary artery disease invo lving coronary bypass graft of [place] heart with angina pectoris 09/06/2022 10/14/2022 Syncope [...] as of this encounter (statuses as of 09/03/2023) Immunizations Name Administration Dates Next Due H1N1 2009 Influenza, IM 10/26/2009 Pneumococcal Conjugate Vacci ne, 20-valent ([id number]) 07/05/2022 Pneumococcal Polysaccharide PPV23 (Pneumovax) 04/18/2009 SEASONAL [...] on file documented as of this encounter Miscellaneous Notes * Telephone Encounter - Telma Gomez RN - 09/03/2023 9:54 AM EST Transmission received. Remote transmission received and reviewed. Providers see scanned reports in scans tab. Telma Gomez RN * Telephone Encounter - Latia Rosario RN - 09/02/2023 4:33 PM EST Patient returned call to clinic. Spouse attempted to open wilmer to send transmission. Wilmer needing updated. Report wilmer is grayed out like it should be updating, but won't. Unable to openor do anything with wilmer at this time. Request submitted via [employer] for tech to reach out. Spouse only available between hours of 4-5PM to assist patient with sending transmission. * Telephone Encounter - Telma Gomez RN - 09/02/2023 10:51 AM EST Patient left message on home voice mail to call back for message from this nurse. Telma Gomez RN * Telephone Encounter - Liz Cabrera OSA - 08/29/2023 3:33 PM EST calling back unable to transfer to nurse, getting randee unity error. Please call pt back * Telephone Encounter - Telma Gomez RN - 08/29/2023 11:07 AM EST Patient left message on home voice mail to call back for message from Willam Schmitt DO . Telma Gomez RN * Telephone Encounter - Willam Schimtt DO - 08/29/2023 10:02 AM EST Pt missed most recent LINQ interrogation. Please reach out to him to arrange in person device checkor to performed a manual download. He states his would need the instructions as he is not goodwith technology. Willam Schmitt DO documented in this encounter Plan of Treatment Upcoming Encounters Date Type Department Care Team (Late st Contact Info) Description 12/13/2023 8:30 AM EST Cardiac Studies Cardiology, [facility] [address] [place] [address] [facility] [address] [address] 12/30/2023 11:40 AM EDT Office Visit Family Practice [facility] [address] [place] [address] Evans Carmona MD [address] [place] [address] 02/28/2024 10:00 AM EDT Office Visit Cardiology, [facility] [address] [place] [address] Rosemary Kuhn PA-C [address] [place] [address] Health Maintenance Due Date Last Done Comments DISCUSS TOBACCO CESSATION (REFER TO SMARTSET #329) 1965 Hepatitis B (1 of 3 - [...] Cancer Screening 08/18/2024 Albumin/Creatinine Ratio 07/05/2025 07/05/2022, 03/06/2011 Diabetes Screening 10/19/2025 10/19/2022, 1 11/07/2021, 06/16/2016, [...] Not on filedocumented as of this encounter Care Teams Business Services Tech Relationship Specialty Start Date End Date Evans Carmona MD [address] [address] PCP - General Family Medicine 05/09/22 documented as of this encounter
--- OUTSIDE RECORDS SUMMARY | 2023-10-13 09:11 | External Medical Summary | Summary of Care ---
Author Name Unknown Organization [facility] Address [address] [place] [address] Phone [phone] Care Team Providers Care Geological Survey Field Assistant Name Role Phone Evans Carmona MD Primary Care Provider [phone] Reason for Visit * Reason Comments eRx-Medication Refill Encounter Details Date Type Department Care Team (Late st Contact Info) Description 10/02/2023 Refill Cardiology, [facility] [address] [place] [address] Cori Benjamin, DO [address] [place] [address] Allergies Active Allergy Reactions Criticality Noted Date Comments Nicardipine Hypotension 10/23/2022 Severe hypotension with administration of intra-arterial nicardipine and nitroglycerin during cardiac catheterization via right radial artery, 10/23/22, Katerina Luciano MC Nitroglycerin Hypotension 10/23/2022 Severe hypotension with administration of intra-arterial nicardipine and nitroglycerin during cardiac catheterization via right radial artery, 10/23/22, Katerina Luciano MC Penicillins 12/29/2001 Pravastatin 06/07/2004 Pravachol--upset stomach documented as of this encounter (statuses as of 10/02/2023) Medications Medication Sig Dispensed Refills Start Date End Date Status LORATADINE 10 MG PO TABSIndications:H brayden One pill by mouth once a day [...] Additional Information Patient not taking.Reported on 08/29/2023 Metoprolol Succinate ER 25 MG Oral Tablet [...] Oral Tablet Extended Release 24 Hour (Wellbutrin XL)Indications:De pression with anxiety Take 1 Tablet by mouth in the morning. 90 Tablet 3 07/01/2023 Active Losartan Potassium 50 MG Oral Tablet (Cozaar)Indicatio ns:HTN, goal below 130/80 Take 1 Tablet by mouth in the morning. 90 Tablet 3 07/01/2023 Active Isosorbide Mononitrate ER 30 MG Oral Tablet Extended Release 24 Hour (Imdur) Take 0.5 Tablets by mouth in the morning. In the morning.. 45 Tablet 3 10/02/2023 Active Isosorbide Mononitrate ER 30 MG Oral Tablet Extended Release 24 Hour (Imdur) Take 0.5 Tablets by mouth in the morning. 30 Tablet 11 10/18/2022 Discontinued documented as of this encounter (statuses as of 10/02/2023) Active Problems Problem Noted Date Diagnosed Date Depression with anxiety 10/19/2022 Status post placement of implantable loop record er 07/05/2022 Overweight (BMI 25.0-29.9) 05/09/2022 Coronary artery disease of n ative artery of [place] heart with stable angina pectoris 05/06/2022 S/P drug eluting coronary stent placement 2021 Overview: Dr Julian in April of 2022 Dyslipidemia 09/27/2009 Overview: Per Lipid Taxonomy. HTN, goal below 130/80 08/26/2009 Overview: Modified per HTN Taxonomy. Tobacco use disorder 03/24/2003 documented as of this encounter (statuses as of 10/02/2023) Resolved Problems Problem Noted Date Diagnosed Date Resolved Date HTN, goal below 140/90 09/06/202210/14 Coronary artery disease invo lving coronary bypass graft of [place] heart with angina pectoris 09/06/2022 10/14/2022 Syncope [...] as of this encounter (statuses as of 10/02/2023) Immunizations Name Administration Dates Next Due H1N1 2009 Influenza, IM 10/26/2009 Pneumococcal Conjugate Vacci ne, 20-valent ([id number]) 07/05/2022 Pneumococcal Polysaccharide PPV23 (Pneumovax) 04/18/2009 Seasonal Influenza, PF, 6 M & above, IM , (FluLaval or Fluzone) 08/29/2023,09/06/2022 Seasonal Influenza, Split, I IV3, With [...] encounter Miscellaneous Notes * Telephone Encounter - Cori Benjamin DO - 10/02/2023 11:05 AM ESTSigned Prescriptions: Disp Refills Isosorbide Mononitrate ER 30 MG Oral Table*45 Tab*3 Sig: Take 0.5 Tablets by mouth in the morning. In the morning.. Authorizing Provider: CORI BENJAMIN * Telephone Encounter - Latia Mancilla COT - 10/02/2023 9:59 AM ESTPending Prescriptions: Disp Refills Isosorbide Mononitrate ER 30 MG Oral Table*45 Tab*3 Sig: Take 0.5 Tablets by mouth in the morning. In the morning.. * Telephone Encounter - Latia Mancilla COT - 10/02/2023 9:58 AM EST Did you pend patient's preferred pharmacy and medication before forwarding?yes Pharmacy: [id number] [address] [facility] Pending Prescriptions: Disp Refills Isosorbide Mononitrate ER 30 MG Oral Tabl*45 Tab*3 Sig: Take 0.5 Tablets by mouth in the morning. In the morning.. Last Visit: 08/29/2023 (in office), Visit date not found (telemedicine) Next Visit: 12/13/2023 If no future appointments scheduled, and last appointment is greater than a year ago, please schedule patient for a follow-up appointment Last date the medication was ordered: 10-18-2022 Is this request for a controlled substance?No Urine Drug Screen:No results found for this or any previous visit. Patient Phone Numbers Labs: Lab Results Component Value Date/Time CREAT 0.8 10/19/2022 02:00 PM CREAT 0.9 06/16/2016 12:00 AM CREAT 0.9 12/18/2012 04:20 PM CREAT 0.8 01/07/1997 09:40 AM POTASSIUM 5.2 (H) 10/19/2022 02:00 PM POTASSIUM 4.1 06/16/2016 12:00 AM POTASSIUM 4.4 12/18/2012 04:20 PM POTASSIUM 4.7 01/07/1997 09:40 AM TSH 0.87 09/07/2022 07:59 AM TSH 0.63 06/16/2016 12:00 AM TSH 1.35 07/13/2011 04:45 PM LDLCALC 52 09/07/2022 07:59 AM LDLCALC 69 06/16/2016 12:00 AM LDLCALC 119 12/27/2010 08:04 AM ALT 15 09/07/2022 07:59 AM ALT 30 12/27/2010 08:04 AM HGBA1C 5.7 09/07/2006 08:22 AM documented in this encounter Plan of Treatment Upcoming Encounters Date Type Department Care Team (Late st Contact Info) Description 12/13/2023 8:30 AM EST Cardiac Studies Cardiology, [facility] [address] [place] [address] [facility] [address] [place] [address] 12/30/2023 11:40 AM EDT Office Visit Family Practice [facility] [address] [place] [address] Evans Carmona MD [address] [place] [address] 02/28/2024 10:00 AM EDT Office Visit Cardiology, [facility] [address] [place] [address] Rosemary Kuhn PA-C [address] [place] [address] Health Maintenance Due Date Last Done Comments DISCUSS TOBACCO CESSATION (REFER TO SMARTSET #3162) 1965 Hepatitis B (1 of 3 - 3-dose series) 1965 COVID-19 Vaccine (#1) 1965 HIV Screening 1979 Hepatitis C Screening 1982 Colonoscopy 2009 Fecal Occult Blood Test 2009 Sigmoidoscopy 2009 DTaP,Tdap,and Td Vaccines (2 - Td or Tdap) 04/18/2019 04/18/2009 Zoster Vaccines (2 of 2) 08/30/2022 07/05/2022 Depression Screening 07/05/2023 07/05/2022 GFR 10/19/2023 10/19/2022, 11/05/2022, 01/02/2019, Additional history exists Cologuard 08/18/2024 08/18/2021 [...] filedocumented as of this encounter Care Teams Geological Survey Field Assistant Relationship Specialty Start Date End Date Evans Carmona MD [address] [facility] [place] [address] PCP - General Family Medicine 05/09/22 documented as of this encounter
--- OUTSIDE RECORDS SUMMARY | 2023-10-13 09:12 | External Medical Summary | Summary of Care ---
Author Name Unknown Organization [facility] Address [address] [place] [address] Phone [phone] Care Team Providers Care Supervisor Engraving Name Role Phone Gilbert Balbuena MD Primary Care Provider [phone] Reason for Visit * Reason Comments eRx-Medication Refill Encounter Details Date Type Department Care Team Description 06/04/2023 Refill Family Practice [facility] [address] [facility] [place] [id number] Gilbert Balbuena MD [address] [place] [address] Allergies Active Allergy Reactions Severity Noted Date Comments Nicardipine Hypotension 10/23/2022 Severe hypotension with administration of intra-arterial nicardipine and nitroglycerin during cardiac catheterization via right radial artery, 10/23/22, Katerina Luciano MC Nitroglycerin Hypotension 10/23/2022 Severe hypotension with administration of intra-arterial nicardipine and nitroglycerin during cardiac catheterization via right radial artery, 10/23/22, Katerina Luciano MC Penicillins 12/29/2001 Pravastatin 06/07/2004 Pravachol--upset stomach documented as of this encounter (statuses as of 06/05/2023) Medications Medication Sig Dispensed Refills Start Date End Date Status LORATADINE 10 MG PO TABSIndications:Hi ves One pill by mouth once a day [...] 15 minutes 25 Tablet 11 09/06/2022 Active Isosorbide Mononitrate ER 30 MG Oral [...] the morning. 90 Tablet 1 04/24/2023 Active Lisinopril 40 MG Oral Tablet TAKE ONE TABLET BY MOUTH EVERY DAY IN THE MORNING. 90 Tablet 1 06/05/2023 Active amLODIPine Besylate 5 MG Oral Tablet (Norvasc) TAKE ONE TABLET BY MOUTH EVERY DAY IN THE MORNING. 90 Tablet 1 06/05/2023 Active Rosuvastatin Calcium 10 MG Oral Tablet (Crestor) TAKE ONE TABLET BY MOUTH EVERY DAY IN THE MORNING. 90 Tablet 1 06/05/2023 Active amLODIPine Besylate 5 MG Oral Tablet (Norvasc) Take by mouth 1 Tablet in the morning. 90 Tablet 3 05/09/2022 06/05/2023 Discontinued Lisinopril 40 MG Oral Tablet Take by mouth 1 Tablet in the morning. 90 Tablet 3 05/09/2022 06/05/2023 Discontinued Rosuvastatin Calcium 10 MG Oral Tablet (Crestor) Take by mouth 1 Tablet in the morning. 90 Tablet 3 05/09/2022 06/05/2023 Discontinued documented as of this encounter (statuses as of 06/05/2023) Active Problems Problem Noted Date Depression with anxiety 10/19/2022 Status post placement of implantable loo p recorder 07/05/2022 Overweight (BMI 25.0-29.9) 05/09/2022 Coronary artery disease of n ative artery of [place] heart with stable angina pectoris 05/06/2022 S/P drug eluting coronary stent placemen t 05/06/2022 Overview: Dr Julian in April of 2022 Dyslipidemia, goal LDL below 70 12/27/19 11 Dyslipidemia 09/27/2009 Overview: Per Lipid Taxonomy. HTN, goal below 130/80 08/26/2009 Overview: Modified per HTN Taxonomy. Tobacco use disorder 03/24/2003 documented as of this encounter (statuses as of 06/05/2023) Resolved Problems Problem Noted Date Resolved Date HTN, goal below 140/90 09/06/2022 Coronary artery disease invo lving coronary bypass graft of [place] heart with angina pectoris 09/06/2022 10/14/2022 Syncope and collapse 07/05/2022 10/14/2022 Obesity, Class II, BMI 35-39.9, isolated (see ac tual BMI) 05/06/2022 10/14/2022 Erectile dysfunction due to diseases classified elsewhere 05/06/2022 10/14/2022 Obesity, Class II, BMI 35-39.9, isolated (see ac tual BMI) 04/03/2010 05/06/2022 Overview: Per Obesity Protocol, #19 LUMBAGO 02/12/2005 05/06/2022 BENIGN HYPERTENSION 08/20/2002 08/26/2009 Overview: Modified per HTN Taxonomy. Mixed dyslipidemia 08/20/2002 09/27/2009 Overview: Per Lipid Taxonomy. documented as of this encounter (statuses as of 06/05/2023) Immunizations Name Administration Dates Next Due H1N1 2009 Influenza, IM 10/26/2009 Pneumococcal Conjugate Vacci ne, 20-valent ([id number]) 07/05/2022 Pneumococcal Polysaccharide PPV23 (Pneumovax) 04/18/2009 Seasonal Influenza, Quadriva lent, No Preserve, 6 Mons & Above, IM 09/06/2022 Seasonal Influenza, Split, I IV3, With Preserve, [...] drink = 0.6 oz pur e alcohol) Food Insecurity Answer Date Recorded Within the past 12 months, y ou worried that your food would run out before you got money to buy more. Never true 07/05/2022 Within the past 12 months, t he food you bought just didn't last and you didn't have money to get more. Never true 07/05/2022 Sex Assigned at Date Recorded Not on file Job Start Date Occupation Industry Not on file Not on file Not on file documented as of this encounter Miscellaneous Notes * Telephone Encounter - Jun Lau [facility] - 06/05/2023 10:04 AM EDT Signed Prescriptions: Disp Refills Lisinopril 40 MG Oral Tablet 90 Tab*1 Sig: TAKE ONE TABLET BY MOUTH EVERY DAY IN THE MORNING.Authorizing Provider: GILBERT BALBUENA User: JUN LAU amLODIPine Besylate 5 MG Oral Tablet (Norv*90 Tab*1 Sig: TAKE ONE TABLET BY MOUTH EVERY DAY IN THE MORNING.Authorizing Provider: GILBERT BALBUENA User: JUN LAU Rosuvastatin Calcium 10 MG Oral Tablet (Cr*90 Tab*1 Sig: TAKE ONE TABLET BY MOUTH EVERY DAY IN THE MORNING.Authorizing Provider: GILBERT BALBUENA User: JUN LAU-------- documented in this encounter Plan of Treatment Upcoming Encounters Date Type Specialty Care Team Description 06/25/2023 Office Visit Family Medicine Gilbert Balbuena MD [address] [place] [address] 08/02/2023 Cardiac Studies Cardiology [facility] [address] [place] [address] Health Maintenance Due Date Last Done Comments DISCUSS TOBACCO CESSATION (REFER TO SMARTSET #3298) 1965 Hepatitis B (1 of 3 - 3-dose series) 1965 COVID-19 Vaccine (#1) 1965 HIV Screening 1979 Hepatitis C Screening 1982 Colonoscopy 2009 Fecal Occult Blood Test 2009 Sigmoidoscopy 2009 DTaP,Tdap,and Td Vaccines (2 - Td or Tdap) 04/18/2019 04/18/2009 Zoster Vaccines (2 of 2) 08/30/2022 07/05/2022 Influenza Vaccine (FLU shot) (#1) 2023 09/06/2022, 12/18/2012, 07/13/2011, Additional history exists Depression Screening, Annual for Pts 12 and Over 07/05/2023 07/05/2022 GFR 10/19/2023 10/19/2022, 08/21, 01/02/2019, Additional history exists Cologuard 08/18/2024 08/18/2021 Colorectal Cancer Screening 08/18/2024 Albumin/Creatinine Ratio 07/05/2025 07/05/2022, 0306/2011 Diabetes Screening 10/19/2025 10/19/2022, 1 11/07/2021, 06/16/2016, Additional history exists Pneumococcal Vaccine: Pediatrics (0 to 5 Years) and At-Risk Patients (6 to 64 Years) Completed 07/05/2022, 04/18/2009 GARDASIL-HPV IMMUNIZATION SERIES Aged Out No longer eligible based on patient's age to complete this topic MENINGOCOCCAL (MENACTRA/MENVEO) Aged Out No longer eligible based on patient's age to complete this topic documented as of this encounter Medical Devices Not on filedocumented as of this encounter Care Teams Supervisor Engraving Relationship Specialty Start Date End Date Gilbert Balbuena MD [address] [place] [address] PCP - General Family Medicine 05/09/22 documented as of this encounter
--- OUTSIDE RECORDS SUMMARY | 2023-10-13 09:12 | External Medical Summary | Summary of Care ---
Author Name Unknown Organization [facility] Address [address] [place] [address] Phone [phone] Care Team Providers Care Plug Wirer Name Role Phone Evans Carmona MD Primary Care Provider [phone] Reason for Visit * Reason Onset Date Comments Appointment 07/31/2023 Encounter Details Date Type Department Care Team Description 07/31/2023 Telephone Cardiology, [facility] [address] [place] [address] [facility] [address] [place] [address] Appointment Allergies Active Allergy Reactions Severity Noted Date [...] as of this encounter (statuses as of 07/31/2023) Medications Medication Sig Dispensed Refills Start Date End Date Status LORATADINE 10 MG PO TABSIndications:Hives One pill by mouth once a day [...] Oral Tablet Extended Release 24 Hour (Wellbutrin XL)Indications:Depress ion with anxiety Take 1 Tablet by mouth in the morning. 90 Tablet 3 07/01/2023 Active Losartan Potassium 50 MG Oral Tablet (Cozaar)Indications:HT N, goal below 130/80 Take 1 Tablet by mouth in the morning. 90 Tablet 3 07/01/2023 Active documented as of this encounter (statuses as of 07/31/2023) Active Problems Problem Noted Date Depression with anxiety 10/19/2022 Status post placement of implantable loo p recorder 07/05/2022 Overweight (BMI 25.0-29.9) 05/09/2022 Coronary artery disease of n ative artery of [place] heart with stable angina pectoris 05/06/2022 S/P drug eluting coronary stent placemen t 05/06/2022 Overview: Dr Julian in April of 2022 Dyslipidemia 09/27/2009 Overview: Per Lipid Taxonomy. HTN, goal below 130/80 08/26/2009 Overview: Modified per HTN Taxonomy. Tobacco use disorder 03/24/2003 documented as of this encounter (statuses as of 07/31/2023) Resolved Problems Problem Noted Date Resolved Date HTN, goal below 140/90 09/06/2022 Coronary artery disease invo lving coronary bypass graft of [place] heart with angina pectoris 09/06/2022 10/14/2022 Syncope and collapse 07/05/2022 10/14/2022 Obesity, Class II, BMI 35-39.9, isolated (see ac tual BMI) 05/06/2022 10/14/2022 Erectile dysfunction due to diseases classified elsewhere 05/06/2022 10/14/2022 Dyslipidemia, goal LDL below 70 12/26/2010 06/23/2023 Obesity, Class II, BMI 35-39.9, isolated (see ac tual BMI) 04/03/2010 05/06/2022 Overview: Per Obesity Protocol, #19 LUMBAGO 02/12/2005 05/06/2022 BENIGN HYPERTENSION 08/20/2002 08/26/2009 Overview: Modified per HTN Taxonomy. Mixed dyslipidemia 08/20/2002 09/27/2009 Overview: Per Lipid Taxonomy. documented as of this encounter (statuses as of 07/31/2023) Immunizations Name Administration Dates Next Due H1N1 2009 Influenza, IM 10/26/2009 Pneumococcal Conjugate Vacci ne, 20-valent ([id number]) 07/05/2022 Pneumococcal Polysaccharide PPV23 (Pneumovax) 04/18/2009 SEASONAL INFLUENZA, PF, 6 M & Above, IM , (FLULAVAL or FLUZONE) 09/06/2022 Seasonal Influenza, Split, I IV3, With [...] encounter Miscellaneous Notes * Telephone Encounter - CATHI Pelletier - 07/31/2023 3:52 PM EDT Good Afternoon, Patient called asking for 12:30 PM appointment. Message sent to have a level 4 add appointment. Thank you, CATHI Pelletier * Telephone Encounter - Latia Rosario RN - 07/31/2023 3:31 PM EDT Called, left message for patient to return call. Patient scheduled for device clinic 08/02/23. Upon return call, please see if able to come sooner this day. Could see patient at 8:15am; 12pm, or 12:30pm. MyChart also sent. documented in this encounter Plan of Treatment Upcoming Encounters Date Type Specialty Care Team Description 08/02/2023 Cardiac Studies Cardiology [facility] [address] [place] [address] 08/29/2023 Office Visit Cardiology Willam Schmitt DO [address] [place] [address] 12/30/2023 Office Visit Family Medicine Evans Carmona MD [address] [place] [address] Health Maintenance Due Date Last Done Comments [...] 09/06/2022, 12/18/2012, 07/13/2011, Additional history exists Depression Screening 07/05/2023 07/05/2022 GFR 10/19/2023 10/19/2022, [...] filedocumented as of this encounter Care Teams Plug Wirer Relationship Specialty Start Date End Date Evasn Carmona MD [address] [place] [address] PCP - General Family Medicine 05/09/22 documented as of this encounter
--- OUTSIDE RECORDS SUMMARY | 2023-10-13 09:12 | External Medical Summary | Summary of Care ---
Author Name Unknown Organization [facility] Address [address] [place] [address] Phone [phone] Care Team Providers Care Habitat Biologist Name Role Phone Gilbert Balbuena MD Primary Care Provider [phone] Reason for Visit * Reason Onset Date Comments Medication Refill 04/23/2023 Encounter Details Date Type Department Care Team Description 04/23/2023 Refill Family Practice [facility] [address] [place] [address] Gilbert Balbuena MD [address] [place] [address] Allergies Active Allergy Reactions Severity Noted Date [...] as of this encounter (statuses as of 04/24/2023) Medications Medication Sig Dispensed Refills Start Date End Date Status LORATADINE 10 MG PO TABSIndications:Hi ves One pill by mouth once a day as needed for hives 30 Tab 5 12/18/2012 Active Aspirin 81 MG Oral Tablet Delayed Release Take 1 Tablet by mouth in the morning. 0 05/02/2022 Active amLODIPine Besylate 5 MG Oral Tablet (Norvasc) Take by mouth 1 Tablet in the morning. 90 Tablet 3 05/09/2022 Active Lisinopril 40 MG Oral Tablet Take by mouth 1 Tablet in the morning. 90 Tablet 3 05/09/2022 Active Additional Information Patient taking differently:40 mg OralBID (08,1999), Reported on 03/25/2023 Rosuvastatin Calcium 10 MG Oral Tablet (Crestor) Take by mouth 1 Tablet in the morning. 90 Tablet 3 05/09/2022 Active Nitroglycerin 0.4 MG Sublingual Tablet Sublingual [...] the morning. 90 Tablet 1 04/24/2023 Active Clopidogrel Bisulfate 75 MG Oral Tablet (pLAVix) Take by mouth 1 Tablet in the morning. 90 Tablet 3 05/09/2022 3 Discontinue d(Refill) documented as of this encounter (statuses as of 04/24/2023) Active Problems Problem Noted Date Depression with anxiety 10/19/2022 Status post placement of implantable loo p recorder 07/05/2022 Overweight (BMI 25.0-29.9) 05/09/2022 Coronary artery disease of n ative artery of [place] heart with stable angina pectoris 05/06/2022 S/P drug eluting coronary stent placemen t 05/06/2022 Overview: Dr Julian in April of 2022 Dyslipidemia, goal LDL below 70 12/27/19 11 Dyslipidemia 09/27/2009 Overview: Per Lipid Taxonomy. HTN, goal below 130/80 08/26/2009 Overview: Modified per HTN Taxonomy. Tobacco use disorder 03/24/2003 documented as of this encounter (statuses as of 04/24/2023) Resolved Problems Problem Noted Date Resolved Date HTN, goal below 140/90 09/06/2022 Coronary artery disease invo lving coronary bypass graft of [place] heart with angina pectoris 09/06/2022 10/14/2022 Syncope [...] as of this encounter (statuses as of 04/24/2023) Immunizations Name Administration Dates Next Due H1N1 2009 Influenza, IM 10/26/2009 Pneumococcal Conjugate Vacci ne, 20-valent ([id number]) 07/05/2022 Pneumococcal Polysaccharide PPV23 (Pneumovax) 04/18/2009 Seasonal Influenza, Quadriva lent, No Preserve, 6 Mons & Above, IM 09/06/2022 Seasonal Influenza, Split, I IV3, With Preserve, Inj 12/18/2012,07/13/2011,12/26/2010,01/06 /2010 TDAP (age 11 and older)(Adacel) 04/18/2009 Zoster [...] encounter Miscellaneous Notes * Telephone Encounter - Wilmar Arroyo RPh - 04/24/2023 11:12 AM EDTSigned Prescriptions: Disp Refills Clopidogrel Bisulfate 75 MG Oral Tablet (p*90 Tab*1 Sig: Take 1Tablet by mouth in the morning.Authorizing Provider: GILBERT BALBUENAOrdersingh User: WILMAR ARROYO documented in this encounter Plan of Treatment Upcoming Encounters Date Type Specialty Care Team Description 06/25/2023 Office Visit Family Medicine Gilbert Balbuena MD [address] [place] [address] 08/02/2023 [facility] [address] [place] [address] Health Maintenance Due Date Last Done Comments DISCUSS TOBACCO CESSATION (REFER TO SMARTSET #7851) 1965 Hepatitis B (1 of 3 - [...] Cancer Screening 08/18/2024 Albumin/Creatinine Ratio 07/05/2025 07/05/2022, 03/0 06/2011 Diabetes Screening 10/19/2025 10/19/2022, 1 11/07/2021, [...] filedocumented as of this encounter Care Teams Habitat Biologist Relationship Specialty Start Date End Date Gilbert Balbuena MD [address] [place] [address] PCP - General Family Medicine 05/09/22 documented as of this encounter
--- OUTSIDE RECORDS SUMMARY | 2023-10-13 09:12 | External Medical Summary | Summary of Care ---
Author Name Unknown Organization [facility] Address [address] [place] [address] Phone [phone] Care Team Providers Care Solution Specialist Name Role Phone Evans Carmona MD Primary Care Provider [phone] Reason for Visit * Reason Comments Follow Up Pt here for 3 month follow up, states his believes his mood medication is not working Encounter Details Date Type Department Care Team Description 07/01/2023 Office Visit Family Practice [facility] [address] [place] [address] Evans Carmona MD [address] [place] [address] HTN, goal below 130/80*; Coronary artery disease of [place] artery of [place] heart with stable angina pectoris (HCC); Dyslipidemia; Status post placement of implantable loop recorder; S/P drug eluting coronary stent placement; Overweight (BMI 25.0-29.9); Tobacco use disorder; Depression with anxiety Allergies Active Allergy Reactions Severity Noted Date [...] as of this encounter (statuses as of 07/01/2023) Medications Medication Sig Dispensed Refills Start Date End Date Status LORATADINE 10 MG PO TABSIndications:Hiv es One pill by mouth once a day [...] Oral Tablet Extended Release 24 Hour (Wellbutrin XL)Indications:Depr ession with anxiety Take 1 Tablet by mouth in the morning. 90 Tablet 3 07/01/2023 Active Losartan Potassium 50 MG Oral Tablet (Cozaar)Indications :HTN, goal below 130/80 Take 1 Tablet by mouth in the morning. 90 Tablet 3 07/01/2023 Active Lisinopril 40 MG Oral Tablet TAKE ONE TABLET BY MOUTH EVERY DAY IN THE MORNING. 90 Tablet 1 06/05/2023 07/01/2023 Discontinued (Discharged) documented as of this encounter (statuses as of 07/01/2023) Active Problems Problem Noted Date Depression with anxiety 10/19/2022 Status post placement of implantable loo p recorder 07/05/2022 Overweight (BMI 25.0-29.9) 05/09/2022 Coronary artery disease of [place] artery of [place] heart with stable angina pectoris 05/06/2022 S/P drug eluting coronary stent placemen t 05/06/2022 Overview: Dr Julian in April of 2022 Dyslipidemia 09/27/2009 Overview: Per Lipid Taxonomy. HTN, goal below 130/80 08/26/2009 Overview: Modified per HTN Taxonomy. Tobacco use disorder 03/24/2003 documented as of this encounter (statuses as of 07/01/2023) Resolved Problems Problem Noted Date Resolved Date HTN, goal below 140/90 09/06/2022 Coronary artery disease invo lving coronary bypass graft of [place] heart with angina pectoris 09/06/2022 10/14/2022 Syncope [...] as of this encounter (statuses as of 07/01/2023) Immunizations Name Administration Dates Next Due H1N1 2009 Influenza, IM 10/26/2009 Pneumococcal Conjugate Vacci ne, 20-valent ([id number]) 07/05/2022 Pneumococcal Polysaccharide PPV23 (Pneumovax) 04/18/2009 Seasonal Influenza, PF, 6 mo ns & Above, IM , (Flulaval) 09/06/2022 Seasonal Influenza, Split, I IV3, With [...] on file documented as of this encounter Last Filed Vital Signs Vital Sign Reading Time Taken Comments Blood Pressure 110/72 07/01/2023 12:12 PM EDT Pulse 72 07/01/2023 12:12 PM EDT Temperature 36.6 C (97.8 F) 07/01/2023 12:12 PM E DT Respiratory Rate 18 07/01/2023 12:12 PM EDT Oxygen Saturation - - Inhaled Oxygen Concentration - - Weight 77.1 kg (170 lb) 07/01/2023 12:12 PM EDT Height 165.1 cm (5' 5") 07/01/2023 12:12 PM EDT Body Mass Index 28.29 07/01/2023 12:12 PM EDT documented in this encounter Progress Notes * Evans Carmona MD - 07/01/2023 10:53 PM EDT SUBJECTIVE: Silvestre L Osewalt is a 58 year old male. Chief Complaint Patient presents with Follow Up Pt here for 3 month follow up, states his believes his mood medication is not working HPI: Here for three month follow up. Continues to smoke in spite of CAD. He says his thinks his Celexa isn't helping. Admits mood is not great. No further cardiac issues. Has chronic dry cough. Likely due to kamlesh-I. Patient Active Problem List Diagnosis Code Tobacco use disorder F17.200 HTN, goal below 130/80 I10 Dyslipidemia E78.5 Coronary artery disease of [place] artery of [place] heart with stable angina pectoris (HCC) I25.118 S/P drug eluting coronary stent placement Z95.5 Overweight (BMI 25.0-29.9) E66.3 Status post placement of implantable loop recorder Z95.818 Depression with anxiety F41.8 Current Outpatient Medications Medication Sig Dispense Refill LORATADINE 10 MG PO TABS One pill by mouth once a day as needed for hives 30 Tab 5 Aspirin 81 MG Oral Tablet Delayed Release Take 1 Tablet by mouth in the morning. Nitroglycerin 0.4 MG Sublingual Tablet Sublingual (Nitrostat) Place 1 Tablet (0.4 mg) under the tongue every 5 minutes as needed for Pain, Chest. up to 3 doses in 15 minutes 25 Tablet 11 Isosorbide Mononitrate ER 30 MG Oral Tablet Extended Release 24 Hour (Imdur) Take 0.5 Tablets by mouth in the morning. 30 Tablet 11 Metoprolol Succinate ER 25 MG Oral Tablet Extended Release 24 Hour (toPROL XL) Take 1 Tablet by mouth in the morning and 1 Tablet before bedtime. 60 Tablet 11 Citalopram Hydrobromide 20 MG Oral Tablet (CeleXA) Take 2 Tablets by mouth in the morning. 90 Tablet 3 Clopidogrel Bisulfate 75 MG Oral Tablet (pLAVix) Take 1 Tablet by mouth in the morning. 90 Tablet 1 amLODIPine Besylate 5 MG Oral Tablet (Norvasc) TAKE ONE TABLET BY MOUTH EVERY DAY IN THE MORNING. 90 Tablet 1 Rosuvastatin Calcium 10 MG Oral Tablet (Crestor) TAKE ONE TABLET BY MOUTH EVERY DAY IN THE MORNING.90 Tablet 1 buPROPion HCl ER (XL) 150 MG Oral Tablet Extended Release 24 Hour (Wellbutrin XL) Take 1 Tablet by mouth in the morning. 90 Tablet 3 Losartan Potassium 50 MG Oral Tablet (Cozaar) Take 1 Tablet by mouth in the morning. 90 Tablet 3 No current facility-administered medications for this visit. Allergy: Review of patient's allergies indicates: Allergen Reactions Nicardipine Hypotension Severe hypotension with administration of intra-arterial nicardipine and nitroglycerin during cardiac catheterization via right radial artery, 10/23/22, [facility] Nitroglycerin Hypotension Severe hypotension with administration of intra-arterial nicardipine and nitroglycerin during cardiac catheterization via right radial artery, 10/23/22, [facility] Penicillins Pravastatin Pravachol--upset stomach OBJECTIVE: BP 110/72 (BP Site: Left Arm, BP Position: Sitting, BP Cuff Size: Regular) | Pulse 72 | Temp 36.6 C (97.8 F) (Tympanic) | Resp 18 | Ht 1.651 m (5' 5") | Wt 77.1 kg (170 lb) | BMI 28.29 kg/m | BSA 1.88 m Gen: nad Lungs: ctab Heart: rrr, no mrg Ext: no c/c/e Skin: no rashes ASSESSMENT AND PLAN: (I10) HTN, goal below 130/80 (primary encounter diagnosis) Plan: Losartan Potassium 50 MG Oral Tablet (Cozaar) -was having cough with lisinopril (I25.118) Coronary artery disease of [place] artery of [place] heart with stable angina pectoris (HCC) Plan: continue rx (E78.5) Dyslipidemia Plan: continue rx (Z95.818) Status post placement of implantable loop recorder Plan: noted (Z95.5) S/P drug eluting coronary stent placement Plan: continue rx (E66.3) Overweight (BMI 25.0-29.9) Plan: diet/exercise (F17.200) Tobacco use disorder Plan: educated; start wellbutrin (F41.8) Depression with anxiety Plan: buPROPion HCl ER (XL) 150 MG Oral Tablet Extended Release 24 Hour (Wellbutrin XL) -continue celexa Follow up as needed. No other complaints were offered at this time. Evans Carmona MD documented in this encounter Nursing Notes * Beverly Garcia LPN - 07/01/2023 12:12 PM EDT The patient has been properly identified by confirmation of name and date of . Chief Complaint Patient presents with Follow Up Pt here for 3 month follow up, states his believes his mood medication is not working documented in this encounter Plan of Treatment Upcoming Encounters Date Type Specialty Care Team Description 08/02/2023 Cardiac Studies Cardiology [facility] [address] [place] [address] 12/30/2023 Office Visit Family Medicine Evans Carmona MD [address] [place] [address] Health Maintenance Due Date Last Done Comments [...] Not on filedocumented as of this encounter Visit Diagnoses Diagnosis HTN, goal below 130/80- Primary Unspecified essential hypertension Coronary artery disease of [place] artery of [place] heart with stable angina pectoris (HCC) Dyslipidemia Other and unspecified hyperlipidemia Status post placement of implantable loop recorder Other specified cardiac device in situ S/P drug eluting coronary stent placement Postsurgical percutaneous transluminal coronary angioplasty status Overweight (BMI 25.0-29.9) Overweight Tobacco use disorder Depression with anxiety Dysthymic disorder documented in this encounter Care Teams Solution Specialist Relationship Specialty Start Date End Date Evans Carmona MD [address] [place] [address] PCP - General Family Medicine 05/09/22 documented as of this encounter
--- OUTSIDE RECORDS SUMMARY | 2023-10-13 09:12 | External Medical Summary | Summary of Care ---
Author Name Unknown Organization [facility] Address [address] [place] [address] Phone [phone] Care Team Providers Care Rubber Block Layer Name Role Phone Evans Carmona MD Primary Care Provider [phone] Reason for Visit * Reason Onset Date Comments Follow Up Medication Administration 08/29/2023 Flu an d/or Pneumo Inj Encounter Details Date Type Department Care Team (Late st Contact Info) Description 08/29/2023 9:30 AM EST Office Visit Cardiology, [facility] [address] [facility] [place] [id number] Willam Schmitt, [address] [place] [address] Need for prophylactic vaccination and inoculation against influenza* Allergies Active Allergy Reactions Criticality Noted Date [...] as of this encounter (statuses as of 08/29/2023) Medications Medication Sig Dispensed Refills Start Date [...] as of this encounter (statuses as of 08/29/2023) Active Problems Problem Noted Date Diagnosed Date Depression with anxiety 10/19/2022 Status post placement of implantable loop record er 07/05/2022 Overweight (BMI 25.0-29.9) 05/09/2022 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 HTN, goal below 130/80 08/26/2009 Overview: Modified per HTN Taxonomy. Tobacco use disorder 03/24/2003 documented as of this encounter (statuses as of 08/29/2023) Resolved Problems Problem Noted Date Diagnosed Date Resolved Date HTN, goal below 140/90 09/06/202210/14 Coronary artery disease invo lving coronary bypass graft of curyung heart with angina pectoris 09/06/2022 10/14/2022 Syncope [...] as of this encounter (statuses as of 08/29/2023) Immunizations Name Administration Dates Next Due H1N1 2009 Influenza, IM 10/26/2009 Pneumococcal Conjugate Vacci ne, 20-valent ([id number]) 07/05/2022 Pneumococcal Polysaccharide PPV23 (Pneumovax) 04/18/2009 SEASONAL INFLUENZA, PF, 6 M & Above, IM , (FLULAVAL or FLUZONE) 08/29/2023,09/06/2022 Seasonal Influenza, Split, I IV3, With Preserve, Inj 12/18/2012,07/13/2011,12/26/2010,10/26 TDAP (age 11 and older)(Adacel) 04/18/2009 Zoster Vaccine Recombinant (Shingrix) 07/05/2022 documented as of this encounter Social History Tobacco Use Types Packs/Day Years Used Date Smoking Tobacco: Every Day Cigarettes 1 18 Smokeless Tobacco: Former Tobacco Cessation:Ready to Q uit: Not Asked; Counseling Given: Not Answered Comments:Cut down from 1 ppd to 0.5 [...] Sign Reading Time Taken Comments Blood Pressure 128/94 08/29/2023 9:23 AM EST Pulse 96 08/29/2023 9:23 AM EST Temperature - - Respiratory Rate 18 08/29/2023 9:23 AM EST Oxygen Saturation - - Inhaled Oxygen Concentration - - Weight 79.1 kg (174 lb 4.8 oz) 08/29/2023 9:23 A M EST Height - - Body Mass Index 29.01 07/01/2023 12:12 PM EDT documented in this encounter Patient Instructions * Patient Instructions* Keiry Spence LPN - 08/29/2023 10:11 AM EST ~~PATIENT INSTRUCTIONS FOR FLU SHOT~~ Possible side effects of influenza vaccine, (flu shot), are usually mild and include: 1. Soreness or redness at injection site 2. Low grade fever 3. Body aches You may use Tylenol/Acetaminophen as needed for these symptoms. LET YOUR DOCTOR KNOW IMMEDIATELY IF YOU HAVE DIFFICULTY BREATHING OR SWALLOWING, EXPERIENCE ITCHINGOF FEET OR HANDS, HAVE SWELLING OF EYES, FACE OR INSIDE OF NOSE. documented in this encounter Progress Notes * Keiry Spence LPN - 08/29/2023 10:11 AM EST PRE - ADMINISTRATION DOCUMENTATION Are you experiencing any cold symptoms or fever? No Have you had Guillain-Sallis[place] Syndrome (an illness that causes paralysis) within the last 6 weeks? No Have you had the flu shot in the past? YES Have you ever had a reaction to the flu shot? No Keiry Spence LPN, 08/29/2023 10:11 AM Immunization Administration Documentation Time Out Procedure Performed: Yes Patient Identified (Ask Name/Date of ): Yes Does the patient have a fever greater than 101 degrees today? No Patient allergic to latex? No VFC Stock: No Immunization(s) verified: Yes, Immunization Name: Flu, VIS Sheet(s) given: Yes Verified Side and Site: Yes Verified Shot(s) with Parent(s)/Patient: Yes * Willam Schmitt DO - 08/29/2023 9:55 AM EST Cardiology F/U: 08/29/2023 Chief Complaint: follow up CAD, HTN, dyslipidemia History of Present Illness: Silvestre San is a 57 year old male here today for routine cardiology f/u. Last clinic evaluation in March, by Nan Kuhn PA-C. He notes that since his most recent stent that took place in October, he is overall felt better with an improvement in his previous symptoms of feeling a chest burning and stabbing sensation. Hecontinues to have shortness of breath with exertion that is relatively unchanged. He has been working on cutting back on his cigarette intake, but is still smoking 1 to 1.5 packs of cigarettes per day. He has taken sublingual nitroglycerin 3 to 4 times in the last few months, the most recent of whichwas about a month ago.This is similar to prior symptoms for which he had a nuclear stress in that was normal . History includes CAD S/P admission for chest pain and syncopal spell on 05/01/2022. He underwent Cath revealing a culprit 70% stenosis of the mid LAD for which patient underwent percutaneous coronary intervention and placement of a drug-eluting stent. Nonobstructive residual disease noted elsewhere as described in the report below. His echocardiogram performed 04/30/2022 revealed mild concentric left ventricular hypertrophy, normal resting wall motion, no significant valvular pathology. On further discussion with the patient he had been having waxing waning chest discomfort type episodes for 6months preceding the event. No arrhythmias were observed while admitted and observed on telemetry. Due to syncope, he underwent LINQ insertion. In Sep 2022 patient presented with complaints of intermittent burning sensation in his chest that occurs at rest or with exertion. This was concerning for crescendo angina. He underwent dobutamine stress echo and had reproducible chest pain at peak heart r ate. Echocardiogram was unremarkable. He did have ischemic EKG changes. He was subsequently sent for repeat cardiac cath on 10/23/[address] Narayan at [facility] demonstrating stenosis of the prox to mid LAD proximal to the prior stent, and treated with single ABEL overlapping the prior stent with good results. He was discharged on same cardiac meds including dual antiplatelet therapy for minimum of one year, isosorbide, amlodipine, metoprolol, lisinopril, and Crestor. Review of Systems: See HPI for pertinent positives. All others negative, other than those noted in HPI. 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 (HCC) I25.118 S/P drug eluting coronary stent placement Z95.5 Overweight (BMI 25.0-29.9) E66.3 Status post placement of implantable loop recorder Z95.818 Depression with anxiety F41.8 Past Surgical History: Procedure Laterality Date REMOVAL OF TONSILS, UNDER AGE 12 REPAIR INITIAL INGUINAL HERNIA REDUCIBLE AGE 5 OR MORE 1973 left Family History: Family History Problem Relation Age of Onset Heart Disorder Grandmother (Paternal) Heart Disorder Grandfather (Paternal) Heart Disorder Uncle (Unspecified) at 28 of a [place] Hypertension Brother Cancer Mother of lung ca 62 she was a smoker Diabetes Father Heart Disorder Father chf Stroke Father age 36 Hypertension Father Social History: Social History Tobacco Use Smoking status: Every Day Packs/day: 1.00 Years: 18.00 Additional pack years: 0.00 Total pack years: 18.00 Types: Cigarettes Smokeless tobacco: Former Tobacco comments: Cut down from 1 ppd to 0.5 ppd since Oct 2022 Substance Use Topics Alcohol use: Yes Drug use: No Allergies: Nicardipine, Nitroglycerin, Penicillins, and Pravastatin Medications: Current Outpatient Medications Medication Sig Dispense Refill LORATADINE 10 MG PO TABS One pill by mouth once a day as needed for hives 30 Tab 5 Aspirin 81 MG Oral Tablet Delayed Release Take 1 Tablet by mouth in the morning. Isosorbide Mononitrate ER 30 MG Oral Tablet [...] mouth in the morning. 90 Tablet 3 Nitroglycerin 0.4 MG Sublingual Tablet Sublingual (Nitrostat) Place 1 Tablet (0.4 mg) under the tongue every 5 minutes as needed for Pain, Chest. up to 3 doses in 15 minutes (Patient not taking: Reported on 08/29/2023) 25 Tablet 11 No current facility-administered medications for this visit. OBJECTIVE/PHYSICAL EXAMINATION: BP 128/94 | Pulse 96 | Resp 18 | Wt 79.1 kg (174 lb 4.8 oz) | BMI 29.01 kg/m | BSA 1.9 m General: no acute distress and stated age Eyes: conjunctiva are pink and non-injected, sclera clear Neck: normal jugular venous pulse, no hepatojugular reflux Chest: normal shape and normal respiratory effort Lungs: clear to auscultation and percussion Cardiac Exam: - regular heart sounds, no murmurs, rubs, or gallops Abdomen: abdomen soft, non-tender, no abnormal masses and no hepatosplenomegaly Musculoskeletal: no gait disturbance, no weakness Extremities: no edema and no cyanosis Neuro: grossly normal exam Psych: appropriate affect and insight. Data: Cardiac catheterization report reviewed dated October 23, 2022: Coronary Anatomy Dominant: Right Left Main (% Stenosis): Normal LAD (% Stenosis): Proximal (70%), Mid (patent stent) and Distal (Luminal irregularities, 20%) D1 (% Stenosis): Ostial (70%, small 1 mm vessel) D2 (% Stenosis): Normal D3 (% Stenosis): Ostial (50%, jailed by LAD stent) Circumflex (% Stenosis): Normal OM1 (% Stenosis): Normal RCA (% Stenosis): Proximal (luminal irregularities, 20%) and Mid (luminal irregularities, 20%) R PDA (% Stenosis): Proximal (luminal irregularities, 10%) R PL1 (% Stenosis): Normal R PL2 (% Stenosis): Normal Summary: 1. Successful PCI of proximal to mid LAD with single drug-eluting stent overlapping proximal aspectof prior mid LAD stent (2.75 x 28 mm Xience; post dilated with 3.5 NC) Summary of diagnostic cardiac catheterization 05/01/22: CAD Presentation: Non STEMI Coronary Anatomy Dominant: Right Left Main (% Stenosis): Normal LAD (% Stenosis): Proximal (20-30% diffuse), Mid (70% 'napkin ring' bifurcation lesion. SERG 2 distal LAD flow) and Distal (10-20% diffuse) D1 (% Stenosis): Ostial (60% small ,2 mm vessel) D2 (% Stenosis): Ostial (20%) D3 (% Stenosis): Ostial (50% associated with LAD bifurcation stenosis) Circumflex (% Stenosis): Proximal (10%) RCA (% Stenosis): Proximal (10-20% diffuse), Mid (20%) and Distal (10%) R PDA (% Stenosis): Proximal (20%) R PL1 (% Stenosis): Mid (20%) R PL2 (% Stenosis): Normal Summary of interventional cardiology report 05/01/22: [place] IVUS catheter placed across stenosis in LAD Pullback revealed severe, mildly calcified disease at takeoff of diagonal with moderate diffuse disease extending into proximal LAD Mid LAD stented with 2.75 x 22 mm Ahsan drug-eluting stent across takeoff of diagonal Stent post dilated with 3.5 NC balloon IVUS pullback revealed well expanded, well apposed stent with no apparent edge complications Flow-limiting ostial stenosis of jailed diagonal noted Diagonal rewired with helicopter pilot instructor 50 wire Ostial/proximal diagonal dilated through stent struts with 2.5 balloon to low atmospheres IC vasodilators administered for spasm Post procedure SERG 3 flow, stent well expanded, mild jailed residual stenosis with SERG-3 branch vessel flow. No apparent cardiac complications. Arterial Closure: TR band Summary: 1. Successful PCI of mid LAD with single drug-eluting stent (2.75 x 22 mm [place]; post dilated with 3.5 NC).-Angioplasty of jailed diagonal ostium with 2.5 balloon 2. Residual mild to moderate diffuse early-mid LAD disease by IVUS Latest Reference Range & Units 09/07/22 07:59 Triglycerides <=174 mg/dL 86 Cholesterol <200 mg/dL 129 Non-HDL Cholesterol <=159 mg/dL 69 HDL Cholesterol >39 mg/dL 60 LDL Cholesterol <=129 mg/dL 52 IMPRESSION: 57 year old male CAD - -S/P ABEL to the mid LAD on 05/01/22 -S/P ABEL to the prox LAD on 10/23/22 (overlapping with prior stent). Prior LAD stent was patent He is to be on aspirin 81 milligrams daily (lifelong therapy). He is to be on clopidogrel 75 milligrams daily for 1 year, Oct 2023- and perhaps longer given his history of disease progression after first PCI Continue amlodipine, lisinopril, isosorbide, metoprolol and statin. -negative nuclear stress test December 2022 for atypical chest pain Dyspnea -smoking cessation strongly encouraged. Still smoker 1-1.5 PPD. HTN, goal below 130/80 - continue amlodipine and lisinopril and metoprolol Dyslipidemia - continue rosuvastatin -controlled Tobacco use disorder -smoking cessation encouraged. Syncope in April 2022 S/P LINQ- no recurrence - no arrhythmias , with exception of sinus tachycardia at 158 bpm at 12 am, 1 am, on 02/25/23. That lasted 1 minute. Pt state he is often not sleeping at that time of day. He is due for repeat interrogation. Flu vaccine today. Arrange LINQ interrogation , remote or in person. Willam Schmitt DO Department of Cardiology This chart was completed in part utilizing [employer] Speech Voice Recognition Software. Grammatical errors, random word insertions, prounoun errors, and incomplete sentences are an occasional consequence of this system due to software limitations, ambient noise, and hardware issues. Any formal questions or concerns about the content, text, or information contained within the body of this dictation should be directly addressed to the provider for clarification. documented in this encounter Nursing Notes * Keiry Spence LPN - 08/29/2023 9:23 AM EST Examination Room: 12 Name: Silvestre San Date of : (1965) Reason for Visit: Follow up Interim Hospitalization(s): Denies Problems/Concerns: Denies Chest Pain/SOB: Denies chest pain at this time, SOB noted with exertion [facility] is a way you can talk to your provider online through e-mail. Would you like to sign up? I can activate it for you? ALREADY ACTIVE Patient was instructed to not get up on the exam table until directed and assisted by their provider; patient is to remain seated in the chair/ wheelchair/ exam table for fall prevention and safety reasons. Patient is aware to have assistance to step down off exam table with personnel. Patient voiced full comprehension of instructions. documented in this encounter Plan of Treatment Upcoming Encounters Date Type Department Care Team (Late st Contact Info) Description 12/13/2023 8:30 AM EST Cardiac Studies Cardiology, [address] [place] [address] [facility] [address] [place] [address] 12/30/2023 11:40 AM EDT Office Visit Family Practice [facility] [address] [place] [address] Evans Carmona MD [address] [place] [address] 02/28/2024 10:00 AM EDT Office Visit Cardiology, [facility] [address] [place] [address] Rosemary Kuhn PA-C [address] [place] [address] Health Maintenance Due Date Last Done Comments DISCUSS TOBACCO CESSATION (REFER TO [employer]ART[employer] #[id number]) 1965 Hepatitis B (1 of 3 - [...] as of this encounter Visit Diagnoses Diagnosis Need for prophylactic vaccination and inoculation against influenza- Primary documented in this encounter Care Teams Rubber Block Layer Relationship Specialty Start Date End Date Evans Carmona MD [address] [place] [address] PCP - General Family Medicine 05/09/22 documented as of this encounter"
[2023-10-13 09:37] LABS: Basophils # (auto) 0.05 K/uL (0.00-0.20); Basophils % (auto) 0.4 %; Eosinophils # (auto) 0.04 K/uL (0.00-0.50); Eosinophils % (auto) 0.4 %; Hematocrit (blood only) 40.8 % (42.0-52.0); Hemoglobin 14.1 g/dl (14.0-18.0); Immature Granulocytes # (auto) 0.05 K/uL (0.01-0.20); Immature Granulocytes % (auto) 0.4 %; Lymphocytes # (auto) 1.47 K/uL (1.20-3.40); Lymphocytes % (auto) 13.1 %; Mean Corpuscular Hemoglobin 32.6 pg (25.0-34.0); Mean Corpuscular Hgb Conc 34.6 g/dL (32.0-36.0); Mean Corpuscular Volume 94.2 fL (80.0-100.0); Mean Platelet Volume 9.9 fL (9.4-12.4); Monocytes # (auto) 1.01 K/uL (0.11-0.59); Neutrophils # (auto) 8.61 K/uL (1.40-6.50); Neutrophils % (auto) 76.7 %; Platelet Count 231 K/uL (130-400); RDW Coefficient of Variation 13.5 % (11.5-14.5); RDW Standard Deviation 46.8 fL (36.4-46.3); Red Blood Count 4.33 M/uL (4.70-6.10); White Blood Count 11.23 K/ul (4.8-10.8)
--- NOTE | 2023-10-13 09:40 | Emergency Department Note ---
History of Present Illness General Chief complaint: Chest Pain Stated complaint: RT SIDE CHEST PAIN SINCE 04:30 Time Seen by Provider: 10/13/23 09:16 History of Present Illness Maximum Pain Intensity: 6 58-year-old male presents emergency department with complaint of right rib pain that sharp in nature that started around 430 this morning. Patient states it has been intermittent since that time. Patient denies hemoptysis or shortness of breath he does state he was sweating this morning. Patient's had a prior MT with the left anterior descending stent, patient has not taken his morning medications yet. Patient denies any injury to his chest. Patient denies hemoptysis. Patient denies fever. Patient denies rash in the area of the chest pain. Patient states when he takes a deep breath the pain hurts in the right lateral aspect of the chest wall. Home Medications Medication Instructions Recorded Confirmed Type amlodipine 5 mg tablet 5 mg PO DAILY 05/31/19 10/23/22 History rosuvastatin 10 mg tablet 10 mg PO DAILY 05/31/19 10/23/22 History aspirin 81 mg tablet,delayed 81 mg PO QAM #90 tabs 05/02/22 10/23/22 Rx release clopidogrel 75 mg tablet 75 mg PO QAM #30 tabs 05/02/22 10/23/22 Rx lisinopril 40 mg tablet (Zestril) 40 mg PO DAILY #30 tabs 05/02/22 10/23/22 Rx nicotine 21 mg/24 hr daily 1 patch transdermal DAILY #14 ea 05/02/22 10/23/22 Rx transdermal patch (Nicoderm CQ) isosorbide mononitrate 30 mg 15 mg PO DAILY 10/23/22 10/23/22 History tablet,extended release 24 hr metoprolol succinate 25 mg 25 mg PO BID 10/23/22 10/23/22 History tablet,extended release 24 hr Allergies Allergy/AdvReac Type Severity Reaction Status Date / Time Penicillins Allergy Unknown Verified 05/31/19 11:50 Past Med/Surg History Medical History Lightheadedness Diaphoresis Syncope Near syncope Current tobacco use Hyperlipidemia CAD (coronary artery disease) Elevated troponin HTN (hypertension) Abnormal ECG Syncope Current tobacco use Dyslipidemia Essential hypertension Surgical History S/P drug eluting coronary stent placement S/P drug eluting coronary stent placement S/P tonsillectomy History of hernia surgery Social History Smoking Status: Current every day smoker Tobacco Type: Cigarettes Cigarettes Per Day: 2 PPD since late teens; Do You Dip or Chew Tobacco: No; Hx Alcohol Use: Yes Alcohol type: beer and wine Hx Substance Use: No Preferred Language: Romansh Communication Ability: Effective Steam Pan Sponger Required: No Beliefs That Will Affect Care: None marital status: Current Living Situation: Spouse current occupational status: employed current occupation: works for [employer] Feels Safe at Home: Yes Assistive Devices: None Review of Systems A total of 10 systems reviewed and were otherwise negative Cardiovascular: + chest pain Physical Exam Vital Signs Vital Signs - 24 hr 10/13/23 09:10 10/13/23 09:19 10/13/23 09:19 Temperature 36.7 C Temperature Source Temporal Artery Scan Pulse Rate 96 H Pulse Rate [Apical] 94 H Pulse Rate from SpO2 Sensor Respiratory Rate 20 25 H Respiratory Effort / Characteristics Non-Labored Respiratory Depth Normal Blood Pressure 125/75 Blood Pressure [Left Arm] 125/87 Blood Pressure Mean 91 Blood Pressure Mean [Left Arm] 99 Pulse Oximetry 97 94 Oxygen Delivery Method Room Air Room Air Room Air Sepsis Recent Fever Within 48 Hours No Sepsis New/Unexplained Change in Mental Status No Sepsis Action Taken by Nursing No Action Required 10/13/23 09:19 10/13/23 09:35 10/13/23 09:40 Temperature Temperature Source Pulse Rate 89 90 Pulse Rate [Apical] Pulse Rate from SpO2 Sensor 89 Respiratory Rate 31 H 26 H Respiratory Effort / Characteristics Respiratory Depth Blood Pressure Blood Pressure [Left Arm] Blood Pressure Mean Blood Pressure Mean [Left Arm] Pulse Oximetry 94 95 95 Oxygen Delivery Method Room Air Sepsis Recent Fever Within 48 Hours Sepsis New/Unexplained Change in Mental Status Sepsis Action Taken by Nursing 10/13/23 09:50 10/13/23 10:00 10/13/23 10:00 Temperature Temperature Source Pulse Rate 93 H 91 H Pulse Rate [Apical] Pulse Rate from SpO2 Sensor Respiratory Rate 30 H 31 H Respiratory Effort / Characteristics Respiratory Depth Blood Pressure 134/92 Blood Pressure [Left Arm] Blood Pressure Mean 106 Blood Pressure Mean [Left Arm] Pulse Oximetry 96 95 Oxygen Delivery Method Sepsis Recent Fever Within 48 Hours Sepsis New/Unexplained Change in Mental Status Sepsis Action Taken by Nursing 10/13/23 10:08 10/13/23 10:10 10/13/23 10:20 Temperature Temperature Source Pulse Rate 85 84 83 Pulse Rate [Apical] Pulse Rate from SpO2 Sensor 85 83 Respiratory Rate 18 33 H Respiratory Effort / Characteristics Respiratory Depth Blood Pressure Blood Pressure [Left Arm] Blood Pressure Mean Blood Pressure Mean [Left Arm] Pulse Oximetry 99 97 Oxygen Delivery Method Sepsis Recent Fever Within 48 Hours Sepsis New/Unexplained Change in Mental Status Sepsis Action Taken by Nursing 10/13/23 10:30 10/13/23 10:30 10/13/23 10:40 Temperature Temperature Source Pulse Rate 85 86 Pulse Rate [Apical] Pulse Rate from SpO2 Sensor 89 86 Respiratory Rate 31 H 32 H Respiratory Effort / Characteristics Respiratory Depth Blood Pressure 131/93 Blood Pressure [Left Arm] Blood Pressure Mean 97 Blood Pressure Mean [Left Arm] Pulse Oximetry 95 96 Oxygen Delivery Method Sepsis Recent Fever Within 48 Hours Sepsis New/Unexplained Change in Mental Status Sepsis Action Taken by Nursing 10/13/23 10:50 10/13/23 11:00 10/13/23 11:00 Temperature Temperature Source Pulse Rate 90 82 Pulse Rate [Apical] Pulse Rate from SpO2 Sensor 89 83 Respiratory Rate 21 31 H Respiratory Effort / Characteristics Respiratory Depth Blood Pressure 123/88 Blood Pressure [Left Arm] Blood Pressure Mean 98 Blood Pressure Mean [Left Arm] Pulse Oximetry 96 95 Oxygen Delivery Method Sepsis Recent Fever Within 48 Hours Sepsis New/Unexplained Change in Mental Status Sepsis Action Taken by Nursing 10/13/23 11:10 Temperature Temperature Source Pulse Rate 82 Pulse Rate [Apical] Pulse Rate from SpO2 Sensor 83 Respiratory Rate 35 H Respiratory Effort / Characteristics Respiratory Depth Blood Pressure Blood Pressure [Left Arm] Blood Pressure Mean Blood Pressure Mean [Left Arm] Pulse Oximetry 95 Oxygen Delivery Method Sepsis Recent Fever Within 48 Hours Sepsis New/Unexplained Change in Mental Status Sepsis Action Taken by Nursing GENERAL: Patient is awake alert in no acute distress patient is resting comfortably and showing no signs of anxiety EYES: The conjunctivae are clear. The pupils are round and reactive. EARS, NOSE, MOUTH AND THROAT: The nose is without any evidence of any deformity. Mucous membranes are moist. Tongue is midline. NECK: The neck is nontender and supple. RESPIRATORY: Normal respiratory effort is noted there is no evidence of wheezing rhonchi or rales Chest wall is nontender on the right side there is no obvious vesicular rash present CARDIOVASCULAR: Regular rate and rhythm noted there no murmurs rubs or gallops normal S1 normal S2. GASTROINTESTINAL: The abdomen is soft. Abdomen is nontender. BACK: No midline tenderness or or step-off noted range of motion in flexion extension as well as rotation no signs of muscle spasm noted MUSCULOSKELETAL/EXTREMITIES: There is no evidence of gross deformity full range of motion is noted in the hips and shoulders. Calves are nontender bilaterally SKIN: There is no obvious evidence of any rash. There are no petechiae, pallor or cyanosis noted. NEUROLOGIC: Patient is awake alert and oriented x3 strength is symmetric Course Reevaluation(s) Reevaluation #1: Patient is resting in no distress. Patient was started on IV cefepime. Time: 11:49 Consultations Consultation #1: Case was discussed with the [facility] hospitalist for admission for pleurisy pneumonia, multi lobar Time: 11:49 Administered Medications Discontinued Medications Cefepime HCl (Maxipime) 2,000 mg in 20 mls @ 5 mls/min IV NOW STA; Protocol Stop: 10/13/23 11:01 Last Admin: 10/13/23 11:08 Dose: 5 mls/min Documented By: ML Ioversol (Optiray 320 125ml) 83 ml IV ONCE ONE Stop: 10/13/23 10:19 Last Admin: 10/13/23 10:18 Dose: 83 ml Documented By: CAYDEN Medical Decision Making Medical Records Attestation: I reviewed the patient's medical records. Home Medications Current Medication List: was personally reviewed by ga Laboratory Data Attestation: I reviewed the patient's lab results. Lab results interpreted by me patient has an elevated D-dimer 10/13/23 09:21 10/13/23 09:21 Lab Results 10/13/23 10/13/23 10/13/23 Range/Units 09:20 09:21 10:26 WBC 11.23 H (4.8-10.8) K/ul RBC 4.33 L (4.70-6.10) M/uL Hgb 14.1 (14.0-18.0) g/dl Hct 40.8 L (42.0-52.0) % MCV 94.2 (80.0-100.0) fL MCH 32.6 (25.0-34.0) pg MCHC 34.6 (32.0-36.0) g/dL RDW Std Deviation 46.8 H (36.4-46.3) fL RDW Coeff of Bar 13.5 (11.5-14.5) % Plt Count 231 (130-400) K/uL MPV 9.9 (9.4-12.4) fL Immature Gran % (Auto) 0.4 % Neut % (Auto) 76.7 % Lymph % (Auto) 13.1 % Woodruff % (Auto) 9.0 % Eos % (Auto) 0.4 % Baso % (Auto) 0.4 % Neut # (Auto) 8.61 H (1.40-6.50) K/uL Lymph # (Auto) 1.47 (1.20-3.40) K/uL Woodruff # (Auto) 1.01 H (0.11-0.59) K/uL Eos # (Auto) 0.04 (0.00-0.50) K/uL Baso # (Auto) 0.05 (0.00-0.20) K/uL Immature Gran # (Auto) 0.05 (0.01-0.20) K/uL PT 10.4 (9.0-12.0) Seconds INR 0.9 (0.9-1.1) APTT 30 (21-31) Seconds PTT Ratio 1.1 D-Dimer 1300 H* (0-500) ug/L FEU Sodium 134 L (136-145) mmol/L Potassium 4.2 (3.5-5.1) mmol/L Chloride 105 (98-107) mmol/L Carbon Dioxide 21 (21-32) mmol/L Anion Gap 8 (3-11) BUN 11 (6-23) mg/dl Creatinine 0.66 (0.6-1.4) mg/dl Est Cr Clr Drug Dosing 119.5 ml/min Est GFR ( Amer) 122.7 ml/min Est GFR (Non-Af Amer) 105.8 ml/min BUN/Creatinine Ratio 16.7 (10-20) Glucose 127 H (70-99(Fasting)) mg/dl Lactate 1.1 (0.4-2.0) mmol/L Calcium 8.5 L (8.6-10.3) mg/dl Total Bilirubin 0.4 (0.2-1.0) mg/dl AST 15 (13-39) U/L ALT 12 (7-52) U/L Alkaline Phosphatase 73 (34-104) U/L Troponin I High Sens 4.0 (0-20) pg/ml Total Protein 7.0 (6.0-8.3) gm/dl Albumin 3.6 (3.4-5.0) gm/dl Globulin 3.4 (2.5-4.0) gm/dl Albumin/Globulin Ratio 1.1 (0.9-2) Lipase 40 (11-82) U/L Procalcitonin < 0.05 (0-0.5) ng/ml SARS-CoV-2 (PCR) NEGATIVE (Negative) Influenza Type A (PCR) Negative (Neg) Influenza Type B (PCR) Negative (Neg) RSV (RT-PCR) Negative (Neg) Imaging Data Attestation: I personally reviewed and interpreted this imaging study as follows: My Impression: Chest x-ray interpreted by me there is a masslike structure in the right hilum Radiologist's Impression: Chest X-Ray 10/13/23 09:16 XR chest 1V portable HISTORY: Chest pain, nonspecific COMPARISON: Chest 06/28/2022. FINDINGS: Interval development of a 4 cm right suprahilar focal masslike opacity. No pneumothorax. No pleural effusions. The heart is normal in size. The left lung is clear. No acute fractures identified. There is suggestion of a 3 cm focal density within the right lower lobe which is partially obscured by the cardiac monitoring leads. IMPRESSION: A 4 cm right suprahilar focal masslike opacity and a possible 3 cm right lower lobe focal density. These will be better assessed on the same day chest CT. ACT 112: Negative or not required by law. Electronically signed by: Jason Steele M.D. 10/13/2023 9:57 AM Chest CTA 10/13/23 09:23 CHEST CTA for PULMONARY ARTERIES CT DOSE: 646.1 mGy.cm HISTORY: Right-sided chest pain. TECHNIQUE: Multiaxial CT images of the chest were performed following the intravenous administration of contrast to evaluate the pulmonary arteries. 3D/Maximal intensity projection images were also obtained. Sagittal and coronal reformations were also reviewed. A dose lowering technique was utilized adhering to the principles of ALARA. COMPARISON STUDY: None. FINDINGS: No acute fractures. No suspicious lytic are blastic osseous lesions. A 3 mm right thyroid nodule. This does not meet CT criteria for follow-up. Limited views the upper abdomen demonstrate normal liver, spleen, and adrenal glands. Normal esophagus. The heart is normal in size. No evidence for right-sided heart strain. A few mildly enlarged right hilar lymph nodes measuring up to 1 cm in short axis diameter. There is a single prominent paratracheal lymph node measuring 11 mm in short axis diameter. No left hilar lymphadenopathy. No pleural or pericardial effusions. Mild aneurysmal dilatation of the ascending thoracic aorta measuring up to 4 cm in diameter. No evidence for an aortic dissection. There are moderate to severe coronary artery calcifications. No filling defects within the pulmonary arteries to suggest a pulmonary embolus. Mild central bronchial wall thickening. The central airways are patent. No pneumothorax. Mild emphysema. The left lung is clear. There is focal area of consolidation with surrounding groundglass opacities within the right upper lobe anteriorly best in image 142. This measures approximately 4 cm in size. There is associated interlobular septal thickening within the anterior right upper lobe. There is an additional focal irregular airspace opacity within the right middle lobe on image 92 measuring 3 cm. IMPRESSION: 1. No evidence for a pulmonary embolus. 2. There are 2 focal airspace opacities within the right upper lobe and right middle lobe as described above which correspond to the chest x-ray abnormalities. These favor a pneumonia. However, an underlying pulmonary lesion would be difficult to exclude. Therefore, one to 2 month chest x-ray or chest CT follow-up recommended to ensure complete resolution. 3. Mild emphysema. 4. Mildly enlarged right paratracheal and right hilar lymph nodes. These are likely reactive. ACT 112: Positive. There are findings on this exam that require communication between the performing entity and the patient following Patient Test Result Information Act ([place] Act 112) guidelines. Electronically signed by: Jason Steele M.D. 10/13/2023 10:47 AM ECG Data Attestation: I personally reviewed and interpreted this ECG as follows: Additional Comments: EKG interpreted by me normal sinus rhythm rate of 88, poor R wave progression the precordium no obvious ST segment elevation or depression, normal intervals normal axis Telemetry was ordered by me, interpreted as normal sinus rhythm rate of 88 MDM Narrative Medical decision making differential diagnosis includes angina, unstable angina, acute coronary syndrome, acute MT, pneumothorax, rib fracture, pulmonary embolism, pleurisy Plan is to check labs, EKG, chest x-ray I did review the cardiac cath from Dr. Julian of 2020 in which the patient had an LAD stent placed Patient had an elevated D-dimer, normal troponin, nonischemic EKG, a CT that shows multilobar pneumonia. Patient started on IV cefepime. Patient is in no respiratory distress and do not suspect the patient be in septic shock at the time of admission at 11:49 AM Impression & Plan Pneumonia, Pleurisy Discharge Plan Visit Data Chief Complaint: Chest Pain Stated Complaint: RT SIDE CHEST PAIN SINCE 04:30 ED Provider: Bg Castelan Discharge Problem: Pneumonia, Pleurisy Patient Disposition: Admitted As Inpatient Forms Stand Alone Forms: [facility] Prescriptions Prescriptions: No Action amlodipine 5 mg Tablet 5 mg PO DAILY rosuvastatin 10 mg Tablet 10 mg PO DAILY isosorbide mononitrate 30 mg Tablet Extended Release 24 Hr 15 mg PO DAILY metoprolol succinate 25 mg Tablet Extended Release 24 Hr 25 mg PO BID clopidogrel 75 mg Tablet 75 mg PO QAM Qty: 30 0RF lisinopril [Zestril] 40 mg Tablet 40 mg PO DAILY Qty: 30 0RF aspirin 81 mg Tablet,Delayed Release (Dr/Ec) 81 mg PO QAM Qty: 90 1RF nicotine [Nicoderm CQ] 21 mg/24 hr patch 24 hour 1 patch transdermal DAILY Qty: 14 1RF Referrals Referrals: Evans Carmona MD [Primary Care Provider] -
[2023-10-13 09:55] LABS: Albumin Globulin Ratio 1.1 (0.9-2); Albumin Level 3.6 gm/dl (3.4-5.0); BUN Creatinine Ratio 16.7 (10-20); Bilirubin,Total 0.4 mg/dl (0.2-1.0); Calcium 8.5 mg/dl (8.6-10.3); Creatinine Clr Calc Pharmacy 119.5 ml/min; Est GFR (African American) 122.7 ml/min; Est GFR (Non-African American) 105.8 ml/min; Globulin 3.4 gm/dl (2.5-4.0); Potassium 4.2 mmol/L (3.5-5.1)
--- NOTE | 2023-10-13 09:58 | XRay Report ---
XR chest 1V portable HISTORY: Chest pain, nonspecific COMPARISON: Chest 06/28/2022. FINDINGS: Interval development of a 4 cm right suprahilar focal masslike opacity. No pneumothorax. No pleural effusions. The heart is normal in size. The left lung is clear. No acute fractures identifie d. There is suggestion of a 3 cm focal density within the right lower lobe which is partially obscure d by the cardiac monitoring leads. IMPRESSION: A 4 cm right suprahilar focal masslike opacity and a possible 3 cm right lower lobe focal density. Th [place] will be better assessed on the same day chest CT. ACT 112: Negative or not required by law. Electronically signed by: Jason Steele M.D. 10/13/2023 9:57 AM
[2023-10-13 10:05] LABS: INR 0.9 (0.9-1.1); Partial Thromboplastin Ratio 1.1; Partial Thromboplastin Time 30 Seconds (21-31); Prothrombin Time 10.4 Seconds (9.0-12.0)
[2023-10-13 10:08] LABS: Influenza A virus by PCR Negative (Neg); Influenza B virus by PCR Negative (Neg); RSV by PCR Negative (Neg); SARS CoV2 RNA(COVID-19) Ceph NEGATIVE (Negative)
[2023-10-13 10:11] LABS: D Dimer 1300 ug/L FEU (0-500)
[2023-10-13] MEDS ORDERED: OPTIRAY 320 125ml IV ONE (10:18)
--- NOTE | 2023-10-13 10:49 | CT Scan Report ---
CHEST CTA for PULMONARY ARTERIES CT DOSE: 646.1 mGy.cm HISTORY: Right-sided chest pain. TECHNIQUE: Multiaxial CT images of the chest were performed following the intravenous administration of contrast to evaluate the pulmonary arteries. 3D/Maximal intensity projection images were also obta ined. Sagittal and coronal reformations were also reviewed. A dose lowering technique was utilized a dhering to the principles of ALARA. COMPARISON STUDY: None. FINDINGS: No acute fractures. No suspicious lytic are blastic osseous lesions. A 3 mm right thyroid n odule. This does not meet CT criteria for follow-up. Limited views the upper abdomen demonstrate norm al liver, spleen, and adrenal glands. Normal esophagus. The heart is normal in size. No evidence for right-sided heart strain. A few mildly enlarged right hilar lymph nodes measuring up to 1 cm in short axis diameter. There is a single prominent paratracheal lymph node measuring 11 mm in short axis darcy meter. No left hilar lymphadenopathy. No pleural or pericardial effusions. Mild aneurysmal dilatation of the ascending thoracic aorta measuring up to 4 cm in diameter. No evidence for an aortic dissecti on. There are moderate to severe coronary artery calcifications. No filling defects within the pulmon [place] arteries to suggest a pulmonary embolus. Mild central bronchial wall thickening. The central airw ays are patent. No pneumothorax. Mild emphysema. The left lung is clear. There is focal area of conso lidation with surrounding groundglass opacities within the right upper lobe anteriorly best in image 142. This measures approximately 4 cm in size. There is associated interlobular septal thickening wit hin the anterior right upper lobe. There is an additional focal irregular airspace opacity within the right middle lobe on image 92 measuring 3 cm. IMPRESSION: 1. No evidence for a pulmonary embolus. 2. There are 2 focal airspace opacities within the right upper lobe and right middle lobe as describe d above which correspond to the chest x-ray abnormalities. These favor a pneumonia. However, an under lying pulmonary lesion would be difficult to exclude. Therefore, one to 2 month chest x-ray or chest CT follow-up recommended to ensure complete resolution. 3. Mild emphysema. 4. Mildly enlarged right paratracheal and right hilar lymph nodes. These are likely reactive. ACT 112: Positive. There are findings on this exam that require communication between the performing entity and the patient following Patient Test Result Information Act ([place] Act 112) guidelines. Electronically signed by: Jason Steele M.D. 10/13/2023 10:47 AM
[2023-10-13] MEDS ORDERED: CEFEPIME 2,000 MG/20 ML VIAL IV STA (10:58)
--- NOTE | 2023-10-13 11:47 | History & Physical Report ---
Date of Service October 13, 2023 Assessment & Plan (1) Pleurisy: (2) COPD with emphysema: (3) Pneumonia: (4) CAD (coronary atherosclerotic disease): (5) S/P drug eluting coronary stent placement: (6) Current tobacco use: Plan Mr. Silvestre San is a 58 year old gentleman with past medical history notable for obstructive cad s/p darya mLAD and proxLAD, HTN, HLD, and chronic ongoing tobacco use who presented to the [facility] ED due to sudden onset right chest pain. Patient admitted for eval of pleuritic chest pain. Imaging with likely lobar pneumonia and emphysema. Pulm consulted with plan for antibiotics and inhalers. #Pleuritic chest pain #Abnormal CT Chest, likely lobar pneumonia on Emphysema Pain corresponds to lobar infiltrate on imaging Respiratory bio fire negative for influenza A/B, RSV as well as COVID-19, procalcitonin negative Pulmonary consulted given concern of unilateral predominance and pleurisy, no history of lung disease per patient -Recommendations discussed with Pulmonary -Start Anoro/stiolto inhaler daily -Follow up for op pft -Levofloxacin x 7 days -Will need repeat CT chest w/o contrast--if infiltrate still present can discuss if bronch necessary -Sputum culture and legionella/mycoplasma pending -Mucinex BID and flutter valve #Chronic, daily tobacco use > [id number] smoking history, currently smoking 3 packs a day Smoking cessation emphasized Nicotine patch #Obstructive CAD s/p DARYA to the mid LAD on 05/01/22 and DARYA to the prox LAD on 10/23/22 (overlapping with prior stent) #HTN -negative nuclear stress test December 2022 for atypical chest pain -Compliant with DAAPT regimen, Trop negative, symptoms not consistent with ACS/atypical -Continue plavix ASA -Continue Losartan 50mg daily (no longer on lisinopril), amlodipine 5mg daily, Metoprolol XL 25mg #Dyslipidemia - continue statin #History of Syncope in April 2022 S/P LINQ- no recurrence No further episodes, CTM #Depression Continue home Bupropion 150mg and citalopram 20mg DVT enoxparin Diet HH Admit med tele, 1-2 days likely Admission and Anticipated Discharge Date Admission Date: Time spent evaluating patient, direct bedside care, chart review, placing orders, interpretation of diagnostic studies, discussion with consultants, patient, and family members, as well as other required patient management activities is 60 minutes. History of Present Illness Chief Complaint: Pleurisy Primary Care Provider: Evans Carmona MD Mr. Silvestre San is a 58 year old gentleman with past medical history notable for obstructive cad s/p darya mLAD and proxLAD, HTN, HLD, and chronic ongoing tobacco use who presented to the [facility] ED due to sudden onset right chest pain. Patient states that at 4am this morning, he experienced a sharp, sudden stabbing sensation in right side. He states it is intermittent, but comes on suddenly and is brief, however, notably painful. He states this is not similar to any degree of prior chest pain he has experienced before. Patient experiences ongoing shortness of breath on exertion at baseline, but den ies any chest pain for months and has not used nitro. He reports having an "odd" nondescript pain back in December, prompting a stress test, but otherwise has been at his baseline state of health. He reports chronic 3pack per day tobacco use since roughly the age of 15. He endorses 2 years of night sweats, and unintentional weight loss per who states "he eats the same, but pants have gone from a tight 36 to loose 32." Patient notes long standing family history of cancer, with lung in mother, breast in maternal mother, and notable heart disease in paternal side. Patient reports compliance with all of his medications. He denies frequent alcohol use. In the ED, vital signs were stable with high 90s sats on room air. Afebrile. EKG revealed sinus ekg with no acute ischemic changes Imaging notable for no emboluls, +emphysema, mild right paratracheal LN and 2 focal airspace opacities RML/RUL "unable to exclude lesion" OSH chart reviewed no history of LDCT for comparison Labs with leukocytosis, DDImer 1300, slight hyponatremia 134, procal <0.05 ED interventions cefepime Allergies Allergy/AdvReac Type Severity Reaction Status Date / Time Penicillins Allergy Unknown Verified 05/31/19 11:50 Home Medications Medication Instructions Recorded Confirmed Type amlodipine 5 mg tablet 5 mg PO DAILY 05/31/19 10/13/23 History rosuvastatin 10 mg tablet 10 mg PO DAILY 05/31/19 10/13/23 History aspirin 81 mg tablet,delayed 81 mg PO QAM #90 tabs 05/02/22 10/13/23 Rx release clopidogrel 75 mg tablet 75 mg PO QAM #30 tabs 05/02/22 10/13/23 Rx nicotine 21 mg/24 hr daily 1 patch transdermal DAILY #14 ea 05/02/22 10/13/23 Rx transdermal patch (Nicoderm CQ) isosorbide mononitrate 30 mg 15 mg PO DAILY 10/23/22 10/13/23 History tablet,extended release 24 hr metoprolol succinate 25 mg 25 mg PO BID 10/23/22 10/13/23 History tablet,extended release 24 hr Past Med/Surg History Medical History Lightheadedness Diaphoresis Syncope Near syncope Current tobacco use Hyperlipidemia CAD (coronary artery disease) Elevated troponin HTN (hypertension) Abnormal ECG Syncope Current tobacco use Dyslipidemia Essential hypertension Surgical History S/P drug eluting coronary stent placement S/P drug eluting coronary stent placement S/P tonsillectomy History of hernia surgery Social History Smoking Status: Current every day smoker Tobacco Type: Cigarettes Cigarettes Per Day: 2 PPD since late teens; Do You Dip or Chew Tobacco: No; Hx Alcohol Use: Yes Alcohol type: beer, wine and hard liquor Hx Substance Use: No Preferred Language: [place] Communication Ability: Effective Insurance Underwriter Sales Required: No Beliefs That Will Affect Care: None marital status: Current Living Situation: Spouse current occupational status: employed current occupation: works for [employer] Feels Safe at Home: Yes Safety Concerns: Feels Safe At This Time Assistive Devices: Cane, Denture - Upper, Denture - Lower and Glasses Review of Systems Review of Systems: Constitutional: (-) fever/chills, (++) recent loss of weight, (-) appetite changes, (++) night sweats. Head: (-) headache, (-) dizziness. Eye: (-) blurring of vision, (-) double vision, (-) redness. Ear: (-) hearing loss, (-) discharge, (-) vertigo Nose: (-) discharge, (-) bleeding, (-) congestion, (-) post nasal drip. Throat: (-) sore throat, (-) hoarseness of voice, (-) odynophagia. Cardiovascular: (++) chest pain, (-) palpitations, (-) syncope, (-) orthopnea, (-) PND, (-) leg swelling. Respiratory: (+) shortness of breath, (-) cough, (-) wheezing, (-) hemoptysis. Neuro: (-) weakness in extremities, (-) numbness, (-) tingling, (-) tremor. Gastrointestinal: (-) belly pain, (-) belly distension, (-) nausea, (-) vomiting, (-) diarrhea, (-) constipation, (-) na, (-) hematemesis, (-) hematochezia, (-) bowel incontinence Genitourinary: (-) hematuria, (-) dysuria, (-) polyuria, (-) hesitancy, (-) frequency, (-) urinary incontinence. Musculoskeletal: (-) myalgia, (-) arthralgia. Skin: (-) rashes. Endocrine: (-) heat/cold intolerance. Psychiatry: (-) depression, (-) hallucination. Physical Exam Physical Exam: GENERAL APPEARANCE: AxOx4, generally well-appearing M, no acute distress. HEENT: NC, AT. MMM. EOMI, clear conjunctiva, oropharynx clear. NECK: Supple without lymphadenopathy. No stiffness or restricted ROM. HEART: Normal rate and regular rhythm, normal S1/S1, no m/r/g LUNGS: left side with good airway movement, right side rhonchi ABDOMEN: Soft, nontender, nondistended with good bowel sounds heard. BACK: No CVAT, no obvious deformity. EXTREMITIES: Without cyanosis, clubbing or edema. NEUROLOGICAL: Grossly nonfocal. Alert and oriented, moving all 4 extremities. CN not formally tested but appear grossly intact. Observed to ambulate with normal gait. Skin: Warm and dry without any rash. Results & Data Results & Data Vital Signs (Past 12 Hours) Vital Signs Temp Pulse Pulse Resp BP BP Pulse Ox 10/13/23 11:10 82 35 H 95 10/13/23 11:00 123/88 10/13/23 11:00 82 31 H 95 10/13/23 10:50 90 21 96 10/13/23 10:40 86 32 H 96 10/13/23 10:30 131/93 10/13/23 10:30 85 31 H 95 10/13/23 10:20 83 33 H 97 10/13/23 10:10 84 18 99 10/13/23 10:08 85 10/13/23 10:00 91 H 31 H 95 10/13/23 10:00 134/92 10/13/23 09:50 93 H 30 H 96 10/13/23 09:40 90 26 H 95 10/13/23 09:35 89 31 H 95 10/13/23 09:19 94 10/13/23 09:19 10/13/23 09:19 94 H 25 H 125/87 94 10/13/23 09:10 36.7 C 96 H 20 125/75 97 O2 Del Method 10/13/23 11:10 10/13/23 11:00 10/13/23 11:00 10/13/23 10:50 10/13/23 10:40 10/13/23 10:30 10/13/23 10:30 10/13/23 10:20 10/13/23 10:10 10/13/23 10:08 10/13/23 10:00 10/13/23 10:00 10/13/23 09:50 10/13/23 09:40 10/13/23 09:35 10/13/23 09:19 Room Air 10/13/23 09:19 Room Air 10/13/23 09:19 Room Air 10/13/23 09:10 Room Air Laboratory Results Short CBC 10/13/23 Range/Units 09:21 WBC 11.23 H (4.8-10.8) K/ul Hgb 14.1 (14.0-18.0) g/dl Hct 40.8 L (42.0-52.0) % Plt Count 231 (130-400) K/uL BMP 10/13/23 09:21 Sodium 134 L Potassium 4.2 Chloride 105 Carbon Dioxide 21 BUN 11 Creatinine 0.66 Glucose 127 H Calcium 8.5 L Liver Function 10/13/23 Range/Units 09:21 Total Bilirubin 0.4 (0.2-1.0) mg/dl AST 15 (13-39) U/L ALT 12 (7-52) U/L Alkaline Phosphatase 73 (34-104) U/L Albumin 3.6 (3.4-5.0) gm/dl Diagnostic Findings Cardiac catheterization report reviewed dated October 23, 2022: Summary: 1. Successful PCI of proximal to mid LAD with single drug-eluting stent overlapping proximal aspect of prior mid LAD stent (2.75 x 28 mm Xience; post dilated with 3.5 NC) Summary of diagnostic cardiac catheterization 05/01/22: Summary of interventional cardiology report 05/01/22: 1. Successful PCI of mid LAD with single drug-eluting stent (2.75 x 22 mm Ahsan; post dilated with 3.5 NC).-Angioplasty of jailed diagonal ostium with 2.5 balloon 2. Residual mild to moderate diffuse earlymid LAD disease by IVUS Chest X-Ray 10/13/23 09:16 XR chest 1V portable HISTORY: Chest pain, nonspecific COMPARISON: Chest 06/28/2022. FINDINGS: Interval development of a 4 cm right suprahilar focal masslike opacity. No pneumothorax. No pleural effusions. The heart is normal in size. The left lung is clear. No acute fractures identified. There is suggestion of a 3 cm focal density within the right lower lobe which is partially obscured by the cardiac monitoring leads. IMPRESSION: A 4 cm right suprahilar focal masslike opacity and a possible 3 cm right lower lobe focal density. These will be better assessed on the same day chest CT. ACT 112: Negative or not required by law. Electronically signed by: Jason Steele M.D. 10/13/2023 9:57 AM Chest CTA 10/13/23 09:23 CHEST CTA for PULMONARY ARTERIES CT DOSE: 646.1 mGy.cm HISTORY: Right-sided chest pain. TECHNIQUE: Multiaxial CT images of the chest were performed following the intravenous administration of contrast to evaluate the pulmonary arteries. 3D/Maximal intensity projection images were also obtained. Sagittal and coronal reformations were also reviewed. A dose lowering technique was utilized adhering to the principles of ALARA. COMPARISON STUDY: None. FINDINGS: No acute fractures. No suspicious lytic are blastic osseous lesions. A 3 mm right thyroid nodule. This does not meet CT criteria for follow-up. Limited views the upper abdomen demonstrate normal liver, spleen, and adrenal glands. Normal esophagus. The heart is normal in size. No evidence for right-sided heart strain. A few mildly enlarged right hilar lymph nodes measuring up to 1 cm in short axis diameter. There is a single prominent paratracheal lymph node measuring 11 mm in short axis diameter. No left hilar lymphadenopathy. No pleural or pericardial effusions. Mild aneurysmal dilatation of the ascending thoracic aorta measuring up to 4 cm in diameter. No evidence for an aortic dissection. There are moderate to severe coronary artery calcifications. No filling defects within the pulmonary arteries to suggest a pulmonary embolus. Mild central bronchial wall thickening. The central airways are patent. No pneumothorax. Mild emphysema. The left lung is clear. There is focal area of consolidation with surrounding groundglass opacities within the right upper lobe anteriorly best in image 142. This measures approximately 4 cm in size. There is associated interlobular septal thickening within the anterior right upper lobe. There is an additional focal irregular airspace opacity within the right middle lobe on image 92 measuring 3 cm. IMPRESSION: 1. No evidence for a pulmonary embolus. 2. There are 2 focal airspace opacities within the right upper lobe and right middle lobe as described above which correspond to the chest x-ray abnormalities. These favor a pneumonia. However, an underlying pulmonary lesion would be difficult to exclude. Therefore, one to 2 month chest x-ray or chest CT follow-up recommended to ensure complete resolution. 3. Mild emphysema. 4. Mildly enlarged right paratracheal and right hilar lymph nodes. These are likely reactive. ACT 112: Positive. There are findings on this exam that require communication between the performing entity and the patient following Patient Test Result Information Act ([place] Act 112) guidelines. Electronically signed by: Jason Steele M.D. 10/13/2023 10:47 AM Medications Administered Home Medications Medication Instructions Recorded Confirmed Last Taken amlodipine 5 mg tablet 5 mg PO DAILY 05/31/19 10/13/23 1 Day Ago ~10/12/23 rosuvastatin 10 mg tablet 10 mg PO DAILY 05/31/19 10/13/23 1 Day Ago ~10/12/23 aspirin 81 mg tablet,delayed 81 mg PO QAM #90 tabs 05/02/22 10/13/23 1 Day Ago release ~10/12/23 clopidogrel 75 mg tablet 75 mg PO QAM #30 tabs 05/02/22 10/13/23 1 Day Ago ~10/12/23 nicotine 21 mg/24 hr daily 1 patch transdermal DAILY #14 ea 05/02/22 10/13/23 Unknown transdermal patch (Nicoderm CQ) isosorbide mononitrate 30 mg 15 mg PO DAILY 10/23/22 10/13/23 1 Day Ago tablet,extended release 24 hr ~10/12/23 metoprolol succinate 25 mg 25 mg PO BID 10/23/22 10/13/23 1 Day Ago tablet,extended release 24 hr ~10/12/23 Active Medications Generic Name Dose Route Start Last Admin Trade Name Freq PRN Reason Stop Dose Admin Aspirin 81 mg 10/13/23 15:01 10/13/23 16:10 Aspirin 81 Mg Ectab PO 11/12/23 15:00 81 mg QAM LILA Administration Clopidogrel Bisulfate 75 mg 10/13/23 15:01 10/13/23 16:10 Clopidogrel Bisulfate 75 Mg Tab PO 11/12/23 15:00 75 mg QAM LILA Administration Enoxaparin Sodium 40 mg 10/13/23 15:01 10/13/23 16:10 Enoxaparin Inj 40 Mg/0.4 Ml Syr SQ 11/12/23 15:00 40 mg Q24H LILA Administration Levofloxacin/Dextrose 750 mg in 150 mls @ 100 mls/hr 10/13/23 18:00 10/13/23 17:07 Levaquin/D5w IV 10/20/23 17:59 100 mls/hr DAILY@1800 LILA Administration Protocol Nicotine 21 mg 10/13/23 16:00 10/13/23 16:10 Nicotine 21 Mg/24 Hr Tdsy TD 11/12/23 15:59 21 mg DAILY@1600 LILA Administration Umeclidinium/Vilanterol 1 puffs 10/13/23 16:15 10/13/23 17:06 Umeclidinium/Vilanterol 62.5/25mcg 7 Puffs/Inhaler INH 11/12/23 16:14 1 puffs DAILY LILA Administration (4) CAD (coronary atherosclerotic disease) Associated angina: without angina Coronary Disease-Associated Artery/Lesion type: unspecified vessel or lesion type [place] vs. transplanted heart: [place] heart Qualified Code(s): I25.10 - Atherosclerotic heart disease of [place] coronary artery without angina pectoris
[2023-10-13] MEDS ORDERED: NITROGLYCERIN SL 0.4 MG/TAB TAB SL PRN (15:01)
[2023-10-13] MEDS ORDERED: ENOXAPARIN INJ 40 MG/0.4 ML SYR SQ SCH (15:01)
[2023-10-13] MEDS ORDERED: ACETAMINOPHEN 325 MG TAB PO PRN (15:01)
[2023-10-13] MEDS ORDERED: PNEUMOCOCCAL VACCINE (PCV20) 20-VAL CONJ-DIP CRM/PF 0.5 ML SYR IM ONE (15:12)
--- NOTE | 2023-10-13 15:24 | Pulmonary Consultation ---
Date of Consultation October 13, 2023 Assessment & Plan (1) Pleurisy: (2) Pneumonia: (3) Current tobacco use: (4) COPD with emphysema: Plan CT chest 10/13/2023 personally reviewed: Centrilobular emphysema appreciated bilaterally Consolidative process appreciated in the right upper lobe extending into the pleura, infiltrate in the right middle lobe lateral segment Minimal mediastinal lymphadenopathy -- Pleuritic chest pain Likely secondary to multilobar pneumonia Respiratory bio fire negative for influenza A/B, RSV as well as COVID-19 Procalcitonin negative -- COPD with emphysema Or any inhalers at home Recommend Anoro/Stiolto to be used on a daily basis on discharge Will benefit from PFT as an outpatient --Current smoker > [id number] smoking history, currently smoking 3 packs a day Parts of quitting explained to the patient in depth Plan: Patient seems to have multilobar PNA. The best approach for him would be to have repeat CT chest without contrast in 6-8 weeks. If he still have persistent infiltrate then Bronchoscopy can be considered. QTc 395, give levofloxacin for total of 7 days as patient is allergic to penicillin. Follow-up urine Legionella antigen and mycoplasma IgM Sputum culture Mucinex with flutter valve This was discussed with primary team Please note the above document was generated using voice recognition software. It may contain grammatical, syntax or spelling errors.Any formal questions or concerns about the content, text or information contained within the body of this dictation should be directly addressed to the provider for clarification. History of Present Illness Attending Physician: Arelis Pretty MD History of Present Illness 58-year-old male presented to hospital with complaints of shortness of breath and right-sided pleuritic chest pain Past medical history: Coronary artery disease, hypertension, dyslipidemia Pulmonary consulted for abnormal chest CT At the time of examination patient was not in any respiratory distress, he was saturating 96% on room air with respiratory rate in the mid teens He stated that earlier today he woke up in the morning with right-sided chest pain which was worse when taking deep breath. He has been coughing more lately compared to before. Not bringing up any phlegm. Denies any hemoptysis. Denies any difficulty bringing up the phlegm. Does have subjective chills. No fever Has chronic headache unchanged. No blurry vision Has chronic diarrhea which has not changed in frequency or intensity. 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 Currently is on disability for couple of years Pets: Dogs and cats at home. No birds reported nearby Allergies: Denies Lung cancer: No history of lung cancer in the family Allergies Allergy/AdvReac Type Severity Reaction Status Date / Time Penicillins Allergy Unknown Verified 05/31/19 11:50 Home Medications Medication Instructions Recorded Confirmed Type amlodipine 5 mg tablet 5 mg PO DAILY 05/31/19 10/23/22 History rosuvastatin 10 mg tablet 10 mg PO DAILY 05/31/19 10/23/22 History aspirin 81 mg tablet,delayed 81 mg PO QAM #90 tabs 05/02/22 10/23/22 Rx release clopidogrel 75 mg tablet 75 mg PO QAM #30 tabs 05/02/22 10/23/22 Rx nicotine 21 mg/24 hr daily 1 patch transdermal DAILY #14 ea 05/02/22 10/23/22 Rx transdermal patch (Nicoderm CQ) isosorbide mononitrate 30 mg 15 mg PO DAILY 10/23/22 10/23/22 History tablet,extended release 24 hr metoprolol succinate 25 mg 25 mg PO BID 10/23/22 10/23/22 History tablet,extended release 24 hr Patient History Medical History Lightheadedness Diaphoresis Syncope Near syncope Current tobacco use Hyperlipidemia CAD (coronary artery disease) Elevated troponin HTN (hypertension) Abnormal ECG Syncope Current tobacco use Dyslipidemia Essential hypertension Surgical History S/P drug eluting coronary stent placement S/P drug eluting coronary stent placement S/P tonsillectomy History of hernia surgery Social History Smoking Status: Current every day smoker Tobacco Type: Cigarettes Cigarettes Per Day: 2 PPD since late teens; Do You Dip or Chew Tobacco: No; Hx Alcohol Use: Yes Alcohol type: beer, wine and hard liquor Hx Substance Use: No Preferred Language: [place]i Communication Ability: Effective Company Secretary Required: No Beliefs That Will Affect Care: None marital status: Current Living Situation: Spouse current occupational status: employed current occupation: works for [employer] Feels Safe at Home: Yes Safety Concerns: Feels Safe At This Time Assistive Devices: Cane, Denture - Upper, Denture - Lower and Glasses Review of Systems 2 Review of Systems: All systems reviewed & are unremarkable except as noted in HPI & below Physical Exam 2 Physical Exam: Constitutional: No acute distress HEENT: EOMI, PERRLA Respiratory system: Decreased air entry bilaterally, no wheeze, no rhonchi, positive crackles bilaterally CVS: S1-S2 positive, no murmurs or gallops Abdomen: Soft, nontender, nondistended, positive bowel sounds x4, obese Extremities: +2 pulses bilaterally radialis/ dorsalis pedis, no cyanosis, no edema Neuro: Awake alert oriented x3 Psych: Normal mood and affect G/U: No Cantu Skin: no rashes, warm and dry Lymphatic: no cervical or axillary lymphadenopathy Results & Data Results & Data Vital Signs (Past 12 Hours) Vital Signs Temp Pulse Pulse Resp BP BP Pulse Ox 10/13/23 15:04 36.8 C 82 18 145/77 H 97 10/13/23 14:05 83 23 137/87 95 10/13/23 13:13 137/99 10/13/23 13:00 90 16 131/107 H 95 10/13/23 12:10 87 21 95 10/13/23 12:00 118/92 10/13/23 12:00 85 19 95 10/13/23 11:50 86 29 H 94 10/13/23 11:40 85 35 H 96 10/13/23 11:30 116/79 10/13/23 11:30 85 22 92 10/13/23 11:20 92 H 22 96 10/13/23 11:10 82 35 H 95 10/13/23 11:00 123/88 10/13/23 11:00 82 31 H 95 10/13/23 10:50 90 21 96 10/13/23 10:40 86 32 H 96 10/13/23 10:30 131/93 10/13/23 10:30 85 31 H 95 10/13/23 10:20 83 33 H 97 10/13/23 10:10 84 18 99 10/13/23 10:08 85 10/13/23 10:00 91 H 31 H 95 10/13/23 10:00 134/92 10/13/23 09:50 93 H 30 H 96 10/13/23 09:40 90 26 H 95 10/13/23 09:35 89 31 H 95 10/13/23 09:19 94 10/13/23 09:19 10/13/23 09:19 94 H 25 H 125/87 94 10/13/23 09:10 36.7 C 96 H 20 125/75 97 O2 Del Method 10/13/23 15:04 Room Air 10/13/23 14:05 10/13/23 13:13 10/13/23 13:00 Room Air 10/13/23 12:10 10/13/23 12:00 10/13/23 12:00 10/13/23 11:50 10/13/23 11:40 10/13/23 11:30 10/13/23 11:30 10/13/23 11:20 10/13/23 11:10 10/13/23 11:00 10/13/23 11:00 10/13/23 10:50 10/13/23 10:40 10/13/23 10:30 10/13/23 10:30 10/13/23 10:20 10/13/23 10:10 10/13/23 10:08 10/13/23 10:00 10/13/23 10:00 10/13/23 09:50 10/13/23 09:40 10/13/23 09:35 10/13/23 09:19 Room Air 10/13/23 09:19 Room Air 10/13/23 09:19 Room Air 10/13/23 09:10 Room Air Laboratory Results 10/13/23 09:21 10/13/23 09:21 PG Care Time/CCT Total # of Minutes Spent Total Time Spent with Patient: Total time spent is greater than 50% in coordination of care (as documented) at patient's floor/unit and/or counseling patient: Coding Level of Care Code 32476 INT INP/OBS CARE 3/75MIN Diagnoses Pleurisy R09.1 Pneumonia J18.9 Current tobacco use Z72.0 COPD with emphysema J43.9
[2023-10-13] MEDS ORDERED: NICOTINE 21 MG/24 HR TDSY TD SCH (16:00)
[2023-10-13] MEDS: CLOPIDOGREL BISULFATE 75 MG TAB PO SCH (16:10)
[2023-10-13] MEDS: ASPIRIN 81 MG ECTAB PO SCH (16:10)
[2023-10-13] MEDS: UMECLIDINIUM/VILANTEROL 62.5/25MCG 7 PUFFS/INHALER INH SCH (17:06)
[2023-10-13] MEDS ORDERED: levoFLOXacin/D5W 750 MG/150 ML BAG IV SCH (18:00)
[2023-10-13] MEDS: guaiFENesin 600 MG TABCR PO SCH (19:39)
[2023-10-13] MEDS: METOPROLOL SUCC 25MG EXT REL TAB PO SCH (19:39)
[2023-10-14] MEDS ORDERED: levoFLOXacin 750 MG TAB PO SCH
[2023-10-14] MEDS ORDERED: guaiFENesin 600 MG TABCR PO SCH
[2023-10-14 05:58] LABS: Hematocrit (blood only) 38.1 % (42.0-52.0); Hemoglobin 13.2 g/dl (14.0-18.0); Mean Corpuscular Hemoglobin 32.3 pg (25.0-34.0); Mean Corpuscular Hgb Conc 34.6 g/dL (32.0-36.0); Mean Corpuscular Volume 93.2 fL (80.0-100.0); Mean Platelet Volume 10.2 fL (9.4-12.4); Platelet Count 203 K/uL (130-400); RDW Coefficient of Variation 13.1 % (11.5-14.5); RDW Standard Deviation 44.5 fL (36.4-46.3); Red Blood Count 4.09 M/uL (4.70-6.10); White Blood Count 8.85 K/ul (4.8-10.8)
[2023-10-14 06:12] LABS: BUN Creatinine Ratio 13.6 (10-20); Calcium 8.5 mg/dl (8.6-10.3); Creatinine Clr Calc Pharmacy 119.6 ml/min; Est GFR (African American) 122.7 ml/min; Est GFR (Non-African American) 105.8 ml/min; Magnesium 1.8 mg/dl (1.7-2.4); Phosphorus 2.6 mg/dl (2.5-4.9); Potassium 3.8 mmol/L (3.5-5.1)
--- NOTE | 2023-10-14 07:44 | Pulmonology Progress Note ---
Date of Service October 14, 2023 Assessment & Plan (1) Pleurisy: (2) Pneumonia: (3) Current tobacco use: (4) COPD with emphysema: Plan CT chest 10/13/2023 personally reviewed: Centrilobular emphysema appreciated bilaterally Consolidative process appreciated in the right upper lobe extending into the pleura, infiltrate in the right middle lobe lateral segment Minimal mediastinal lymphadenopathy -- Pleuritic chest pain --> resolved Likely secondary to multilobar pneumonia Respiratory bio fire negative for influenza A/B, RSV as well as COVID-19 Procalcitonin negative -- COPD with emphysema Or any inhalers at home Recommend Anoro/Stiolto to be used on a daily basis on discharge Will benefit from PFT as an outpatient --Current smoker > [id number] smoking history, currently smoking 3 packs a day Importance of quitting explained to the patient in depth Plan: Repeat CT chest without contrast in 6-8 weeks. If he still have persistent infiltrate then Bronchoscopy can be considered. QTc 395, complete the course of levofloxacin for total of 10 days as patient is allergic to penicillin. Patient educated regarding the risk of tendinitis while being on levofloxacin Follow-up urine Legionella antigen and mycoplasma IgM Sputum culture Mucinex with flutter valve Discharge patient on Anoro or Stiolto, outpatient PFTs Case discussed with Dr. Mccarty Please note the above document was generated using voice recognition software. It may contain grammatical, syntax or spelling errors.Any formal questions or concerns about the content, text or information contained within the body of this dictation should be directly addressed to the provider for clarification. Admission and Anticipated Discharge Date Admission Date: October 13, 2023 Subjective Patient seen and examined at bedside. No acute distress, no adverse events overnight The chest pain has resolved. No shortness of breath Denies any nausea or vomiting Fair appetite. Has been bringing up phlegm. No hemoptysis Review of Systems 2 Review of Systems: All systems reviewed & are unremarkable except as noted in Subjective Physical Exam 2 Physical Exam: Constitutional: No acute distress HEENT: EOMI, PERRLA Respiratory system: Decreased air entry bilaterally, no wheeze, no rhonchi, positive crackles bilaterally CVS: S1-S2 positive, no murmurs or gallops Abdomen: Soft, nontender, nondistended, positive bowel sounds x4, obese Extremities: +2 pulses bilaterally radialis/ dorsalis pedis, no cyanosis, no edema Neuro: Awake alert oriented x3 Psych: Normal mood and affect G/U: No Cantu Skin: no rashes, warm and dry Lymphatic: no cervical or axillary lymphadenopathy Results & Data Results & Data Vital Signs (Past 12 Hours) Vital Signs Temp Pulse Pulse Resp BP Pulse Ox O2 Del Method 10/14/23 04:55 36.7 C 80 20 146/87 H 95 Room Air 10/14/23 04:47 Room Air 10/14/23 00:57 37.0 C 89 20 156/102 H 96 Room Air 10/13/23 22:01 83 Laboratory Results 10/14/23 04:25 10/14/23 04:25 PG Care Time/CCT Total # of Minutes Spent Total Time Spent with Patient: Total time spent is greater than 50% in coordination of care (as documented) at patient's floor/unit and/or counseling patient: Coding Level of Care Code 50948 SUB INP/OBS CARE 2/35MIN Diagnoses Pleurisy R09.1 Pneumonia J18.9 Current tobacco use Z72.0 COPD with emphysema J43.9
[2023-10-14] MEDS: METOPROLOL SUCC 25MG EXT REL TAB PO SCH (08:33)
[2023-10-14] MEDS: guaiFENesin 600 MG TABCR PO SCH (08:34)
[2023-10-14] MEDS: ASPIRIN 81 MG ECTAB PO SCH (08:36)
[2023-10-14] MEDS: CLOPIDOGREL BISULFATE 75 MG TAB PO SCH (08:36)
[2023-10-14] MEDS: UMECLIDINIUM/VILANTEROL 62.5/25MCG 7 PUFFS/INHALER INH SCH (08:37)
[2023-10-14] MEDS ORDERED: NICOTINE 21 MG/24 HR TDSY TD SCH (09:00)
[2023-10-14] MEDS ORDERED: CITALOPRAM 20 MG TAB PO SCH (09:00)
[2023-10-14] MEDS ORDERED: amLODIPine BESYLATE 5 MG TAB PO SCH (09:00)
[2023-10-14] MEDS ORDERED: buPROPion XL 150 MG TABCR PO SCH (09:00)
[2023-10-14] MEDS ORDERED: ROSUVASTATIN CALCIUM 10 MG TAB PO SCH (09:00)
[2023-10-14] MEDS ORDERED: ISOSORBIDE MONO EXTENDED REL 30 MG TABCR PO SCH (09:00)
--- NOTE | 2023-10-14 10:56 | Discharge Summary ---
Date of Service October 14, 2023 Admission HPI Per Admitting Provider Mr. Silvestre San is a 58 year old gentleman with past medical history notable for obstructive cad s/p darya mLAD and proxLAD, HTN, HLD, and chronic ongoing tobacco use who presented to the [facility] ED due to sudden onset right chest pain. Patient states that at 4am this morning, he experienced a sharp, sudden stabbing sensation in right side. He states it is intermittent, but comes on suddenly and is brief, however, notably painful. He states this is not similar to any degree of prior chest pain he has experienced before. Patient experiences ongoing shortness of breath on exertion at baseline, but denies any chest pain for months and has not used nitro. He reports having an "odd" nondescript pain back in December, prompting a stress test, but otherwise has been at his baseline state of health. He reports chronic 3pack per day tobacco use since roughly the age of 15. He endorses 2 years of night sweats, and unintentional weight loss per who states "he eats the same, but pants have gone from a tight 36 to loose 32." Patient notes long standing family history of cancer, with lung in mother, breast in maternal mother, and notable heart disease in paternal side. Patient reports compliance with all of his medications. He denies frequent alcohol use. In the ED, vital signs were stable with high 90s sats on room air. Afebrile. EKG revealed sinus ekg with no acute ischemic changes Imaging notable for no emboluls, +emphysema, mild right paratracheal LN and 2 focal airspace opacities RML/RUL "unable to exclude lesion" OSH chart reviewed no history of LDCT for comparison Labs with leukocytosis, DDImer 1300, slight hyponatremia 134, procal <0.05 ED interventions cefepime Admission Exam Per Admitting Provider GENERAL APPEARANCE: AxOx4, generally well-appearing M, no acute distress. HEENT: NC, AT. MMM. EOMI, clear conjunctiva, oropharynx clear. NECK: Supple without lymphadenopathy. No stiffness or restricted ROM. HEART: Normal rate and regular rhythm, normal S1/S1, no m/r/g LUNGS: left side with good airway movement, right side rhonchi ABDOMEN: Soft, nontender, nondistended with good bowel sounds heard. BACK: No CVAT, no obvious deformity. EXTREMITIES: Without cyanosis, clubbing or edema. NEUROLOGICAL: Grossly nonfocal. Alert and oriented, moving all 4 extremities. CN not formally tested but appear grossly intact. Observed to ambulate with normal gait. Skin: Warm and dry without any rash. Principal Diagnosis Multilobular pneumonia Discharge Exam GENERAL: WD/WN M in NAD HEENT: NC, AT. MMM. EOMI, clear conjunctiva, oropharynx clear. NECK: Supple HEART: Normal rate and regular rhythm, normal S1/S1, no m/r/g LUNGS: CTAB, no wheezing or rhonchi ABDOMEN: Soft, nontender, nondistended, + bowel sounds BACK: No CVAT, no obvious deformity. EXTREMITIES: moves extremities NEUROLOGICAL: Alert and oriented, answers appropriately, speech fluent, no facial asymmetry, moves extremities Skin: Warm and dry Discharge Data Allergies Allergy/AdvReac Type Severity Reaction Status Date / Time Penicillins Allergy Unknown Verified 05/31/19 11:50 Consultations 10/13/23 11:46 ED Decision to Admit Stat 10/13/23 15:01 Consult Pulmonology Routine Ordered Studies 10/13/23 09:23 CT angio chest PE protocol Stat FINDINGS: No acute fractures. No suspicious lytic are blastic osseous lesions. A 3 mm right thyroid nodule. This does not meet CT criteria for follow-up. Limited views the upper abdomen demonstrate normal liver, spleen, and adrenal glands. Normal esophagus. The heart is normal in size. No evidence for right-sided heart strain. A few mildly enlarged right hilar lymph nodes measuring up to 1 cm in short axis diameter. There is a single prominent paratracheal lymph node measuring 11 mm in short axis diameter. No left hilar lymphadenopathy. No pleural or pericardial effusions. Mild aneurysmal dilatation of the ascending thoracic aorta measuring up to 4 cm in diameter. No evidence for an aortic dissection. There are moderate to severe coronary artery calcifications. No filling defects within the pulmonary arteries to suggest a pulmonary embolus. Mild central bronchial wall thickening. The central airways are patent. No pneumothorax. Mild emphysema. The left lung is clear. There is focal area of consolidation with surrounding groundglass opacities within the right upper lobe anteriorly best in image 142. This measures approximately 4 cm in size. There is associated interlobular septal thickening within the anterior right upper lobe. There is an additional focal irregular airspace opacity within the right middle lobe on image 92 measuring 3 cm. IMPRESSION: 1. No evidence for a pulmonary embolus. 2. There are 2 focal airspace opacities within the right upper lobe and right middle lobe as described above which correspond to the chest x-ray abnormalities. These favor a pneumonia. However, an underlying pulmonary lesion would be difficult to exclude. Therefore, one to 2 month chest x-ray or chest CT follow-up recommended to ensure complete resolution. 3. Mild emphysema. 4. Mildly enlarged right paratracheal and right hilar lymph nodes. These are likely reactive. Hospital Course (1) Pleurisy: (2) COPD with emphysema: (3) Pneumonia: (4) CAD (coronary atherosclerotic disease): (5) S/P drug eluting coronary stent placement: (6) Current tobacco use: Plan Mr. Silvestre San is a 58 year old gentleman with past medical history notable for obstructive cad s/p darya mLAD and proxLAD, HTN, HLD, and chronic ongoing tobacco use who presented to the [facility] ED due to sudden onset right chest pain. Pleuritic chest pain Abnormal CT Chest, likely lobar pneumonia on Emphysema Pain corresponds to lobar infiltrate on imaging Respiratory bio fire negative for influenza A/B, RSV as well as COVID-19, procalcitonin negative Pulmonary consulted given concern of unilateral predominance and pleurisy, no history of lung disease per patient -Recommendations discussed with Pulmonary -Start Anoro/stiolto inhaler daily -Follow up for op pft -Levofloxacin total of 10 days -Will need repeat CT chest w/o contrast--if infiltrate still present can discuss if bronch necessary -Sputum culture and legionella/mycoplasma pending -Mucinex BID and flutter valve -pleuritic chest pain has resolved Chronic, daily tobacco use > [id number] smoking history, currently smoking 3 packs a day Smoking cessation emphasized Nicotine patch Obstructive CAD s/p DARYA to the mid LAD on 05/01/22 and DARYA to the prox LAD on 10/23/22 (overlapping with prior stent) HTN -negative nuclear stress test December 2022 for atypical chest pain -Compliant with DAAPT regimen, Trop negative, symptoms not consistent with ACS/atypical -Continue plavix ASA -Continue Losartan 50mg daily (no longer on lisinopril), amlodipine 5mg daily, Metoprolol XL 25mg Dyslipidemia - continue statin History of Syncope in April 2022 S/P LINQ- no recurrence No further episodes, CTM Depression Continue home Bupropion 150mg and citalopram 20mg Total Time Total Time Spent Total Time Spent (In Minutes): 40 Discharge Plan Discharge Items Patient Disposition: Home - Self-Care Reason For Visit: PLEURISY Discharge Diagnosis: Multilobular pneumonia Activity: Per Instructions section Non-emergency contact: Primary Care Provider Call non-emergency contact if: you have any medication questions and your symptoms worsen Follow-up/Referrals: Evans Carmona MD [Primary Care Provider] - Diet: Heart Healthy Addtl Attending Provider Instructions: Follow up with your primary care doctor within 1 week. Finish antibiotic treatment with levofloxacin as prescribed. Take guaifenesin and use Anoro as prescribed. Pending Studies at Discharge: Yes Studies:: blood cultx, sputum cultx, legionella, mycoplasma Stand-Alone Forms: My [facility] [x+1], Smoking Cessation Medications and DC Order Prescriptions: New guaifenesin [Mucinex] 600 mg Tablet Extended Release 12hr 600 mg PO Q12 10 Days Qty: 20 0RF Anoro Ellipta 62.5-25 mcg/actuation Blister With Device 1 inh inhalation DAILY Qty: 14 0RF levofloxacin 750 mg tablet 750 mg PO DAILY 8 Days Qty: 8 0RF Continued amlodipine 5 mg Tablet 5 mg PO DAILY rosuvastatin 10 mg Tablet 10 mg PO DAILY isosorbide mononitrate 30 mg Tablet Extended Release 24 Hr 15 mg PO DAILY metoprolol succinate 25 mg Tablet Extended Release 24 Hr 25 mg PO BID clopidogrel 75 mg Tablet 75 mg PO QAM Qty: 30 0RF aspirin 81 mg Tablet,Delayed Release (Dr/Ec) 81 mg PO QAM Qty: 90 1RF nicotine [Nicoderm CQ] 21 mg/24 hr patch 24 hour 1 patch transdermal DAILY Qty: 14 1RF Discharge Orders: Discharge Order (Routine); Ordered 10/14/23 Ordered By: Antonio Mccarty Admission Data Admit Date/Time: 10/13/23 12:13 Attending Provider: Antonio Mccarty Admit Provider: Arelis Pretty Primary Care Provider: Evans Carmona Other Providers: Arelis Pretty; Lizabeth Camacho
--- NOTE | 2023-10-15 10:10 | Electrocardiogram Report ---
Test Reason : Blood Pressure : / mmHG Vent. Rate : 088 BPM Atrial Rate : 088 BPM P-R Int : 140 ms QRS Dur : 082 ms QT Int : 320 ms P-R-T Axes : 040 027 026 degrees QTc Int : 387 ms Normal sinus rhythm When compared with ECG of 23-OCT-2022 15:03, OK interval has increased Confirmed by Sherif Archibald ([id number]) on 10/15/2023 10:10:33 AM Referred By: REFERRED SELF Confirmed By:Jitendra Archibald
== END 2023-10-14 12:15 | disposition home or self-care (01) ==
LOC: ED 09:07 → SUATTDRO 12:13 → 2W 12:13 → INTOOBSV 12:13 → 2W 14:05